=== PATIENT | female | born 1975 | race Two or more races ===

== ENCOUNTER → 2024-09-03 14:44 | Outpatient (BNVA) | payer OTHER, SELFPAY | PROVIDERS: Visit Provider Physician Assistant Surgical ==

== ENCOUNTER 2024-09-18 08:16 | Outpatient (AMB) | payer OTHER, SELFPAY ==
--- NOTE | 2024-09-18 11:57 | MHC.OFFVISWM ---
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*: Details: Start time: 11.45am, End time: 12.30pm ?I spent 40 minutes speaking with the patient on the phone plus an additional 5 minutes reviewing and updating records for a total of 45 minutes HPI Comments Details: Previous weight loss efforts: several diets Wakes up: 7am, Sleeps: 9am Breakfast: skips Lunch: 12pm (rice, beans and meat) Dinner: 6pm (root plants, plantains) Snacks: 9am (apple at times) Exercise: home stationary bike Fluids: Coffee (milk with creamer) 1cup/day, tea: rarely, soda: Coke or Pepsi, juice: none, ETOH: none PFSH Medical History (Updated 09/18/24 @ 11:59 by Nolan Strickland MD) Hypertension Morbid obesity Surgical History (Updated 09/03/24 @ 15:05 by Erlinda Feng CMA) Hx of section Family History (Updated 09/03/24 @ 15:06 by Erlinda Feng CMA) Mother No problems noted. Father No problems noted. Daughter No problems noted. Daughter No problems noted. Son No problems noted. Social History (Updated 09/03/24 @ 15:06 by Erlinda Feng CMA) Alcohol intake: never Patient Tobacco Use Status: Never used Tobacco Telehealth Telehealth Telehealth Platform: Telephone Location of provider rendering services: practice address Location of patient: address on file Patient Identification confirmed using: Name, : Yes Telehealth method: voice only Patient verbally consented to treatment: Yes Patient verbally consented to billing insurance company: Yes Patient informed of any privacy concerns related to visit: Yes Minutes spent on Phone/Video with Pt.: 45 Assessment & Plan Assessment & Plan (1) Morbid obesity: Code(s): E66.01 - Morbid (severe) obesity due to excess calories Category: Medical Plan: 1.? Plan for lap sleeve gastrectomy. If diaphragmatic or ventral hernias are present at time of surgery, these will be repaired laparoscopically as well. Risks and complications include possible conversion to an open procedure, anastomotic leak, bleeding requiring transfusion, small bowel obstruction, , DVT and pulmonary embolism, cardiac, or pulmonary complications, as termite control servicer complications such as anastomotic ulcer, insufficient weight loss and vitamin deficiencies. I emphasized the importance of close follow-up, adherence to instructions and good communication. 2. Nutritional counseling. Start with 2 CELEBRATE REBUILD protein (buy at [facility] [employer]) shakes (TWO scoops EACH in 8oz low fat unsweetened almond milk each) at 8am-10am and 11am-1pm, 1 protein bar (CELEBRATE protein bars, buy at [facility] [employer]) at 2pm-4pm, dinner at 5pm (12 forks of protein and 12 forks of salad/vegetables) AND one more protein bar after dinner at 7pm-9pm. So you do 2 protein shakes, 2 protein bars and one meal per day. Meal to include lean meat (beef, fish, pork, turkey, chicken), or northern irish yogurt, or egg whites, or beans with a salad with olive oil and fruits (berries, pears, apples, kiwi). Avoid salt, breads, potatoes, rice, pasta, desserts. 3. Each shake would be drunk slowly, like coffee in a period of 2 hours. 4. Cut each bar in 4 pieces and eat each piece in 30min ?to make each bar last 2 hours. 5. I emphasized the importance of measuring accurately the food portion and measure it when serving the food in plate 6. The meal portions include 12 full-size forks of meat and 12 full-size forks of salad. You always eat the meat portion but you can replace up to 6 forks for salad/vegetables with rice, potatoes or pasta, or a fruit ?if you like. The less you do it the better weight loss will be. 7. One full-size fork is what it can be scooped on the fork without falling aside and not what can be bit with the fork. Use regular forks like those you find in a typical restaurant. 8.? Please send me weight measurements as soon as possible and then once a week. Always include your diet and exercise plan. 9. Start stationary bike at a resistance level of 0.0 Increase level by 1.0 every 3 min to a max level of 6.0. Stay at this level for 3 min and then return to level 0.0 and repeat same steps until 300 calories are burned. Goal is to burn 2000 calories per week on exercise 10.?It is important of avoiding and for at least 18 months postoperatively and has been discussed at the infosession. 11. Goal is to lose at least 1.5-2lbs per week 12. Goal to lose 10% of your weight before surgery, which is about 36lbs. Ultimate weight goal: 320lbs before surgery 13. Please follow the diet plan exactly without any change. If you don't like something about the plan or you feel hungry you need to communicate with me so I can help you revise the plan. You should not change the plan yourself. 14. To be scheduled for EGD to assess the stomach's anatomy. The possibility of biopsies was discussed. Patient needs to avoid use of NSAIDs and aspirin for 1 week prior to EGD. Risks of perforation and bleeding was discussed with the patient. This will be an outpatient procedure with IV sedation.
== END 2024-09-18 12:31 | disposition home or self-care (01) ==
LOC: HO.HBS 08:16
PROVIDERS: Visit Provider Surgery
DX: E66.01 Morbid (severe) obesity due to excess calories (principal)
CPT/HCPCS: 99204

== ENCOUNTER → 2024-09-18 08:16 | Outpatient (BNVA) | payer OTHER, SELFPAY | PROVIDERS: Visit Provider Surgery ==

== ENCOUNTER 2024-09-30 09:18 | Outpatient (REF) | payer OTHER, SELFPAY ==
--- NOTE | 2024-09-30 09:30 | ECG_ITS ---
Test Reason : mor obesity e66.01 Blood Pressure : / mmHG Vent. Rate : 075 BPM Atrial Rate : 075 BPM P-R Int : 170 ms QRS Dur : 108 ms QT Int : 424 ms P-R-T Axes : 052 015 134 degrees QTc Int : 473 ms Normal sinus rhythm Minimal voltage criteria for LVH, may be normal variant ( [place] product ) T wave abnormality, consider lateral ischemia Prolonged QT Abnormal ECG No previous ECGs available Referred By: Nolan Strickland Electronically Signed By:ELY HYDE
[2024-09-30 09:56] LABS: MANUAL DIFF FLAG NO
[2024-09-30 10:57] LABS: Basophils Percent Auto 0.8 % (0-2); Eosinophils Absolute Auto 0.1 X10*3/uL (0.0-0.4); Eosinophils Percent Auto 2.1 % (0-4); Hematocrit 38.5 % (37.0-47.0); Hemoglobin 12.8 g/dl (12.0-16.0); Imm Gran Abs Auto 0.01 X10*3/uL (0.00-0.03); Imm Gran Pct Auto 0.2 % (0.0-0.4); Lymphocytes Absolute Auto 1.5 X10*3/uL (1.2-4.9); Lymphocytes Percent Auto 30.8 % (20-40); Mean Corpuscular HGB Conc 33.2 g/dl (31.0-35.0); Mean Corpuscular Hemoglobin 27.1 pg (27.0-33.0); Mean Corpuscular Volume 81.6 fL (80.0-98.0); Mean Platelet Volume 11.8 fL (9.4-12.3); Monocytes Absolute Auto 0.5 X10*3/uL (0.1-1.2); Monocytes Percent Auto 10.7 % (2-11); Neutrophils Absolute Auto 2.6 x10*3/uL (2.0-8.3); Neutrophils Percent Auto 55.4 % (45-73); Platelet Count 178 X10*3/uL (160-400); Red Blood Count 4.72 X10*6/uL (4.20-5.50); Red Cell Distribution Width 14.6 % (11.0-16.0); White Blood Count 4.8 X10*3/uL (4.8-10.8)
[2024-09-30 11:07] LABS: Estimated Average Glucose 105 mg/dL; Hemoglobin A1C 104.9714 umol/L; Hemoglobin A1c % 5.3 % (<6.0); Total Hemoglobin (HGBA1C) 3061.7896 umol/L
[2024-09-30 11:52] LABS: Alanine Aminotransferase 28 U/L (0-31); Albumin Level 4.1 g/dL (3.5-5.0); Alkaline Phosphatase 71 U/L (39-117); Anion Gap 15 (12-20); Aspartate Amino Transferase 36 U/L (5-31); Blood Urea Nitrogen 16 mg/dL (9-16); Calcium 9.6 mg/dL (8.4-10.2); Carbon Dioxide 27 mmol/L (22-29); Chloride 105 mmol/L (96-108); Cholesterol 229 mg/dL (<200); Estimated Glomerular Filt Rate > 60; Ferritin 39 ng/mL (10-250); Glucose Random 102 mg/dL (60-115); HDL Cholesterol 62 mg/dL (>40); Iron 141 mcg/dL (30-160); LDL Cholesterol Calculated 149 mg/dL (<100); Percent Iron Saturation 50 % (15-50); Potassium 3.1 mmol/L (3.3-5.1); Sodium 144 mmol/L (135-145); TSH reflex Free T4 2.26 uIU/mL (0.32-4.0); Total Iron Binding Capacity 280 mcg/dL (228-428); Total Protein 7.3 g/dL (6.5-8.0); Triglycerides 91 mg/dL (<150); Unsaturated Iron Binding 139 ug/dL; Vitamin D 25-OH Total 34.5 ng/mL (>30)
[2024-09-30 12:01] LABS: Folate 14.3 ng/mL (> or = 4.0); Vitamin B12 356 pg/mL (200-900)
[2024-09-30 12:22] LABS: Insulin 17 uU/mL (2-29)
[2024-10-04 22:03] LABS: Zinc 62 mcg/dL (60-130)
[2024-10-06 15:17] LABS: Vitamin B1 10 nmol/L (8-30)
[2024-10-07 08:58] LABS: Vitamin A 42 mcg/dL (38-98)
== END 2024-09-30 09:19 | disposition home or self-care (01) ==
LOC: HO.XRAY 09:18
PROVIDERS: PCP Internal Medicine; Visit Provider Surgery
DX: E66.01 Morbid (severe) obesity due to excess calories (principal); I10 Essential (primary) hypertension
CPT/HCPCS: 36415; 71046; 80053; 80061; 82306; 82607; 82728; 82746; 83036; 83525; 83540; 84425; 84443; 84590; 84630; 85025; 86140; 93005

== ENCOUNTER → 2024-09-30 09:30 | Outpatient (BNV) | payer OTHER, SELFPAY | PROVIDERS: PCP Internal Medicine; Visit Provider Internal Medicine | DX: R94.31 Abnormal electrocardiogram [ECG] [EKG] (principal) | CPT/HCPCS: 93010 ==

== ENCOUNTER 2024-10-14 07:09 | Day surgery (SDC) | payer OTHER, SELFPAY ==
--- NOTE | 2024-10-12 14:17 | HO.ANESPROP2 ---
Documented by User: Yvonne Katz NP 10/12/24 14:17 HPI - Anesthesia Eval Consult details Narrative: 49yo F for Upper Endoscopy PMFSH Active Problems Active Problems: All Active Problems Abnormal EKG (Acute) Vitamin B12 deficiency (Acute) Hypokalemia (Acute) Hypertension (Acute) Morbid obesity (Acute) Past Medical History Medical History (Updated 10/03/24 @ 10:54 by Nolan Strickland MD) Hypertension Morbid obesity Family History Family History (Updated 09/03/24 @ 15:06 by Erlinda Feng CMA) Mother No problems noted. Father No problems noted. Daughter No problems noted. Daughter No problems noted. Son No problems noted. Surgical History Surgical History (Updated 09/03/24 @ 15:05 by rElinda Feng CMA) Hx of section Social History Social History (Updated 09/03/24 @ 15:06 by Erlinda Feng CMA) Alcohol intake: never Patient Tobacco Use Status: Never used Tobacco Use of substances other than those prescribed or required for medical reasons: No Have you been hit, kicked, punched, or otherwise hurt by someone within the past year? If so, by whom?: No Are you DNR?: No Advance Directives: No Advance Directives Information Provided: Yes Recently lost weight without trying: No Nutrition Risks: No Nutritional Risk Meds Allergies Allergy/AdvReac Type Severity Reaction Status Date / Time No Known Allergies Allergy Verified 09/18/24 11:58 Home Medications ?Medication ?Instructions ?Recorded ?Confirmed ?Last Taken ?Type docusate sodium 100 mg capsule 100 mg PO BID 09/03/24 09/18/24 Unknown History ferrous sulfate 325 mg (65 mg 325 mg PO DAILY 09/03/24 09/18/24 Unknown History iron) tablet hydrochlorothiazide 12.5 mg tablet 12.5 mg PO DAILY 09/03/24 09/18/24 Unknown History losartan 100 mg tablet 100 mg PO DAILY 09/03/24 09/18/24 Unknown History Assessment and Plan Assessment Anesthesia Assessment: Chart Reviewed Documented by User: Desiree Escobar MD 10/14/24 08:07 [facility] Past Medical History Medical History (Updated 10/03/24 @ 10:54 by Nolan Strickland MD) Hypertension Morbid obesity Family History Family History (Updated 09/03/24 @ 15:06 by Erlinda Feng CMA) Mother No problems noted. Father No problems noted. Daughter No problems noted. Daughter No problems noted. Son No problems noted. Family history of problems with anesthesia: No Surgical History Surgical History (Updated 09/03/24 @ 15:05 by Erlinda Feng CMA) Hx of section History of Problems with Anesthesia: No Social History Social History (Updated 09/03/24 @ 15:06 by Erlinda Feng CMA) Alcohol intake: never Patient Tobacco Use Status: Never used Tobacco Use of substances other than those prescribed or required for medical reasons: No Have you been hit, kicked, punched, or otherwise hurt by someone within the past year? If so, by whom?: No Are you DNR?: No Advance Directives: No Advance Directives Information Provided: Yes Recently lost weight without trying: No Nutrition Risks: No Nutritional Risk Meds Allergies Allergy/AdvReac Type Severity Reaction Status Date / Time No Known Allergies Allergy Verified 09/18/24 11:58 Home Medications ?Medication ?Instructions ?Recorded ?Confirmed ?Last Taken ?Type docusate sodium 100 mg capsule 100 mg PO BID 09/03/24 09/18/24 Unknown History ferrous sulfate 325 mg (65 mg 325 mg PO DAILY 09/03/24 09/18/24 Unknown History iron) tablet hydrochlorothiazide 12.5 mg tablet 12.5 mg PO DAILY 09/03/24 09/18/24 Unknown History losartan 100 mg tablet 100 mg PO DAILY 09/03/24 09/18/24 Unknown History Exam Airway Mallampati Class: II TM Dist: >3cm Neck ROM: Full Assessment and Plan Assessment Anesthesia Assessment: Anesthesia Plan Discussed Final Anesthetic Review Family History of Problems with Anesthesia: No History of Problems with Anesthesia: No NPO: Yes ASA Class: III Final Preanesthetic Review: No Changes in Pt Med Stat, Meds/Allgs Chart Reviewed, Consent Obtained/Reviewed and Anes Risks/Benef Reviewed Patient Risk: Intermediate Procedure Risk: Low Anesthetic Plan Anesthetic Plan: TIVA Disposition: Standard PACU
[2024-10-14 07:57] VITALS: BMI 52.6
[2024-10-14 08:20] VITALS: BP 167/94; PULSE 84; RESP 16; TEMP 36.6; O2SAT 100
[2024-10-14] MEDS: Lactated Ringers 1,000 ML 80 ML IVCONT (08:20)
--- NOTE | 2024-10-14 08:45 | MHC.SHP ---
Pre-Procedural Eval Section A - 24 Hr Update-Section A only Date of Service: 10/14/24 The patient is an INPATIENT: No The patient has been examined within 24 hours of the surgical procedure. The History & Physical has been completed within 30 days and I have reviewed it.: Yes Section B - Complete if H&P > 30 days Chief Complaint: Morbid (severe) obesity due to excess calories Relevant Family History (Specify if Yes): No Relevant Social History: None Present Medications: None Medical History: No relevant PMH History of Previous Operations: No relevant previous surgery Allergies: Allergies Allergy/AdvReac Type Severity Reaction Status Date / Time No Known Allergies Allergy Verified 10/14/24 08:22 Review of Systems Sugical H&P ROS: Negative: Constitution, Cardiovascular, Respiratory, Neurological, Psychiatric, Hem-Onc, Allergic/Immunologic, Gastrointestinal, Genitourinary, Musculoskeletal, Integumentary, Endocrine and Eyes/Ears/Nose/Throat Exam Surgical H&P Exam: Normal: HEENT, Normal: Heart, Normal: Lungs, Normal: Extremities, Normal: Abdomen, Normal: Skin and Normal: Neurological Plan Diagnosis/Plan: Unchanged (EGD to assess the stomach's anatomy. Risks of bleeding and perforation were discussed with the patient and she is in agreement with the plan.) I have reviewed the history and physical and performed a pertinent physical examination on my patient. No changes have occurred unless specified. Time Spent With Patient Time: Total time managing care of this patient today ____ minutes.
--- NOTE | 2024-10-14 08:51 | PM.OP ---
Brief Operative Note Date of Service: 10/14/24 Pre-op diagnosis: Morbid obesity Post-op diagnosis: same (Large gastric polyps) Procedure: PROCEDURE DATE: 10/14/2024 PREOPERATIVE DIAGNOSIS: Morbid obesity POSTOPERATIVE DIAGNOSIS: ?Same as above. 1) large gastric polyps PROCEDURE: [id number] with biopsies Surgeon: ?Randolph Strickland M.D.. Ph.D. Human Resource Analyst: None ? Anesthesia: IV sedation Estimated blood loss: ?Minimal FINDINGS AND PROCEDURE: ? OPERATIVE INDICATIONS: ?The patient is a 49 year old female known to me who is interested in bariatric surgery.. Based on this information I recommended an upper endoscopy to evaluate the stomach's anatomy. Risks and complications of the surgery were discussed with the patient in advance particularly the possibility of perforation or bleeding that may require surgical intervention. The patient understood the risks and was in agreement with the plan. ? PROCEDURE: After informed consent was obtained by the patient, the patient was ?transferred to the Operating Room and was placed in the supine position.? After successful induction of IV sedation, a mouth block was inserted and the patient was placed in the left lateral decubitus position. An upper endoscopy was performed next, the oropharynx and esophagus appeared within the normal limits. There was no hiatal hernia. The z-line was smooth. Two biopsies were obtained from the distal esophagus 2-3 cm proximal to the GE junction and two additional biopsies from the GE junction. The stomach was entered and it appeared to be of normal size. There was no gastritis. There was a large 1-2cm mobile polyp with inflammatory changes and large stalk at the mid gastric body. Three biopsies were obtained. There was no stricture or ulcer. A biopsy was obtained from the gastric fundus and antrum. No significant bleeding was noted from any of the biopsy sites. Retroflexion of the scope revealed a normal GE junction. The scope was then advanced into the duodenum which appeared to be normal as well. There was a large 1-2cm mobile polyp with inflammatory changes and large stalk originating from the pylorus and laying into the 1st portion of the duodenum. Four biopsies were obtained.At that point the duodenum ?and the stomach were decompressed and the scope was withdrawn from the patient's mouth. The patient extubated and was transferred in stable condition to the Recovery Room for further care. I was present and performed all steps of the procedure. There were no residents to assist with this case. Randolph Strickland M.D., Ph.D. Surgeon: Nolan Strickland MD Anesthesia: MAC Was an Human Resource Analyst used for this Procedure?: No Estimated blood loss (mL): 0 IV fluids (mL): 400 Urine output (mL): 0 (No Chavez to record output) Pathology: other (1) antrum x1, 2) fundus x1, 3) GE junction x2, 4) distal esophagus x2, 5) mid-gastric body polyp x3, 6) pyloric gastric polyp x4) Condition: stable Disposition: PACU
[2024-10-14 09:31] VITALS: BP 113/75; PULSE 74; RESP 16; TEMP 36.4; O2SAT 100
[2024-10-14 09:46] VITALS: BP 128/79; PULSE 80; RESP 18; TEMP 36.4; O2SAT 99
== END 2024-10-14 10:32 | disposition home or self-care (01) ==
PROVIDERS: PCP Internal Medicine; Visit Provider Surgery
PROC: 0DJ08ZZ Inspection of Upper Intestinal Tract, Via Natural or Artificial Opening Endoscopic (ICD-10-PCS; CPT 43235; principal; 2024-10-14 08:50)
DX: E66.01 Morbid (severe) obesity due to excess calories (principal); Z68.43 Body mass index [BMI] 50.0-59.9, adult; K31.7 Polyp of stomach and duodenum; I10 Essential (primary) hypertension; Z79.899 Other long term (current) drug therapy
CPT/HCPCS: 43239; 88305; 88313; 88342; J2003; J2704

== ENCOUNTER → 2024-10-14 07:09 | Outpatient (BNV) | payer OTHER, SELFPAY | PROVIDERS: PCP Internal Medicine; Visit Provider Surgery | DX: K31.7 Polyp of stomach and duodenum (principal) | CPT/HCPCS: 43239 ==

== ENCOUNTER → 2024-10-29 08:08 | Outpatient (AMB) | payer OTHER, SELFPAY ==
--- NOTE | 2024-10-29 08:07 | MHC.WMTHER ---
Intake Intake Visit Reasons: VIDEO BH Intake Allergies No Known Allergies Allergy (Verified 10/14/24 08:22) [facility] Medical History (Updated 11/14/24 @ 10:58 by Nolan Strickland MD) Hypertension Morbid obesity Surgical History (Updated 09/03/24 @ 15:05 by Erlinad Feng CMA) Hx of section Family History (Updated 09/03/24 @ 15:06 by Erlinda Feng CMA) Mother No problems noted. Father No problems noted. Daughter No problems noted. Daughter No problems noted. Son No problems noted. Social History (Updated 09/03/24 @ 15:06 by Erlinda Feng CMA) Alcohol intake: never Patient Tobacco Use Status: Never used Tobacco Behavioral Health Assessment Weight Management Therapy Therapy Notes Details PT is a 49 years old female, who presents for a visit to complete BH assessment as part of surgical weight loss program. Presenting Concerns Referral Source WMP Provider. PT has initial visit with Dr. Balbuena on 09/18/2024 Reason for referral Completion of behavioral health assessment as part of process for weight-loss surgery. Precipitating Event Obesity. 356Lbs as of 09/03/2024 Living Situation Current Living Situation Rent At risk of losing current housing? No Satisfied with current living situation? Yes Comments PT lives with her and 2 daughters Food/Weight/Diet Expectations of change The initial goal is to lose 10% of her weight before surgery, about 36 lbs. Ultimate weight goal: 320lbs before surgery Most recent weight (): 330Lbs PT is implementing the following: Current meal plan: 2 protein shakes, 2 protein bars, and one meal per day. Exercise plan: History/Relationship with food Example of meals before starting the program: Breakfast: Lunch: Dinner: Snacks: Drinks/Liquids: History/Relationship with weight In the last 10 years, the patient's Lowest weight was and highest Social History Family history and relationship 26 years ago. She has 2 daughters, who are 21 and 13, and 1 child. PT has 6 siblings. Mother alive and father passed. 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 Developmental history and status None reported. Social support Sister, daughter. Community support PCP. Yazidi/Spirituality Protestant. Cultural/Ethnic information Born and raised in [facility]. Moved to the 2 years ago. Legal Involvement and History Current or historical involvement with the legal system? None reported. Education Highest grade completed 8th grade. Preferred learning style Learn by doing and Visual Currently enrolled in educational program? No Interested in further educational program? Yes (Wants to start ESL classes. 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 Employment Employment Status [employer] ([employer] - 38 Hr at week.) Wants help to find employment? No Meaningful activities Reading, Family activities. Financial Situation Describe current financial situation Comfortable and Occasional struggle Financial assistance? None Mental Health and Addiction Treatment Current/Past substance abuse? No Comments Alcohol: Socially. 1-2 beers. Cigarettes/Tobacco: None Cannabis/Edibles: None Current/Past addictive behavior concerns? No Psychiatric history Never has been in treatment. PT denies ever being in crisis or inpatient for mental health. There is no history and/or current concern about SI/Sa and self-harm or other harm. Medical and Physical Health Summary Additional Medical History not covered in history None reported Sexual History concerns None reported Physical exam in the last year? Yes Questionnaires PHQ-9 Over the last 2 weeks, how often have you been bothered by any of the following problems? 1. Little interest or pleasure in doing things: not at all 2. Feeling down, depressed, or hopeless: not at all 3. Trouble falling or staying asleep, or sleeping too much: nearly every day 4. Feeling tired or having little energy: nearly every day 5. Poor appetite or overeating: more than half the days 6. Feeling bad about yourself - or that you are a failure or have let yourself or your family down: several days 7. Trouble concentrating on things, such as reading the newspaper or watching television: not at all 8. Moving or speaking so slowly that other people could have noticed. Or the opposite - being so fidgety or restless that you have been moving around a lot more than usual: not at all 9. Thoughts that you would be better off or of hurting yourself in some way: not at all Total score: 9 Depression Screening Interpretation: Positive (From New PT pack. New one will be administered at next visit.) Depression Screening Done: Yes Source: Developed by Drs. Jonathan Jaimes, Eliana Lou, Jamison Newberry and colleagues, with an educational autumn from [employer]. Binge Eating Scale Group 1 A. I don't feel self-conscious about my wt. or body size when I'm with others. B. I feel concerned about how I look to others, but it normally does not make me fell disappointed with myself C. I do get self-conscious about my appearance and wt. which makes me feel disappointed in myself. D. I feel very self-conscious about my wt. and frequently I feel intense shame and disgust for myself. I try to avoid social contacts because of my self-consciousness. Response Group 1: B Group 2 A. I don't have any difficulty eating slowly in the proper manner. B. Although I seem to gobble down foods, I don't end up feeling stuffed because of eating to much. C. At times, I tend to eat quickly and then, I feel uncomfortably full afterwards. D. I have the habit of bolting down my food, without really chewing it. When this happens I usually feel uncomfortably stuffed because I've eaten to much. Response Group 2: D Group 3 A. I feel capable to control my eating urges when I want to. B. I feel like I have failed to control my eating more than the average person. C. I feel utterly helpless when it comes to feeling in control of my eating urges. D. Because I feel so helpless about controlling my eating I have become very desperate about trying to get control. Response Group 3: D Group 4 A. I don't have the habit of eating when I'm bored. B. I sometimes eat when I'm bored, but often I'm able to get busy and get my mind off food. C. I have a regular habit of eating when I'm bored, but occasionally, I can use some other activity to get my mind off eating. D. I have a strong habit of eating when I'm bored. Nothing seems to help me breath the habit. Response Group 4: C Group 5 A. I'm usually physically hungry when I eat something. B. Occasionally, I eat something on impulse even though I really am not hungry. C. I have the regular habit of eating foods, that I might not really enjoy, to satisfy a hungry feeling even though physically, I don't need the food. D. Although I'm not physically hungry, I get a hungry feeling in my mouth that only seems to be satisfied when I eat a food, like sandwich, that fills my mouth. Sometimes, when I eat the food to satisfy my mouth hunger, I then spit the food out so I won't gain weight. Response Group 5: A Group 6 A. I don't feel any guilt or self-hate after I overeat. B. After I overeat, occasionally I feel guilt or self-hate. C. Almost all the time I experience strong guilt or self-hate after I overeat. Response Group 6: A Group 7 A. I don't lose total control of my eating when dieting even after periods when I overeat. B. Sometimes when I eat a forbidden food on a diet, I feel like I blew it and eat even more. C. Frequently, I have the habit of saying to myself, I've blown it now, why not go all the way, when I overeat on a diet. When that happens I eat more. D. I have a regular habit of starting a strict diets for myself but I break the diets by going on an eating binge. My life seems to be either a feast or famine. Response Group 7: D Group 8 A. I rarely eat so much food that I feel uncomfortably stuffed afterwards. B. Usually about once a month, I each such a quantity of food, I end up feeling very stuffed. C. I have regular periods during the month when I eat large amounts of food, either at mealtime or at snacks. D. I eat so much food that I regularly feel quite uncomfortable after eating and sometimes a bit nauseous. Response Group 8: C Group 9 A. My level of calorie intake does not go up very high or go down very low on a regular basis. B. Sometimes after I overeat, I will try to reduce my caloric intake to almost nothing to compensate for the excess calories I've eaten. C. I have a regular habit of overeating during the night. It seems that my routine is not to be hungry in the morning but overeat in the evening. D. In my adult years, I have had week-long periods where I practically starve myself. This follows periods when I overeat. It seems I live a life of either feast or famine. Response Group 9: D Group 10 A. I usually am able to stop eating when I want to. I know when enough is enough. B. Every so often, I experience a compulsion to eat which I can't seem to control. C. Frequently, I experience strong urges to eat which I seem unable to control, but at other times I can control my eating urges. D. I feel incapable of controlling urges to eat. I have a fear of not being able to stop eating voluntarily. Response Group 10: B Group 11 A. I don't have any problem stopping eating when I feel full. B. I usually can stop eating when I feel full but occasionally overeat leaving me feeling uncomfortably stuffed. C. I have a problem stopping eating once I start and usually I feel uncomfortably stuffed after I eat a meal. D. Because I have a problem not being able to stop eating when I want, I sometimes have to induce vomiting to relieve my stuffed feeling. Response Group 11: B Group 12 A. I seem to eat just as much when I'm with others, Family social gatherings as when I'm by myself. B. Sometimes, when I'm with other persons, I don't eat as much as I want to eat because I'm self-conscious about my eating. C. Frequently, I eat only a small amount of food when others are present, because I'm very embarrassed about my eating. D. I feel so ashamed about overeating that I pick times to overeat when I know no one will see me. I feel like a closet eater. Response Group 12: B Group 13 A. I eat three meals a day with only an occasional between meal snack. B. I eat 3 meals a day, but I also normally snack between meals. C. When I am snacking heavily, I get in the habit of skipping regular meals. D. There are regular periods when I seem to be continually eating, with no planned meals. Response Group 13: D Group 14 A. I don't think much about trying to control unwanted eating urges. B. At least some of the time, I feel my thoughts are pre-occupied with trying to control my eating urges. C. I feel that frequently I spend much time thinking about how much I ate or about trying not to eat anymore. D. It seems to me that most of my waking hours are pre-occupied by thoughts about eating or not eating. I feel like I'm constantly struggling not to eat. Response Group 14: C Group 15 A. I don't think about food a great deal. B. I have strong craving for food but they last only for brief periods of time. C. I have days when I can't seem to think about anything else but food. D. Most of my days seem to be pre-occupied with thoughts about food. I feel like I live to eat. Response Group 15: B Group 16 A. I usually know whether or not I'm physically hungry. I take the right portion of food to satisfy me. B. Occasionally, I feel uncertain about knowing whether or not I'm physically hungry. A these times it's hard to know how much food I should take to satisfy me. C. Even though I might know how many calories I should eat, I don't have any idea what is a normal amount of food for me. Response Group 16: C Binge Eating Score: 28 Score less than 17 Minimal Risk Score between 18-26 Moderate Risk Score between 27-46 High Risk Assessment & Plan Assessment & Plan (1) Morbid obesity: Code(s): E66.01 - Morbid (severe) obesity due to excess calories (2) Adjustment disorder, unspecified: Code(s): F43.20 - Adjustment disorder, unspecified (3) Problems related to inappropriate diet and eating habits: Code(s): Z72.4 - Inappropriate diet and eating habits Plan PT is not yet cleared. She will return on 11/16/24 at 8:00 AM via Telehealth to continue the assessment. Telehealth Telehealth Telehealth Platform: [employer] Location of provider rendering services: other Location of patient: address on file Patient Identification confirmed using: Name, : Yes Telehealth method: video Patient verbally consented to treatment: Yes Patient verbally consented to billing insurance company: Yes Patient informed of any privacy concerns related to visit: Yes Minutes spent on Phone/Video with Pt.: 60 Coding Level of Care Code New Pt Tele Psy Diag Ariadneal ([id number]) Patient Type New Diagnoses Morbid obesity E66.01 Adjustment disorder, unspecified F43.20 Problems related to inappropriate diet and eating habits Z72.4 Time Spent (min) 60
== END ==
PROVIDERS: PCP Internal Medicine; Visit Provider Counselor Mental Health
DX: E66.01 Morbid (severe) obesity due to excess calories (principal); F43.20 Adjustment disorder, unspecified; Z72.4 Inappropriate diet and eating habits
CPT/HCPCS: 90791

== ENCOUNTER 2024-10-30 10:33 | Outpatient (REF) | payer OTHER, SELFPAY | END 2024-10-30 10:34 | disposition home or self-care (01) | LOC: HO.US 10:33 | PROVIDERS: PCP Internal Medicine; Visit Provider Surgery | DX: E66.01 Morbid (severe) obesity due to excess calories (principal); I10 Essential (primary) hypertension | CPT/HCPCS: 76700; 76981 ==

== ENCOUNTER → 2024-10-30 10:36 | Outpatient (BNV) | payer OTHER, SELFPAY | PROVIDERS: PCP Internal Medicine; Visit Provider Radiology Diagnostic Radiology | DX: K80.20 Calculus of gallbladder without cholecystitis without obstruction (principal); R16.1 Splenomegaly, not elsewhere classified | CPT/HCPCS: 76700 ==

== ENCOUNTER → 2024-11-12 08:12 | Outpatient (REF) | payer OTHER, SELFPAY ==
--- NOTE | 2024-11-12 08:15 | CA_ITS ---
Acquisition Time: 2024-11-12 09:08:54 Total Exercise Time: 00:03:05 Test Indications: Pre-Op Evaluation HTN,Abnormal ECG Medications: HCTZ LOSARTAN IRON COLACE Protocol: KEVIN Max HR: 171 BPM 101% of Pred: 169 BPM Max BP: 248/120 mmHG Max Work Load: 4.6 METS Exercise Stress Test with exercise 3 mins 5 secs of Kevin Protocol, held at stage 1, achieving 98% MPHR, reports of severe SOB, requesting to stop, no chest discomfort, without any arrythmias, with baseline BP 128/70 that went up to 248/120 with exercise. With EKG changes meeting criteria for ischemia - ST depression noted inferiorly and in V4-V6. In recovery, continues to deny chest discomfort, breathing returned to baseline. 23 minutes into recovery and EKGs improved very gradually. BP improved to 148/98. Recommend further testing with Cardiology referral, if needed. Test reviewed with Dr. Lozada. Referred By: Nolan Strickland Electronically Signed By: Regulo Harvey
--- NOTE | 2024-11-12 08:15 | CA_ITS ---
Transthoracic Echocardiogram Patient (Last, First, Middle): Rupinder Engle, Gender: Female Date of : 1975 Age: 49 Procedure Date: 11/12/2024 Procedure Type: Transthoracic Echocardiogram Location: OP Height: 172.72 cm Weight: 147.87 kg BSA: 2.52 m2 Heart Rate: bpm BP: 128 / 78 mmHg Tile Finisher: [place] Referring MD: Nolan Strickland MD Symptoms: R94.31 - Abnormal electrocardiogram [ECG] [EKG] Study Quality: Adequate ECG Rhythm: Sinus Conclusions: - The left ventricular systolic function is normal. The calculated ejection fraction is 65% by biplane method. - No obvious valvular pathology seen on this study. - There is mild dilatation of the ascending aorta measuring 4.00 cm. Findings Left Ventricle Normal left ventricular cavity size. There is mildly increased left ventricular wall thickness. The left ventricular systolic function is normal. The calculated ejection fraction is 65% by biplane method. There is no evidence of regional wall motion abnormalities. Diastolic function is normal for age. Right Ventricle Normal right ventricular cavity size and systolic function. Atria Both atria are normal in size. Aortic Valve There is a normal trileaflet aortic valve. There is no aortic valve stenosis. There is no aortic valve regurgitation. Mitral Valve The mitral valve appears normal. There is no mitral valve regurgitation. There is no mitral valve stenosis. Pulmonic Valve The pulmonic valve is likely normal. Tricuspid Valve There is no tricuspid valve regurgitation. Tricuspid regurgitation envelope is inadequate for calculation of right ventricular systolic pressure. Great Vessels There is mild dilatation of the ascending aorta measuring 4.00 cm. Venous The inferior vena cava was not well visualized. Pericardium/Pleural There is no evidence of pericardial effusion. Prior Study Comparison No prior study available for comparison. Recommendations, Care & Conclusions No obvious valvular pathology seen on this study. Measurements 2D Linear Measurements IVSd: 1.26 0.6-0.9/0.6-1.0 cm LVIDd: 4.72 3.9-5.3/4.2-5.9 cm LVIDd Index: 1.87 2.4-3.2/2.2-3.1 cm/m2 LVIDs: 2.98 2.0-3.6 cm LVPWd: 1.27 0.7-1.1 cm LA Diam: 4.00 2.7-3.8/3.0-4.0 cm LAIDs Index: 1.59 1.5-2.3 cm/m2 LV Mass: 286.96 67-162/88-224 g LV Mass Index: 113.87 43-95/49-115 g/m2 LVOT Diam: 2.30 3.0+(-)1.3 cm 2D Systolic Function EF 4C: 66.70 >55% EF 2C: 66.50 >55% EF BiP: 65.40 >55% Mitral Valve MV Pk E: 0.85 MV PK A: 0.56 MV Decel Time: 201.00 E/A: 1.50 E'Lateral: 10.10 E'Medial: 7.72 E/E' Med: 11.00 E/E' Lat: 8.40 PHT: 59.00 MVA PHT: 3.73 Decel O'Brien: 4.24 Aortic Valve AoV Pk Luke: 1.56 AoV Mn Luke: 1.04 AoV VTI: 0.36 AoV Pk Grad: 10.00 Aov Mn Grad: 5.00 BAUTISTA Cont.VTI: 3.50 LVOT LVOT Pk Luke: 1.32 LVOT Mn Luke: 0.77 LVOT VTI: 0.30 LVOT Pk Grad: 7.00 LVOT Mn Grad: 3.00 LVOT Diam: 2.30 LVOT Area: 4.15 Diastolic Function MV Pk E: 0.85 MV Pk A: 0.56 E/A: 1.50 E'Medial: 7.72 E/E' Med: 11.00 E' Laterial: 10.10 E/E' Lat: 8.40 Right Ventricle TAPSE (mm): 27.70 TVS' Luke: 13.20 Great Vessels Aorta Sinus of Valsalva: 3.38 2.0-3.[address] Ridge: 3.13 1.7-3.4 cm Ao Asc: 4.00 2.1-3.4 cm Ao Arch: 3.50 Updated in Other Vendor System with Status of Final Cristhian Lozada MD electronically signed on 11/14/2024 12:36:18 PM with status of Final
== END ==
LOC: HO.CARD 08:12
PROVIDERS: PCP Internal Medicine; Visit Provider Surgery
DX: R94.31 Abnormal electrocardiogram [ECG] [EKG] (principal)
CPT/HCPCS: 93017; 93306

== ENCOUNTER → 2024-11-12 08:15 | Outpatient (BNV) | payer OTHER, SELFPAY | PROVIDERS: PCP Internal Medicine | DX: R94.31 Abnormal electrocardiogram [ECG] [EKG] (principal); I77.810 Thoracic aortic ectasia | CPT/HCPCS: 93320; 93325; 93350 ==

== ENCOUNTER 2024-11-24 08:13 | Outpatient (AMB) | payer OTHER, SELFPAY ==
--- NOTE | 2024-11-24 08:00 | A.OFFWM_ITS ---
Intake Intake Visit Reasons: TV BH F/U Allergies No Known Allergies Allergy (Verified 10/14/24 08:22) [facility] Medical History (Updated 11/14/24 @ 10:58 by Nolan Strickland MD) Hypertension Morbid obesity Surgical History (Updated 09/03/24 @ 15:05 by Erlinda Feng CMA) Hx of section Family History (Updated 09/03/24 @ 15:06 by Erlinda Feng CMA) Mother No problems noted. Father No problems noted. Daughter No problems noted. Daughter No problems noted. Son No problems noted. Social History (Updated 09/03/24 @ 15:06 by Erlinda Feng CMA) Alcohol intake: never Patient Tobacco Use Status: Never used Tobacco Behavioral Health Assessment Weight Management Therapy Therapy Notes Details The patient is a 49-year-old female presenting for a behavioral health assessment as part of a surgical weight loss program. She reports a long history of obesity, having been over 300 lbs for several years, and is interested in weight-loss surgery to address her obesity. The patient hopes to become healthier, more active, and consistent throughout the process, recognizing it will be a long journey. The patient denies any history of mental health treatment, past behavioral health hospitalizations, or crises. She also denies any recent safety concerns regarding suicidal ideation (SI), self-harm, or harm to others. No substance use history is reported, and there is no indication of stress or emotional eating. The PHQ-9 and BES were administered today. The PHQ-9 score indicates no current symptoms of depression or other concerning psychological symptoms. The BES score has decreased, reflecting positive changes in eating behavior. The patient reports being more mindful of her hunger and cravings, eating more slowly, and following the meal plan, which has led to her feeling more satisfied. Mental status exam is within normal limits, and there is no evidence of impaired functioning. The patient demonstrates positive engagement in the weight loss program and is showing signs of improved eating behaviors. She is cleared from a behavioral health standpoint for weight-loss surgery and will Follow-up with this provider in 1-2 weeks after surgery to monitor progress. Presenting Concerns Referral Source WMP Provider. PT has initial visit with Dr. Balbuena on 09/18/2024 Reason for referral Completion of behavioral health assessment as part of process for weight-loss surgery. Precipitating Event Obesity. 356Lbs as of 09/03/2024 Living Situation Current Living Situation Rent At risk of losing current housing? No Satisfied with current living situation? Yes Comments PT lives with her and 2 daughters Food/Weight/Diet Expectations of change The initial goal is to lose 10% of her weight before surgery, which amounts to approximately 36 lbs. Her ultimate weight goal is to reach 320 lbs before the procedure. The patient started the program at a weight of 356 lbs. As of October 24, her weight was 330 lbs, and as of November 24, 2024, she weighed 319 lbs. While the patient is uncertain about her total weight loss goal, she would be satisfied with reaching at least 260 lbs. Her main objectives are to live a healthier life and to have more energy. PT is implementing the following: Current meal plan: 2 protein shakes, 2 protein bars, and one meal per day. Exercise plan: stationary bike. History/Relationship with food The patient reports [place] [facility], and her regular diet consisted mainly of carbohydrates and meats. For breakfast, she would have coffee with milk and soda crackers. Lunch typically included rice, beans, meat, and salad, making it the main meal of the day. Dinner consisted of boiled plantains with eggs. In her culture, snacking is not common, although she might have an apple if she feels hungry in the afternoon. In terms of beverages, she drinks one cup of coffee and one soda each day. The patient mentions that she sometimes eats more when she feels sad, but this is not a consistent behavior. Currently, she is doing well with her meal plan, but she finds it challenging to cook for both herself and others at work and ho me. History/Relationship with weight The patient reports that most of her family on her father's side struggle with obesity. 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 Over the past 10 years, she has maintained a weight of over 300 pounds. When she had her last child in 2011, she weighed around 320 pounds. The patient cannot recall when she last weighed under 200 pounds, but she does remember being under 300 pounds during her 20s. History/Relationship with dieting Different diets on her own. She has also done Ketto, intermittent fasting for 28 days. Around 2019 she started developing more awareness of her need to lose weight and through diet and physical activity, she lost 35Lbs. PT reports that since she has to lose a lot then she gets demotivated once is unable to lose as fast. Binge Eating Do you frequently eat large amounts of food in short periods of time, not feeling physically hungry? Yes Do you feel out of control when you eat a large amount of food in a short period of time? No Do you eat large amounts of food rapidly and typically alone? Yes Night Eating Do you wake up at least once during the night to eat? No If you wake up in the night, do you find that it is necessary to eat something in order to fall back asleep? No Do you have little or no appetite in the morning and feel very hungry in the evening, often overeating between dinner and when you go to bed? Yes Social History Family history and relationship 26 years ago. She has 2 daughters, who are 21 and 13, and 1 child. PT has 6 siblings. Mother alive and father passed. 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 Developmental history and status None reported. Social support Sister, daughter. Community support PCP. Mosque/Spirituality Mandaen. Cultural/Ethnic information Born and raised in [facility]. Moved to the 2 years ago. Legal Involvement and History Current or historical involvement with the legal system? None reported. Education Highest grade completed 8th grade. Preferred learning style Learn by doing and Visual Currently enrolled in educational program? No Interested in further educational program? Yes (Wants to start ESL classes. 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 No Meaningful activities Reading, Family activities. Financial Situation Describe current financial situation Comfortable and Occasional struggle Financial assistance? None Service Service? No Mental Health and Addiction Treatment Current/Past substance abuse? No Comments Alcohol: Socially. 1-2 beers. Cigarettes/Tobacco: None Cannabis/Edibles: None Current/Past addictive behavior concerns? No Psychiatric history There has never been any mental health treatment. The patient denies ever being in crisis or requiring inpatient care for mental health issues. There is no history or current concern regarding suicidal ideation, suicidal attempt, self-harm, or harm to others. Medical and Physical Health Summary Additional Medical History not covered in history None reported Sexual History concerns None reported Physical exam in the last year? Yes Pain Screening Current pain? Yes Pain in the last few months? Yes Comments different aches and pains in her body. Medications Is the patient compliant with medications? Yes Does the patient have Dunlap Guardian in place? Not applicable Does the patient use complimentary health approaches? No Trauma/Abuse History History of trauma? Yes (Lost a child. ) Questionnaires PHQ-9 Over the last 2 weeks, how often have you been bothered by any of the following problems? 1. Little interest or pleasure in doing things: not at all 2. Feeling down, depressed, or hopeless: several days 3. Trouble falling or staying asleep, or sleeping too much: not at all 4. Feeling tired or having little energy: not at all 5. Poor appetite or overeating: not at all 6. Feeling bad about yourself - or that you are a failure or have let yourself or your family down: not at all 7. Trouble concentrating on things, such as reading the newspaper or watching television: not at all 8. Moving or speaking so slowly that other people could have noticed. Or the opposite - being so fidgety or restless that you have been moving around a lot more than usual: not at all 9. Thoughts that you would be better off or of hurting yourself in some way: not at all Total score: 1 Depression Screening Interpretation: Negative Depression Screening Done: Yes 01617 - PHQ-9 Billing: Yes Source: Developed by Drs. Jonathan Jaimes, Eliana Lou, Jamison Newberry and colleagues, with an educational autumn from [employer]. Binge Eating Scale Group 1 A. I don't feel self-conscious about my wt. or body size when I'm with others. B. I feel concerned about how I look to others, but it normally does not make me fell disappointed with myself C. I do get self-conscious about my appearance and wt. which makes me feel disappointed in myself. D. I feel very self-conscious about my wt. and frequently I feel intense shame and disgust for myself. I try to avoid social contacts because of my self- consciousness. Response Group 1: B Group 2 A. I don't have any difficulty eating slowly in the proper manner. B. Although I seem to gobble down foods, I don't end up feeling stuffed because of eating to much. C. At times, I tend to eat quickly and then, I feel uncomfortably full afterwards. D. I have the habit of bolting down my food, without really chewing it. When this happens I usually feel uncomfortably stuffed because I've eaten to much. Response Group 2: D (Working on practicing mindful eating. ) Group 3 A. I feel capable to control my eating urges when I want to. B. I feel like I have failed to control my eating more than the average person. C. I feel utterly helpless when it comes to feeling in control of my eating urges. D. Because I feel so helpless about controlling my eating I have become very desperate about trying to get control. Response Group 3: B (D before.) Group 4 A. I don't have the habit of eating when I'm bored. B. I sometimes eat when I'm bored, but often I'm able to get busy and get my mind off food. C. I have a regular habit of eating when I'm bored, but occasionally, I can use some other activity to get my mind off eating. D. I have a strong habit of eating when I'm bored. Nothing seems to help me elvin th the habit. Response Group 4: C Group 5 A. I'm usually physically hungry when I eat something. B. Occasionally, I eat something on impulse even though I really am not hungry. C. I have the regular habit of eating foods, that I might not really enjoy, to satisfy a hungry feeling even though physically, I don't need the food. D. Although I'm not physically hungry, I get a hungry feeling in my mouth that only seems to be satisfied when I eat a food, like sandwich, that fills my mouth. Sometimes, when I eat the food to satisfy my mouth hunger, I then spit the food out so I won't gain weight. Response Group 5: A Group 6 A. I don't feel any guilt or self-hate after I overeat. B. After I overeat, occasionally I feel guilt or self-hate. C. Almost all the time I experience strong guilt or self-hate after I overeat. Response Group 6: A Group 7 A. I don't lose total control of my eating when dieting even after periods when I overeat. B. Sometimes when I eat a forbidden food on a diet, I feel like I blew it and eat even more. C. Frequently, I have the habit of saying to myself, I've blown it now, why not go all the way, when I overeat on a diet. When that happens I eat more. D. I have a regular habit of starting a strict diets for myself but I break the diets by going on an eating binge. My life seems to be either a feast or famine. Response Group 7: B (D before. She has eaten other things but has been able to return to the plan and not go back. ) Group 8 A. I rarely eat so much food that I feel uncomfortably stuffed afterwards. B. Usually about once a month, I each such a quantity of food, I end up feeling very stuffed. C. I have regular periods during the month when I eat large amounts of food, either at mealtime or at snacks. D. I eat so much food that I regularly feel quite uncomfortable after eating and sometimes a bit nauseous. Response Group 8: C Group 9 A. My level of calorie intake does not go up very high or go down very low on a regular basis. B. Sometimes after I overeat, I will try to reduce my caloric intake to almost nothing to compensate for the excess calories I've eaten. C. I have a regular habit of overeating during the night. It seems that my routine is not to be hungry in the morning but overeat in the evening. D. In my adult years, I have had week-long periods where I practically starve myself. This follows periods when I overeat. It seems I live a life of either feast or famine. Response Group 9: A (D. before. following meal plan since October. ) Group 10 A. I usually am able to stop eating when I want to. I know when enough is enough. B. Every so often, I experience a compulsion to eat which I can't seem to control. C. Frequently, I experience strong urges to eat which I seem unable to control, but at other times I can control my eating urges. D. I feel incapable of controlling urges to eat. I have a fear of not being able to stop eating voluntarily. Response Group 10: B Group 11 A. I don't have any problem stopping eating when I feel full. B. I usually can stop eating when I feel full but occasionally overeat leaving me feeling uncomfortably stuffed. C. I have a problem stopping eating once I start and usually I feel uncomfortably stuffed after I eat a meal. D. Because I have a problem not being able to stop eating when I want, I sometimes have to induce vomiting to relieve my stuffed feeling. Response Group 11: B Group 12 A. I seem to eat just as much when I'm with others, Family social gatherings as when I'm by myself. B. Sometimes, when I'm with other persons, I don't eat as much as I want to eat because I'm self-conscious about my eating. C. Frequently, I eat only a small amount of food when others are present, because I'm very embarrassed about my eating. D. I feel so ashamed about overeating that I pick times to overeat when I know no one will see me. I feel like a closet eater. Response Group 12: B Group 13 A. I eat three meals a day with only an occasional between meal snack. B. I eat 3 meals a day, but I also normally snack between meals. C. When I am snacking heavily, I get in the habit of skipping regular meals. D. There are regular periods when I seem to be continually eating, with no planned meals. Response Group 13: A (D before. Currently following meal plan. ) Group 14 A. I don't think much about trying to control unwanted eating urges. B. At least some of the time, I feel my thoughts are pre-occupied with trying to control my eating urges. C. I feel that frequently I spend much time thinking about how much I ate or about trying not to eat anymore. D. It seems to me that most of my waking hours are pre-occupied by thoughts about eating or not eating. I feel like I'm constantly struggling not to eat. Response Group 14: C Group 15 A. I don't think about food a great deal. B. I have strong craving for food but they last only for brief periods of time. C. I have days when I can't seem to think about anything else but food. D. Most of my days seem to be pre-occupied with thoughts about food. I feel like I live to eat. Response Group 15: B Group 16 A. I usually know whether or not I'm physically hungry. I take the right portion of food to satisfy me. B. Occasionally, I feel uncertain about knowing whether or not I'm physically hungry. A these times it's hard to know how much food I should take to satisfy me. C. Even though I might know how many calories I should eat, I don't have any idea what is a normal amount of food for me. Response Group 16: A (C before. ) Binge Eating Score: 16 Score less than 17 Minimal Risk Score between 18-26 Moderate Risk Score between 27-46 High Risk Assessment & Plan Assessment & Plan (1) Morbid obesity: Code(s): E66.01 - Morbid (severe) obesity due to excess calories (2) Adjustment disorder, unspecified: Code(s): F43.20 - Adjustment disorder, unspecified (3) Problems related to inappropriate diet and eating habits: Code(s): Z72.4 - Inappropriate diet and eating habits Plan The patient demonstrates positive engagement in the weight loss program and is showing signs of improved eating behaviors. She is cleared from a behavioral health standpoint for weight-loss surgery and will Follow-up with this provider in 1-2 weeks after surgery to monitor progress. Telehealth Telehealth Telehealth Platform: [facility] Location of provider rendering services: other Location of patient: address on file Patient Identification confirmed using: Name, : Yes Telehealth method: voice only Patient verbally consented to treatment: Yes Patient verbally consented to billing insurance company: Yes Patient informed of any privacy concerns related to visit: Yes Minutes spent on Phone/Video with Pt.: 60 Coding Level of Care Code Established Pt Tele Psytx >53 mins (02043) Patient Type Established Diagnoses Morbid obesity E66.01 Adjustment disorder, unspecified F43.20 Problems related to inappropriate diet and eating habits Z72.4 Additional Codes PHQ-9 - 15198 - PHQ-9 Billing: Yes ([id number]) Time Spent (min) 60
== END 2024-11-24 10:58 | disposition home or self-care (01) ==
LOC: HO.HBST 08:13
PROVIDERS: PCP Internal Medicine; Visit Provider Counselor Mental Health
DX: F43.20 Adjustment disorder, unspecified (principal); Z72.4 Inappropriate diet and eating habits; E66.01 Morbid (severe) obesity due to excess calories
CPT/HCPCS: 90837

== ENCOUNTER → 2024-12-15 10:54 | Outpatient (REF) | payer OTHER, SELFPAY ==
--- NOTE | 2024-12-15 10:57 | CA_ITS ---
Acquisition Time: 2024-12-15 11:14:34 Total Exercise Time: 00:05:15 Test Indications: Abnormal ECG,Pre-Op Evaluation Medications: LOSARTAN HCTZ IRON COLACE Protocol: KEVIN Max HR: 173 BPM 102% of Pred: 169 BPM Max BP: 148/88 mmHG Max Work Load: 4.6 METS Exercise Stress Test with exercise 5 mins 15 secs of Kevin Protocol, held at Stage 1, achieving 96% MPHR, with reports of SOB, no chest discomfort, with isolated PVCs, with normotensive response to exercise. With downsloping ST segment in the inferior leads and through V4-V6, meeting criteria for ischemia. In recovery, breathing returned to baseline. Gradual improvement in the STsegment during recovery. Echo images obtained with rest and post peak exercise. Definity contrast utilized. Test reviewed with Dr. Flores. Referred By: Nolan Strickland Electronically Signed By: Regulo Harvey
== END ==
LOC: HO.CARD 10:54
PROVIDERS: PCP Internal Medicine; Visit Provider Surgery
DX: R94.39 Abnormal result of other cardiovascular function study (principal); R94.31 Abnormal electrocardiogram [ECG] [EKG]
CPT/HCPCS: 93350; Q9957

== ENCOUNTER → 2024-12-15 10:57 | Outpatient (BNV) | payer OTHER, SELFPAY | PROVIDERS: PCP Internal Medicine | DX: R94.31 Abnormal electrocardiogram [ECG] [EKG] (principal); Z01.818 Encounter for other preprocedural examination; R06.02 Shortness of breath; I49.3 Ventricular premature depolarization | CPT/HCPCS: 93016; 93018; 93350; 93352 ==

== ENCOUNTER 2024-12-18 08:20 | Outpatient (REF) | payer OTHER, SELFPAY ==
--- NOTE | ~2024-12-18 | FL_ITS ---
EXAMINATION: XR FLUOROSCOPY UPPER GI SERIES CLINICAL INFORMATION: Morbid obesity due to axis, wrist. Presurgical evaluation. Patient has no complaints. COMPARISON: None TECHNIQUE: Fluoroscopic air contrast upper GI examination was performed utilizing standard techniques with thin and thick barium and effervescent granules. Numerous spot images were obtained. Several fluoroscopic image hold cine sequences were also obtained. This was followed by small bowel series using standard overhead radiographic techniques at specified intervals until contrast was seen in the right colon. Fluoroscopic spot radiographs were then obtained of the terminal ileum and any abnormal findings in the small bowel. FINDINGS: UPPER GI SERIES: Lateral cine images of the oropharynx and hypopharynx demonstrate normal swallow mechanism with normal epiglottic inversion and soft palate elevation. No tracheal penetration, glottic or subglottic aspiration identified. No nasopharyngeal reflux present. Hypopharyngeal structures appear normal without evidence of mass or diverticulum. There was no significant cricopharyngeal achalasia. Dual and single contrast images of the esophagus demonstrate normal caliber, contour, and mucosal pattern. No evidence of stricture, mass, or ulcerations identified. Esophageal peristalsis was normal. No evidence of hiatus hernia identified. No significant gastroesophageal reflux was seen during the course of the examination. Dual contrast and single contrast images of the stomach demonstrated normal contour and mucosal pattern. No ulcerations identified. A 10 mm filling defect in the lateral body of the stomach is present suspicious for a polyp or small mass. Contrast freely passed into the gastric antrum and duodenal bulb without delay. Single and air-contrast images of the duodenal bulb demonstrate a 10 mm filling defect, also suspicious for a polyp. The duodenal sweep has a normal appearance, course, and mucosal fold appearance. FLUOROSCOPY TIME: 2 minutes 45 seconds Number of Spot Images:11 Number of cines obtained: 12 DOSE AREA PRODUCT: 4095 uGy-m2 (microgray-meter squared) FL/FL upper GI w air IMPRESSION: 1. Oval 10 mm smooth mass in the lateral body of the stomach, likely a hyperplastic polyp. Other etiologies not excluded. 2. Similar 10 mm oval filling defect in the duodenal bulb also suspect for a polyp. 3. No significant GE reflux, hiatus hernia, or esophageal abnormality. 4. Recommend the above findings be evaluated with EGD. Electronically signed by: Adriano Chan MD 12/18/2024 09:22 QUIQUE BAL RP
--- OUTSIDE RECORDS SUMMARY | 2024-12-18 08:31 | XMS_ITS | Clinical Summary ---
Author Organization [facility] Address [address] [place] [address] Phone Care Team Providers Care Biomathematician Name Role Phone Alyson Mojica MD Primary Care Provider [phone] Allergies No known active allergies Medications losartan (COZAAR) 100 mg tablet Take 1 tablet (100 mg total) by mouth 1 (one) time each day. Take 1 Tablet by mouth daily. 90 tablet 2 09/23/20 24 Active hydroCHLOROthi azide (HYDRODIURIL) 25 mg tablet Take 1 tablet (25 mg total) by mouth 1 (one) time each day. 30 each 5 09/23/20 24 025 Active amLODIPine (NORVASC) 5 mg tablet Take 1 tablet (5 mg total) by mouth 1 (one) time each day. 30 each 5 10/19/20 24 025 Active polyethylene glycol (Golytely) 236-22.74-6.74 -5.86 gram solution Take 4L by mouth once for one dose. May substitue any PEG. Starting at 6PM the night before your procedure drink 1 8oz glasses at your own pace until you complete half of the gallon. Finish 2nd half of the gallon 5 hours before your procedure. 4000 mL 10/23/20 24 Active bisacodyL (DULCOLAX) 5 mg EC tablet Take 2 tablets by mouth right before beginning bowel prep. See instructions provided by the office 2 tablet 10/23/20 24 Active cyanocobalamin , vitamin B-12, 1,000 mcg tablet, sublingual PLACE 1 TABLET UNDER TONGUE AND ALLOW TO DISSOLVE FOR AT LEAST30 SECS BEFORE SWALLOWING ONCE DAILY 10/03/20 24 Active potassium chloride (KLOR-CON) 20 mEq packet Take 20 mEq by mouth 1 (one) time each day. 90 each 2 10/31/20 24 Active ferrous sulfate 324 mg (65 mg elemental iron) EC tablet Take 1 tablet (324 mg total) by mouth 1 (one) time each day with breakfast. 45 tablet 2 11/05/19 25 Active ferrous sulfate 325 mg (65 mg elemental iron) tablet TAKE 1 TABLET BY MOUTH EVERY DAY 90 tablet 1 11/11/19 25 Active docusate sodium (COLACE) 100 mg capsule TAKE 1 CAPSULE BY MOUTH TWICE A DAY 60 capsule 5 12/01/19 25 Active docusate sodium (COLACE) 100 mg capsule Take 1 Capsule by mouth 2 times daily. 025 Discontinued Active Problems Problem Noted Date Diagnosed Date Constipation 09/15/2024 Morbid obesity 09/15/2024 Primary hypertension 09/15/2024 Encounters Date Type Department Care Team Description 11/06/2024 9:55 AM EST Anesthesia Event Endoscopy [address] [place] [address] Jane Li MD 11/06/2024 9:17 AM EST - 11/06/2024 11:59 PM EST Hospital Encounter Endoscopy [address] [place] [address] Danyelle Bautista DO Special screening for malignant neoplasms, colon Discharge Disposition: Home or Self Care 10/19/2024 2:00 PM EST Office Visit Internal Medicine - [place] [address] [facility] [address] [place] [phone] Alyson Mojica MD Primary hypertension (Primary Dx) 09/23/2024 11:15 AM EST Office Visit Internal Medicine [facility] [address] [facility] [address] [place] [phone] Alyson Mojica MD Primary hypertension (Primary Dx); Anemia, unspecified type 09/22/2024 12:49 PM EST - 09/22/2024 11:59 PM EST Hospital Encounter Ultrasound [address] [place] [address] Discharge Disposition: Home or Self Care from Last 3 Months Surgical History Surgery Date Site/Laterality Comments SECTION N/A PROCEDURE: HISTORICAL DELIVERY TUBAL LIGATION PROCEDURE: HISTORICAL TUBAL LIGATION Medical History Medical History Date Comments HTN (hypertension) DX:HTN (hyper tension) Chronic constipation Morbid obesity (CMS/HCC) Family History Medical History Relation Name Comments Diabetes Brother Hypertension Mother Breast cancer Neg Hx Cervical cancer Neg Hx Colon cancer Neg Hx Prostate cancer Neg Hx Relation Name Status Comments Brother Father Mother Alive Social History Tobacco Use Types Packs/Day Years Used Date Smoking Tobacco: Never Smokeless Tobacco: Never Alcohol Use Standard Drinks/Week Comments Never 0 (1 standard drink = 0.6 oz pur e alcohol) Housing Instability Answer Date Recorde d Are you worried that in the next 2 months you may not have stable housing? Yes 10/19/2024 Food Access & Nutrition Answer Date Rec orded Do you have access to a vari ety of food including fruits and vegetables? Yes 10/19/2024 Health Literacy Answer Date Recorded How often do you need to hav e someone help you when you read instructions, pamphlets, or other written material from your doctor or pharmacy? Always 10/19/2024 Caregiver: How often do you need to have someone help you when you read instructions, pamphlets, or other written material from your doctor or pharmacy? Not on file 10/19/2024 Financial Risk Answer Date Recorded How hard is it for you to pa y for the very basics like food, housing, medical care, and air conditioning / heating? Unable to respond 10/19/2024 Transportation Answer Date Recorded Has the lack of transportati on kept you from meetings, work, or from getting things needed for daily living? Unable to respond 10/19/2024 Has the lack of transportati on kept you from medical appointments or from getting medications? No 10/19/2024 Social Isolation Answer Date Recorded How often do you feel lonely or isolated from th ose around you? Rarely 10/19/2024 Food Risk Answer Date Recorded Within the past 12 months we worried whether our food would run out before we got money to buy more. Never true 10/19/2024 Within the past 12 months th e food we bought just didn't last and we didn't have money to get more. Never true 10/19/2024 Dependent Care Answer Date Recorded Do you need help finding or paying for care for your loved ones. For example, children librarian or elderly care for an older adult? No 10/19/2024 Education Answer Date Recorded Do you think completing more education or training, like finishing a GED, going to college, or learning a trade, would be helpful for you? Yes 10/19/2024 Employment and Income Answer Date Recor ded During the last four weeks, have you been actively looking for work? Yes 10/19/2024 Living Situation Answer Date Recorded What is your living situation? 1 12/20/2023 Interpersonal Safety Answer Date Record ed Physical Abuse 11/06/2024 Verbal Abuse 11/06/2024 Comments No Sex and Gender Information Value Date Recorded Sex Assigned at Not on file Legal Sex Female 11:05 AM EDT Gender Identity Not on file Sexual Orientation Not on file Obstetrics History Para Term AB IAB SAB Ectopic Multiple Livin g Live Births 2 Last Filed Vital Signs Vital Sign Reading Time Taken Comments Blood Pressure 146/90 11/06/2024 10:33 AM EST Pulse 59 11/06/2024 10:33 AM EST Temperature 36.4 ??C (97.5 ??F) 11/06/2024 10:[address] Respiratory Rate 17 11/06/2024 10:33 AM EST Oxygen Saturation 99% 11/06/2024 10:33 AM EST Inhaled Oxygen Concentration - - Weight 150 kg (330 lb) 11/06/2024 9:50 AM EST Height 173.7 cm (5' 8.4 ) 11/06/2024 9:50 AM EST Body Mass Index 49.59 11/06/2024 9:50 AM EST Plan of Treatment Health Maintenance Due Date Last Done Comments DTaP,Tdap,and Td Vaccines (1 - Tdap) 1980 Hepatitis B Vaccines (1 of 3 - 19+ 3-dose series) 1992 Pneumococcal Vaccine: 50+ Years (1 of 1 - PCV) 2023 Zoster Vaccines (1 of 2) 2023 HIV Screening 06/05/2024 Hepatitis C Screening 06/05/2024 COVID-19 Vaccine (1 - 2023-2 5 season) 2024 Influenza Vaccine (#1) 2024 Depression Screening 10/19/2025 10/19/2024 Hypertension/CHF/CAD Annual BMP Blood Test 10/19/2025 10/19/2024, 05/26/2024 Social Influencers of Health Screening 10/19/2025 10/19/2024 Breast Cancer Screening 09/15/2026 09/15/20 24, 09/03/2024, 09/02/2024 Colorectal Cancer Screening: Colonoscopy 11/06/2027 11/06/2024 Cholesterol Screening (Lipid Panel) 05/26/2029 05/26/2024 Cervical Cancer Screening: HPV 08/17/2029 08/17/2024 HIB Vaccines Aged Out No longer eligi ble based on patient's age to complete this topic HPV Vaccines Aged Out No longer eligi ble based on patient's age to complete this topic Hepatitis A Vaccines Aged Out No long er eligible based on patient's age to complete this topic IPV Vaccines Aged Out No longer eligi ble based on patient's age to complete this topic MMR Vaccines Aged Out No longer eligi ble based on patient's age to complete this topic Meningococcal ACWY Vaccine Aged Out N o longer eligible based on patient's age to complete this topic Meningococcal B Vacine Aged Out No lo nger eligible based on patient's age to complete this topic Pneumococcal Vaccine: Pediatrics (0 to 5 Years) and At-Risk Patients (6 to 64 Years) Aged Out No longer eligible b ased on patient's age to complete this topic RSV Immunization Patients Under 20 months Aged Out No longer eligible b ased on patient's age to complete this topic Varicella Vaccines Aged Out No longer eligible based on patient's age to complete this topic Procedures Procedure Name Priority Date/Time Associated Diagnosis Comments COLONOSCOPY Routine 11/06/2024 10:12 AM EST Special screening for malignant neoplasms, colon TISSUE EXAM Routine 11/06/2024 10:09 AM EST Special screening for malignant neoplasms, colon CBC WITH AUTO DIFFERENTIAL Routine 10/19/2024 2:12 PM EST Primary hypertension Anemia, unspecified type BASIC METABOLIC PANEL Routine 10/19/2024 2:12 PM EST Primary hypertension Anemia, unspecified type FERRITIN Routine 10/19/2024 2:12 PM EST Primary hypertension Anemia, unspecified type IRON AND TIBC Routine 10/19/2024 2:12 PM EST Primary hypertension Anemia, unspecified type CBC AND DIFFERENTIAL Routine 10/19/2024 2:12 PM EST Primary hypertension Anemia, unspecified type EXTERNAL CLINICAL LAB 09/30/2024 US BREAST LIMITED RIGHT Routine 09/22/2024 1:40 PM EST Masses of both breasts MG MAMMO DIAGNOSTIC ADDL VIEWS RIGHT Routine 09/15/2024 3:48 PM EST Masses of both breasts HM HPV Routine 08/17/2024 LIPID PANEL Routine 05/26/2024 from Last 3 Months or Most Recently Relevant to Health Maintenance Results * COLONOSCOPY Anesthesia - MAC; [facility] [email or web address]] ENDOSCOPY (11/06/2024 10:12 AM EST) Anatomical Region Laterality Modality Endoscopy 11/06/2024 10:1 4 AM EST Impressions 11/06/2024 10:17 AM EST - Hemorrhoids found on perianal exam. ? - One 12 mm polyp in the sigmoid colon, removed with a ? hot snare. Resected and retrieved. ? - The examination was otherwise normal on direct and ? retroflexion views. Recommendation: ?- - Discharge patient to home. ? - High fiber diet. ? - Continue present medications. ? - Await pathology results. ? - Repeat colonoscopy for surveillance based on ? pathology results. Narrative 11/06/2024 10:17 AM EST GI Patient Name: Rupinder Rico Procedure Date: 11/06/2024 10:14 AM Date of : 1975 Age: 49 Gender: Female Note Status: Finalized Attending MD: Danyelle Bautista DO, [id number] Procedure Date No Time: 11/06/2024 Procedure: ? Colonoscopy Indications: ? Screening for colorectal malignant neoplasm Providers: ? Danyelle Bautista DO Referring MD: ?Alyson Mojica MD Medicines: ? Monitored Anesthesia Care Complications: ? No immediate complications. Estimated blood loss: ? Minimal. Estimated Blood Loss: ? Estimated blood loss was minimal. Procedure: ? Pre-Anesthesia Assessment: ? - - Prior to the procedure, a History and Physical was ? performed, and patient medications and allergies were ? reviewed. The patient is competent. The risks and ? benefits of the procedure and the sedation options and ? risks were discussed with the patient. All questions ? were answered and informed consent was obtained. ? Patient identification and proposed procedure were ? verified by the physician, the nurse, the ? anesthesiologist, the media assistant and the radiochemical technician ? in the pre-procedure area in the endoscopy suite. ? Mental Status Examination: alert and oriented. Airway ? Examination: normal oropharyngeal airway and neck ? mobility. Respiratory Examination: clear to ? auscultation. CV Examination: normal. Prophylactic ? Antibiotics: The patient does not require prophylactic ? antibiotics. Prior Anticoagulants: The patient has ? taken no anticoagulant or antiplatelet agents. ASA ? Grade Assessment: II - A patient with severe systemic ? disease. After reviewing the risks and benefits, the ? patient was deemed in satisfactory condition to ? undergo the procedure. The anesthesia plan was to use ? monitored anesthesia care (MAC). Immediately prior to ? administration of medications, the patient was ? re-assessed for adequacy to receive sedatives. The ? heart rate, respiratory rate, oxygen saturations, ? blood pressure, adequacy of pulmonary ventilation, and ? response to care were monitored throughout the ? procedure. The physical status of the patient was ? re-assessed after the procedure. ? After I obtained informed consent, the scope was ? passed under direct vision. Throughout the procedure, ? the patient's blood pressure, pulse, and oxygen ? saturations were monitored continuously. The ? Colonoscope was introduced through the anus and ? advanced to the cecum, identified by appendiceal ? orifice and ileocecal valve. The colonoscopy was ? performed without difficulty. The patient tolerated ? the procedure well. The quality of the bowel ? preparation was good. Findings: ?Hemorrhoids were found on perianal exam. ? A 12 mm polyp was found in the sigmoid colon. The ? polyp was semi-pedunculated. The polyp was removed ? with a hot snare. Resection and retrieval were ? complete. Estimated blood loss was minimal. ? The exam was otherwise without abnormality on direct ? and retroflexion views. Procedure Code(s): ? --- Professional --- ? 20935, Colonoscopy, flexible; with removal of ? tumor(s), polyp(s), or other lesion(s) by snare ? technique Diagnosis Code(s): ? --- Professional --- ? D12.5, Benign neoplasm of sigmoid colon ? K64.9, Unspecified hemorrhoids ? Z12.11, Encounter for screening for malignant neoplasm ? of colon CPT copyright 2020 [employer]. All rights reserved. The codes documented in this report are preliminary and upon board certified family physician review may be revised to meet current compliance requirements. DANYELLE Bautista DO 11/06/2024 10:16:58 AM This report has been signed electronically.Danyelle Bautista DO Number of Addenda: 0 Note Initiated On: 11/06/2024 10:14 AM ? Endoscopy Department at - [address] [place] [address], ? [place] [address] Procedure Note Danyelle Bautista DO - 11/06/2024 GI Patient Name: Rupinder Rico Procedure Date: 11/06/2024 10:14 AM Date of : 1975 Age: 49 Gender: Female Note Status: Finalized Attending MD: Danyelle Bautista DO, [id number] Procedure Date No Time: 11/06/2024 Procedure: Colonoscopy Indications: Screening for colorectal malignant neoplasm Providers: Danyelle Bautista DO Referring MD: Alyson Mojica MD Medicines: Monitored Anesthesia Care Complications: No immediate complications. Estimated blood loss: Minimal. Estimated Blood Loss: Estimated blood loss was minimal. Procedure: Pre-Anesthesia Assessment: - - Prior to the procedure, a History and Physicalwas performed, and patient medications and allergieswere reviewed. The patient is competent. The risks and benefits of the procedure and the sedation optionsand risks were discussed with the patient. Allquestions were answered and informed consent was obtained. Patient identification and proposed procedure were verified by the physician, the nurse, the anesthesiologist, the media assistant and thetechnician in the pre-procedure area in the endoscopy suite. Mental Status Examination: alert and oriented.Airway Examination: normal oropharyngeal airway and neck mobility. Respiratory Examination: clear to auscultation. CV Examination: normal. Prophylactic Antibiotics: The patient does not requireprophylactic antibiotics. Prior Anticoagulants: The patient has taken no anticoagulant or antiplatelet agents. ASA Grade Assessment: II - A patient with severesystemic disease. After reviewing the risks and benefits,the patient was deemed in satisfactory condition to undergo the procedure. The anesthesia plan was touse monitored anesthesia care (MAC). Immediately priorto administration of medications, the patient was re-assessed for adequacy to receive sedatives. The heart rate, respiratory rate, oxygen saturations, blood pressure, adequacy of pulmonary ventilation,and response to care were monitored throughout the procedure. The physical status of the patient was re-assessed after the procedure. After I obtained informed consent, the scope was passed under direct vision. Throughout theprocedure, the patient's blood pressure, pulse, and oxygen saturations were monitored continuously. The Colonoscope was introduced through the anus and advanced to the cecum, identified by appendiceal orifice and ileocecal valve. The colonoscopy was performed without difficulty. The patient tolerated the procedure well. The quality of the bowel preparation was good. Findings: Hemorrhoids were found on perianal exam. A 12 mm polyp was found in the sigmoid colon. The polyp was semi-pedunculated. The polyp was removed with a hot snare. Resection and retrieval were complete. Estimated blood loss was minimal. The exam was otherwise without abnormality ondirect and retroflexion views. Procedure Code(s): --- Professional --- 42552, Colonoscopy, flexible; with removal of tumor(s), polyp(s), or other lesion(s) by snare technique Diagnosis Code(s): --- Professional --- D12.5, Benign neoplasm of sigmoid colon K64.9, Unspecified hemorrhoids Z12.11, Encounter for screening for malignantneoplasm of colon CPT copyright 2020 [employer]. All rights reserved. The codes documented in this report are preliminary and upon board certified family physician reviewmay be revised to meet current compliance requirements. DANYELLE Bautista DO 11/06/2024 10:16:58 AM This report has been signed electronically.Danyelle Bautista DO Number of Addenda: 0 Note Initiated On: 11/06/2024 10:14 AM Endoscopy Department at - [address] [place] [phone] IMPRESSION: - Hemorrhoids found on perianal exam. - One 12 mm polyp in the sigmoid colon, removedwith a hot snare. Resected and retrieved. - The examination was otherwise normal on directand retroflexion views. Recommendation: - - Discharge patient to home. - High fiber diet. - Continue present medications. - Await pathology results. - Repeat colonoscopy for surveillance based on pathology results. us Danyelle Bautista DO GI~PROCEDURE ORDERABLES Final Re sult * Tissue exam (11/06/2024 10:09 AM EST) Final Diagnosis Sigmoid Colon, polyp x 1: Tubular adenoma, fragmented. 11/09/2024 11:09 AM [facility] Gross Description A. Large Intestine, Sigmoid Colon, polyp x 1: Labeled sig colon polyp x 1 . Received in formalin, are multiple irregular soft, lerma-pink tissue fragments, approximately ranging from less than 0.1 cm to 0.5 cm in greatest diameters, admixed with fecal/food debris, and aggregating to 1.4 x 0.7 x 0.2 cm. The specimen is wrapped in paper and submitted in toto in one cassette, multiple pieces, multiple levels. Please note: Small tissue fragments may not survive processing. dvb/DG 11/09/2024 11:09 AM [facility] Disclaimer Unless otherwise specified, all tissue is 10% NB formalin fixed and paraffin embedded. 11/09/2024 11:09 AM [facility] Tissue Sigmoid colon structure / Unknown 11/06/2024 10:09 AM EST 11/06/2024 11:57 AM EST D[facility]elle [facility] PATHOLOGY ORDERABLES Final R esult [facility] [address] [place] [address], * (ABNORMAL) CBC auto differential (10/19/2024 2:12 PM EST) WBC 6.0 4.8 - 10.8 K/mcL LAB HEMETOLOGY METHOD 10/19/2024 6:35 PM [facility] RBC 4.60 3.80 - 4.80 M/mcL LAB HEMETOLOGY METHOD 10/19/2024 6:35 PM [facility] Hemoglobin 12.4 11.5 - 16.0 g/dL LAB HEMETOLOGY METHOD 10/19/2024 6:35 PM [facility] Hematocrit 38.3 35.0 - 47.0 % LAB HEMETOLOGY METHOD 10/19/2024 6:35 PM [facility] MCV 84.2 79.0 - 98.0 FL LAB HEMETOLOGY METHOD 10/19/2024 6:35 PM [facility] MCH 27.3 27.0 - 32.0 pcg LAB HEMETOLOGY METHOD 10/19/2024 6:35 PM [facility] MCHC 32.4 32.0 - 37.0 g/dL LAB HEMETOLOGY METHOD 10/19/2024 6:35 PM [facility] RDW 14.6 11.0 - 15.0 % LAB HEMETOLOGY METHOD 10/19/2024 6:35 PM [facility] Platelets 182 130 - 400 K/mcL LAB HEMETOLOGY METHOD 10/19/2024 6:35 PM [facility] MPV 11.9(H) 7.0 - 11.0 FL LAB HEMETOLOGY METHOD 10/19/2024 6:35 PM [facility] NRBC 0.0 <1.0 % LAB HEMETOLOGY METHOD 10/19/2024 6:35 PM [facility] NRBC Absolute 0.00 <0.10 K/mcL LAB HEMETOLOGY METHOD 10/19/2024 6:35 PM [facility] Neutrophils Relative 54.3 % LAB HEMETOLOGY METHOD 10/19/2024 6:35 PM [facility] Lymphocytes Relative 32.8 % LAB HEMETOLOGY METHOD 10/19/2024 6:35 PM [facility] Monocytes Relative 10.0 % LAB HEMETOLOGY METHOD 10/19/2024 6:35 PM EST [facility] Eosinophils Relative 2.0 % LAB HEMETOLOGY METHOD 10/19/2024 6:35 PM [facility] Basophils Relative 0.7 % LAB HEMETOLOGY METHOD 10/19/2024 6:35 PM [facility] Immature Granulocytes Relative 0.2 % LAB HEMETOLOGY METHOD 10/19/2024 6:35 PM [facility] Neutrophils Absolute 3.25 1.50 - 7.00 K/mcL LAB HEMETOLOGY METHOD 10/19/2024 6:35 PM [facility] Lymphocytes Absolute 1.96 1.00 - 5.00 K/mcL LAB HEMETOLOGY METHOD 10/19/2024 6:35 PM [facility] Monocytes Absolute 0.60 0.20 - 1.00 K/mcL LAB HEMETOLOGY METHOD 10/19/2024 6:35 PM [facility] Eosinophils Absolute 0.12 0.00 - 0.50 K/mcL LAB HEMETOLOGY METHOD 10/19/2024 6:35 PM [facility] Basophils Absolute 0.04 0.00 - 0.20 K/mcL LAB HEMETOLOGY METHOD 10/19/2024 6:35 PM [facility] Immature Granulocytes Absolute 0.01 0.00 - 0.03 K/mcL LAB HEMETOLOGY METHOD 10/19/2024 6:35 PM [facility] Blood Venous blood specimen / Unknown Venipuncture / Unknown 10/19/2024 2:12 PM EST 10/19/2024 2:12 PM EST us Alyson Mojica MD LAB BLOOD ORDERABLES Final Res ult [facility] [address] [place] [address], * Iron and TIBC (10/19/2024 2:12 PM EST) Pathologist [facility] Iron 80 40 - 150 mcg/dL LAB CHEMISTRY METHOD 10/19/2024 8:47 PM EST [facility] TIBC 317 250 - 450 mcg/dL LAB CHEMISTRY METHOD 10/19/2024 8:47 PM [facility] Iron Saturation 25 15 - 50 % LAB CHEMISTRY METHOD 10/19/2024 8:47 PM EST [facility] Blood Venous blood specimen / Unknown Venipuncture / Unknown 10/19/2024 2:12 PM EST 10/19/2024 2:12 PM EST us Alyson Mojica MD LAB BLOOD ORDERABLES Final Res ult Performing Organization Address [facility]/ZIP Co de Phone Number [facility] [address] [place] [address], [place] [phone] * Ferritin (10/19/2024 2:12 PM EST) [facility] Ferritin 19 8 - 252 ng/mL LAB CHEMISTRY METHOD 10/19/2024 8:47 PM EST [facility] Blood Venous blood specimen / Unknown Venipuncture / Unknown 10/19/2024 2:12 PM EST 10/19/2024 2:12 PM EST us Alyson Mojica MD LAB BLOOD ORDERABLES Final Res ult [facility] [address] [place] [address], [place] [phone] * (ABNORMAL) Basic metabolic panel (10/19/2024 2:12 PM EST) [facility] Sodium 141 133 - 145 mmol/L LAB CHEMISTRY METHOD 10/19/2024 8:47 PM [facility] Potassium 3.4(L) 3.5 - 5.5 mmol/L LAB CHEMISTRY METHOD 10/19/2024 8:47 PM [facility] Chloride 107 96 - 110 mmol/L LAB CHEMISTRY METHOD 10/19/2024 8:47 PM [facility] LAB CO2 28 21 - 32 mmol/L LAB CHEMISTRY METHOD 10/19/2024 8:47 PM [facility] LAB Anion Gap 6 3 - 11 LAB CHEMISTRY METHOD 10/19/2024 8:47 PM [facility] LAB Glucose 103(H) 70 - 100 mg/dL LAB CHEMISTRY METHOD 10/19/2024 8:47 PM [facility] LAB BUN 17 5 - 25 mg/dL LAB CHEMISTRY METHOD 10/19/2024 8:47 PM [facility] LAB Creatinine 1.05 0.50 - 1.10 mg/dL LAB CHEMISTRY METHOD 10/19/2024 8:47 PM [facility] LAB eGFR 64 >=60 mL/min/1. 73m2 LAB CHEMISTRY METHOD 10/19/2024 8:47 PM [facility] LAB Comment:Calculation based on the??Chronic Kidney Disease Epidemiology Collaboration (CKD-EPI) equation refit??without adjustment for race. BUN/Creatinine Ratio 16.2 LAB CHEMISTRY METHOD 10/19/2024 8:47 PM [facility] LAB Calcium 9.6 8.5 - 10.5 mg/dL LAB CHEMISTRY METHOD 10/19/2024 8:47 PM [facility] LAB Blood Venous blood specimen / Unknown Venipuncture / Unknown 10/19/2024 2:12 PM EST 10/19/2024 2:12 PM EST us Alyson Mojica MD LAB BLOOD ORDERABLES Final Res ult [facility] [address] [place] [address], [place] [phone] * External clinical lab (09/30/2024) us Provider [facility] LAB BLOOD ORDERABLES [facility] al Result * US Breast Limited Right (09/22/2024 1:40 PM EST) Anatomical Region Laterality Modality Breast Right Ultrasound 09/22/2024 1:58 PM EST Impressions 09/22/2024 2:10 PM EST Multiple similar appearing bilateral breast masses noted at mammography, age indeterminate without previous exams. Those with sonographic correlates are shown to be solid. The multiplicity and bilaterality of the lesions suggest a benign process, possibly multiple fibroadenomas. A follow-up bilateral diagnostic mammogram is recommended in 6 months, with decision regarding need for additional ultrasound to be made at that time. ? BI-RADS CATEGORY: Mammography: 3 - PROBABLY BENIGN Ultrasound: 3 - PROBABLY BENIGN RECOMMENDATIONS: Short Interval Follow-up is recommended for bilateral breasts in 6 months. Short Interval Follow-up is recommended for bilateral breasts in 6 months. Mammo Location: Mammogram performed at [facility] [place] [address] -------- FINAL REPORT -------- Dictated By: Jacqueline Ruggiero Dictated Date: 09/22/2024 13:58 ET Assigned Physician: Jacqueline Ruggiero Reviewed and Electronically Signed By: Jacqueline Ruggiero Signed Date: 09/22/2024 14:10 ET Workstation ID: [id number] Transcribed By: Self Edit Transcribed Date: 09/22/2024 13:58 ET Narrative 09/22/2024 2:10 PM EST HISTORY: 49-year-old woman with abnormal bilateral baseline mammogram. The patient returns for supplemental imaging. COMPARISON: Baseline screening mammogram 09/02/24 ?? MAMMOGRAPHY TECHNIQUE: CC and MLO spot compression tomosynthesis views of the right breast and targeted bilateral breast ultrasound were performed. BREAST DENSITY: B - There are scattered areas of fibroglandular density. FINDINGS: The additional views suggest 3 dominant masses in the right breast, including a 16 mm oval mass at 8:00, close to the skin line, approximately 10 cm from the nipple, a 20 mm mass at 12:00, 10 to 11 cm from the nipple, and a 19 mm round mass at 3-4:00, 9 cm from the nipple. No associated microcalcifications are seen. ULTRASOUND Right breast: 4 solid masses are identified: 1: A circumscribed 5 x 3 x 5 mm solid nodule with parallel orientation at 8:00, 10 cm from the nipple. There is no internal vascularity by Doppler analysis. No sonographic finding is seen to correspond to the larger abnormality in this area visible mammographically. 2: A 6 x 9 x 4 mm solid mass with lobulated margins at 12:00, 10 to 11 cm from the nipple. This lesion contains a coarse, eccentric calcification on the mammogram and most likely represents a fibroadenoma. 3: A 6 x 18 x 18 mm solid mass with macrolobulated margins and parallel orientation at 1:00, 10 to 11 cm from the nipple, accounting for the mammographic finding in this location. 4: A 15 x 13 x 6 mm circumscribed solid mass with macrolobulated margins at 3- 4:00, 9 cm from the nipple, also account for the mammographic finding in this location. Left breast: An 8 x 8 x 11 mm solid mass with macrolobulated margins is confirmed at 8:00, 13 cm from the nipple, felt to account for the mammographic finding this location. There is no sonographic correlate for the lesion in the lateral breast. Procedure Note Jacqueline Ruggiero MD - 09/22/2024 HISTORY: 49-year-old woman with abnormal bilateral baseline mammogram. Thepatient returns for supplemental imaging. COMPARISON: Baseline screening mammogram 09/02/24 MAMMOGRAPHY TECHNIQUE: CC and MLO spot compression tomosynthesis views of the rightbreast and targeted bilateral breast ultrasound were performed. BREAST DENSITY: B - There are scattered areas of fibroglandular density. FINDINGS: The additional views suggest 3 dominant masses in the right breast,including a 16 mm oval mass at 8:00, close to the skin line, [id number] cm from the nipple, a 20 mm mass at 12:00, 10 to 11 cm from the nipple,and a 19 mm round mass at 3-4:00, 9 cm from the nipple. No associatedmicrocalcifications are seen. ULTRASOUND Right breast: 4 solid masses are identified: 1: A circumscribed 5 x 3 x 5 mm solid nodule with parallel orientation at8:00, 10 cm from the nipple. There is no internal vascularity by Doppleranalysis. No sonographic finding is seen to correspond to the largerabnormality in this area visible mammographically. 2: A 6 x 9 x 4 mm solid mass with lobulated margins at 12:00, 10 to 11 cmfrom the nipple. This lesion contains a coarse, eccentric calcification onthe mammogram and most likely represents a fibroadenoma. 3: A 6 x 18 x 18 mm solid mass with macrolobulated margins and parallelorientation at 1:00, 10 to 11 cm from the nipple, accounting for themammographic finding in this location. 4: A 15 x 13 x 6 mm circumscribed solid mass with macrolobulated marginsat 3- 4:00, 9 cm from the nipple, also account for the mammographic findingin this location. Left breast: An 8 x 8 x 11 mm solid mass with macrolobulated margins is confirmed at8:00, 13 cm from the nipple, felt to account for the mammographic findingthis location. There is no sonographic correlate for the lesion in the lateral breast. IMPRESSION: Multiple similar appearing bilateral breast masses noted at mammography,age indeterminate without previous exams. Those with sonographiccorrelates are shown to be solid. The multiplicity and bilaterality of thelesions suggest a benign process, possibly multiple fibroadenomas. A follow-up bilateral diagnostic mammogram is recommended in 6 months,with decision regarding need for additional ultrasound to be made at thattime. BI-RADS CATEGORY: Mammography: 3 - PROBABLY BENIGN Ultrasound: 3 - PROBABLY BENIGN RECOMMENDATIONS: Short Interval Follow-up is recommended for bilateral breasts in 6 months.Short Interval Follow-up is recommended for bilateral breasts in 6months. Mammo Location: Mammogram performed at [facility] [place] [address] -------- FINAL REPORT -------- Dictated By: Jacqueline Ruggiero Dictated Date: 09/22/2024 13:58 ET Assigned Physician: Jacqueline Ruggiero Reviewed and Electronically Signed By: Jacqueline Ruggiero Signed Date: 09/22/2024 14:10 ET Workstation ID: [id number] Transcribed By: Self Edit Transcribed Date: 09/22/2024 13:58 ET us Eden Vasquez CNM IMG US PROCEDURES Final Result * MG Mammo Diagnostic Addl Views Right (09/15/2024 3:48 PM EST) Anatomical Region Laterality Modality Breast Right Mammography 09/22/2024 1:58 PM EST Impressions 09/22/2024 2:10 PM EST Multiple similar appearing bilateral breast masses noted at mammography, age indeterminate without previous exams. Those with sonographic correlates are shown to be solid. The multiplicity and bilaterality of the lesions suggest a benign process, possibly multiple fibroadenomas. A follow-up bilateral diagnostic mammogram is recommended in 6 months, with decision regarding need for additional ultrasound to be made at that time. ? BI-RADS CATEGORY: Mammography: 3 - PROBABLY BENIGN Ultrasound: 3 - PROBABLY BENIGN RECOMMENDATIONS: Short Interval Follow-up is recommended for bilateral breasts in 6 months. Short Interval Follow-up is recommended for bilateral breasts in 6 months. Mammo Location: Mammogram performed at [facility] [place] [address] -------- FINAL REPORT -------- Dictated By: Jacqueline Ruggiero Dictated Date: 09/22/2024 13:58 ET Assigned Physician: Jacqueline Ruggiero Reviewed and Electronically Signed By: Jacqueline Ruggiero Signed Date: 09/22/2024 14:10 ET Workstation ID: [id number] Transcribed By: Self Edit Transcribed Date: 09/22/2024 13:58 ET Narrative 09/22/2024 2:10 PM EST HISTORY: 49-year-old woman with abnormal bilateral baseline mammogram. The patient returns for supplemental imaging. COMPARISON: Baseline screening mammogram 09/02/24 ?? MAMMOGRAPHY TECHNIQUE: CC and MLO spot compression tomosynthesis views of the right breast and targeted bilateral breast ultrasound were performed. BREAST DENSITY: B - There are scattered areas of fibroglandular density. FINDINGS: The additional views suggest 3 dominant masses in the right breast, including a 16 mm oval mass at 8:00, close to the skin line, approximately 10 cm from the nipple, a 20 mm mass at 12:00, 10 to 11 cm from the nipple, and a 19 mm round mass at 3-4:00, 9 cm from the nipple. No associated microcalcifications are seen. ULTRASOUND Right breast: 4 solid masses are identified: 1: A circumscribed 5 x 3 x 5 mm solid nodule with parallel orientation at 8:00, 10 cm from the nipple. There is no internal vascularity by Doppler analysis. No sonographic finding is seen to correspond to the larger abnormality in this area visible mammographically. 2: A 6 x 9 x 4 mm solid mass with lobulated margins at 12:00, 10 to 11 cm from the nipple. This lesion contains a coarse, eccentric calcification on the mammogram and most likely represents a fibroadenoma. 3: A 6 x 18 x 18 mm solid mass with macrolobulated margins and parallel orientation at 1:00, 10 to 11 cm from the nipple, accounting for the mammographic finding in this location. 4: A 15 x 13 x 6 mm circumscribed solid mass with macrolobulated margins at 3- 4:00, 9 cm from the nipple, also account for the mammographic finding in this location. Left breast: An 8 x 8 x 11 mm solid mass with macrolobulated margins is confirmed at 8:00, 13 cm from the nipple, felt to account for the mammographic finding this location. There is no sonographic correlate for the lesion in the lateral breast. Procedure Note Jacqueline Ruggiero MD - 09/22/2024 HISTORY: 49-year-old woman with abnormal bilateral baseline mammogram. Thepatient returns for supplemental imaging. COMPARISON: Baseline screening mammogram 09/02/24 MAMMOGRAPHY TECHNIQUE: CC and MLO spot compression tomosynthesis views of the rightbreast and targeted bilateral breast ultrasound were performed. BREAST DENSITY: B - There are scattered areas of fibroglandular density. FINDINGS: The additional views suggest 3 dominant masses in the right breast,including a 16 mm oval mass at 8:00, close to the skin line, [id number] cm from the nipple, a 20 mm mass at 12:00, 10 to 11 cm from the nipple,and a 19 mm round mass at 3-4:00, 9 cm from the nipple. No associatedmicrocalcifications are seen. ULTRASOUND Right breast: 4 solid masses are identified: 1: A circumscribed 5 x 3 x 5 mm solid nodule with parallel orientation at8:00, 10 cm from the nipple. There is no internal vascularity by Doppleranalysis. No sonographic finding is seen to correspond to the largerabnormality in this area visible mammographically. 2: A 6 x 9 x 4 mm solid mass with lobulated margins at 12:00, 10 to 11 cmfrom the nipple. This lesion contains a coarse, eccentric calcification onthe mammogram and most likely represents a fibroadenoma. 3: A 6 x 18 x 18 mm solid mass with macrolobulated margins and parallelorientation at 1:00, 10 to 11 cm from the nipple, accounting for themammographic finding in this location. 4: A 15 x 13 x 6 mm circumscribed solid mass with macrolobulated marginsat 3- 4:00, 9 cm from the nipple, also account for the mammographic findingin this location. Left breast: An 8 x 8 x 11 mm solid mass with macrolobulated margins is confirmed at8:00, 13 cm from the nipple, felt to account for the mammographic findingthis location. There is no sonographic correlate for the lesion in the lateral breast. IMPRESSION: Multiple similar appearing bilateral breast masses noted at mammography,age indeterminate without previous exams. Those with sonographiccorrelates are shown to be solid. The multiplicity and bilaterality of thelesions suggest a benign process, possibly multiple fibroadenomas. A follow-up bilateral diagnostic mammogram is recommended in 6 months,with decision regarding need for additional ultrasound to be made at thattime. BI-RADS CATEGORY: Mammography: 3 - PROBABLY BENIGN Ultrasound: 3 - PROBABLY BENIGN RECOMMENDATIONS: Short Interval Follow-up is recommended for bilateral breasts in 6 months.Short Interval Follow-up is recommended for bilateral breasts in 6months. Mammo Location: Mammogram performed at [facility] [place] [address] -------- FINAL REPORT -------- Dictated By: Jacqueline Ruggiero Dictated Date: 09/22/2024 13:58 ET Assigned Physician: Jacqueline Ruggiero Reviewed and Electronically Signed By: Jacqueline Ruggiero Signed Date: 09/22/2024 14:10 ET Workstation ID: [id number] Transcribed By: Self Edit Transcribed Date: 09/22/2024 13:58 ET Eden Vasquez CNM IMG BI PROCEDURES Final Result * Cervical Cancer Screening: HPV (08/17/2024) Cervical Cancer Screening: HPV normal, abstracted Historical Provider HEALTH MAINTENANCE Final Result * (ABNORMAL) Lipid panel (05/26/2024) LDL/HDL Ratio 4 0 - 4 Triglycerides 118 0 - 150 mg/dL Cholesterol 243(A) 0 - 200 mg/dL HDL 66 >=40 mg/dL LDL Cholesterol 154(A) 0 - 100 mg/dL Blood Venous blood specimen / Unknown Historical Provider LAB BLOOD ORDERABLES Janette l Result from Last 3 Months or Most Recently Relevant to Health Maintenance [place] [address] [address] [employer] Care Teams Biomathematician Relationship Specialty Start Date End Date Alyson Mojica MD [address] [place] [phone] PCP - General 05/21/24
== END 2024-12-18 08:21 | disposition home or self-care (01) ==
LOC: HO.XRAY 08:20
PROVIDERS: PCP Internal Medicine; Visit Provider Surgery
DX: E66.01 Morbid (severe) obesity due to excess calories (principal); I10 Essential (primary) hypertension
CPT/HCPCS: 74246

== ENCOUNTER → 2024-12-18 08:22 | Outpatient (BNV) | payer OTHER, SELFPAY | PROVIDERS: PCP Internal Medicine; Visit Provider Radiology Diagnostic Radiology | DX: E66.01 Morbid (severe) obesity due to excess calories (principal) | CPT/HCPCS: 74246; 74248 ==

== ENCOUNTER 2025-01-01 12:42 | Outpatient (AMB) | payer OTHER, SELFPAY ==
--- NOTE | 2025-01-01 12:40 | A.OFFVIS_ITS ---
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: [employer] Present Information Interpreted: clinical only Allergies No Known Allergies Allergy (Verified 01/01/25 12:51) Medication List - Last Reconciled 01/01/25 by Nolan Strickland MD cyanocobalamin (vitamin B-12) 1,000 mcg sublingual DAILY docusate sodium 100 mg PO BID ferrous sulfate 325 mg PO DAILY hydrochlorothiazide 12.5 mg PO DAILY losartan 100 mg PO DAILY ondansetron 4 mg PO Q12H pantoprazole 40 mg PO DAILY polyethylene glycol 3350 17 grams PO DAILY potassium chloride 20 mEq PO DAILY sucralfate 10 mL PO BID HPI HPI TV 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 Exercise: is stationary bike x4 days per week for 300 calories [facility] Medical History (Updated 11/14/24 @ 10:58 by Nolan Strickland MD) Hypertension Morbid obesity Surgical History (Updated 09/03/24 @ 15:05 by Erlinda Feng CMA) Hx of section Family History (Updated 09/03/24 @ 15:06 by Erlinda Feng CMA) Mother No problems noted. Father No problems noted. Daughter No problems noted. Daughter No problems noted. Son No problems noted. Social History (Updated 09/03/24 @ 15:06 by Erlinda Feng CMA) Alcohol intake: never Patient Tobacco Use Status: Never used Tobacco Telehealth Telehealth Telehealth Platform: Telephone Location of provider rendering services: practice address Location of patient: address on file Patient Identification confirmed using: Name, : Yes Telehealth method: voice only Patient verbally consented to treatment: Yes Patient verbally consented to billing insurance company: Yes Patient informed of any privacy concerns related to visit: Yes Minutes spent on Phone/Video with Pt.: 30 Assessment & Plan Assessment & Plan (1) Morbid obesity: Code(s): E66.01 - Morbid (severe) obesity due to excess calories Category: Medical Plan: 1. Plan for lap sleeve gastrectomy including upper GI endoscopy. All tests has been completed and reviewed and the patient is cleared for the surgery. ?If diaphragmatic or ventral hernias are present at time of surgery, these will be repaired laparoscopically as well. 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 I emphasized the importance of close follow-up, adherence to instructions and good communication. So far she has proven to be an excellent communicator and very compliant with all our directions accomplishing a great weight loss. I believe that she is an excellent candidate and she is ready. 2. Preop prescriptions were provided and explained the purpose of each one. Need to be purchased preop. Start Pantoprazole now as you get it from the pharmacy, 1 pill per day. Sucralfate and Zofran are for after surgery as needed. 3. Bowel prep: please do 7 packets ?of Miralax mixing each one with a an 8oz glass of water, crystal light, gatorade zero, or propel ?on 01/11/25 and the same amount on 01/12/25. The Miralax you begin with one packet at a time in 8oz water or crystal light, gatorade zero, or propel ?as early in the day as you can and you do them back to back until you finish them. Continue the protein shakes during ?the bowel prep. 4. Needs to purchase 1oz medicine cups . 5. Needs to purchase Children's liquid Tylenol for postop pain control. 6. Avoid aspirin, motrin, Advil, Aleve, Meloxicam, Excedrin, Ibuprofen, Naproxyn. Tylenol is OK. 7. She needs to purchase the Celebrate multivitamins from the hospital's gift shop. 8. Will do basic preop blood work-up any day between Saturday01/04/25 and Saturday01/08/25 fasting for 12 hours and is scheduled to see the Anesthesiologist prior to the day of surgery. 9. Importance of adherence to postop folllow-up and recommendations was underscored and she understands that. 10. Stop food and bars as of Saturday01/03/25 and continue with 5 Celebrate REBUILD protein shakes (TWO scoops in 8-10oz almond milk) at 8am-10am, 11am-1pm, 2pm- 4pm, 5pm-7pm and at 8pm-10pm 11. No soups, broths or V8 12. The patient's?medical?history has been reviewed and they are considered low risk for post op DVT and therefore DVT prophylaxis is not considered necessary. Travel after surgery was reviewed. The patient has not disclosed any travel plans during the first 30 days after surgery and they have been advised that within the first 30 days after surgery any bus, plane, train or car travel over 2 hours in duration is contraindicated due to the possibility of developing blood clots from immobility. Any travel, needs to include periods of ambulation of 10 minutes in duration every 2 hours.? Patient was instructed to discuss any plans for travel during this period with their bariatric surgeon.? 13. As of tomorrow, please check your blood pressure daily in the morning. If your blood pressure is: Below 120/70: do not take the Losartan and the Hydrochlorothiazide 121/71 to 140/90: take HALF Losartan and HALF Hydrochlorothiazide Over 141/91: take the whole Losartan and the whole Hydrochlorothiazide 14. Please take at the day of surgery the following medications: LOSARTAN if the blood pressure that day is high enough to justify it based on the parameters at the previous bullet point. 15. Stop any control pills and don't use them for one month after surgery 16. Absolutely no smoking or vaping, or marijuana until the surgery and for at least the first 4 weeks. Only nicotine patches are allowed. 17. Send me weight measurements tomorrow 01/02/25, on and then on the day of surgery before you go to the hospital. 18. Avoid any steroids by mouth for any reason. Let me know if someone prescribes them to you 19. These instructions supersede anything else you read in the handbook, anything you watched in videos or classes or you were told by any other provider. If there is any conflict, you follow the above instructions and nothing else. Orders: Orders Prothrombin Time INR Today E66.01 - Morbid (severe) obesity due to excess calories, I10 - Essential (primary) hypertension Hemoglobin A1c Today E66.01 - Morbid (severe) obesity due to excess calories, I10 - Essential (primary) hypertension C Reactive Protein Today E66.01 - Morbid (severe) obesity due to excess calories, I10 - Essential (primary) hypertension Insulin Today E66.01 - Morbid (severe) obesity due to excess calories, I10 - Essential (primary) hypertension Comprehensive Met. Panel Today E66.01 - Morbid (severe) obesity due to excess calories, I10 - Essential (primary) hypertension TSH reflex Free T4 Today E66.01 - Morbid (severe) obesity due to excess calories, I10 - Essential (primary) hypertension Type and Screen Today E66.01 - Morbid (severe) obesity due to excess calories, I10 - Essential (primary) hypertension Lipid Panel Today E66.01 - Morbid (severe) obesity due to excess calories, I10 - Essential (primary) hypertension Partial Thromboplastin Time Today E66.01 - Morbid (severe) obesity due to excess calories, I10 - Essential (primary) hypertension Complete Blood Count Auto Diff Today E66.01 - Morbid (severe) obesity due to excess calories, I10 - Essential (primary) hypertension Medications: New ondansetron Only take one every 12 hours as needed if you have nausea 4 mg PO Q12H 20 tabs 0RF nausea and vomiting R11.0 - Nausea polyethylene glycol 3350 Mix each measuring cup with 8oz of water, Crystal light, or Gatorade zero, or Propel and do 7 measuring cups on 01/11/25 and another 7 measuring cups on 01/12/25 17 grams PO DAILY 238 grams 0RF Z01.818 - Encounter for other preprocedural examination pantoprazole 40 mg PO DAILY 90 tabs 0RF K21.9 - Gastro-esophageal reflux disease without esophagitis sucralfate 10 mL PO BID 600 mL 2RF K21.9 - Gastro-esophageal reflux disease without esophagitis
[2025-01-01 12:46] VITALS: BMI 48.5
--- OUTSIDE RECORDS SUMMARY | 2025-01-01 14:46 | XMS_ITS | Clinical Summary ---
Author Organization [facility] Address [address] [place] [address] Phone Care Team Providers Care Chemical Processing Technician Name Role Phone Alyson Mojica MD Primary Care Provider [phone] Allergies No known active allergies Medications losartan (COZAAR) 100 mg tablet Take 1 tablet (100 mg total) by mouth 1 (one) time each day. Take 1 Tablet by mouth daily. 90 tablet 2 4 Active hydroCHLOROthia zide (HYDRODIURIL) 25 mg tablet Take 1 tablet (25 mg total) by mouth 1 (one) time each day. 30 each 5 4 03/22/20 25 Active amLODIPine (NORVASC) 5 mg tablet Take 1 tablet (5 mg total) by mouth 1 (one) time each day. 30 each 5 4 04/17/20 25 Active polyethylene glycol (Golytely) 236-22.74-6.74 -5.86 gram solution Take 4L by mouth once for one dose. May substitue any PEG. Starting at 6PM the night before your procedure drink 1 8oz glasses at your own pace until you complete half of the gallon. Finish 2nd half of the gallon 5 hours before your procedure. 4000 mL 4 Active bisacodyL (DULCOLAX) 5 mg EC tablet Take 2 tablets by mouth right before beginning bowel prep. See instructions provided by the office 2 tablet 4 Active cyanocobalamin, vitamin B-12, 1,000 mcg tablet, sublingual PLACE 1 TABLET UNDER TONGUE AND ALLOW TO DISSOLVE FOR AT LEAST30 SECS BEFORE SWALLOWING ONCE DAILY 4 Active potassium chloride (KLOR-CON) 20 mEq packet Take 20 mEq by mouth 1 (one) time each day. 90 each 2 4 Active ferrous sulfate 324 mg (65 mg elemental iron) EC tablet Take 1 tablet (324 mg total) by mouth 1 (one) time each day with breakfast. 45 tablet 2 5 Active ferrous sulfate 325 mg (65 mg elemental iron) tablet TAKE 1 TABLET BY MOUTH EVERY DAY 90 tablet 1 5 Active docusate sodium (COLACE) 100 mg capsule TAKE 1 CAPSULE BY MOUTH TWICE A DAY 60 capsule 5 5 Active Active Problems Problem Noted Date Diagnosed Date Constipation 09/15/2024 Morbid obesity 09/15/2024 Primary hypertension 09/15/2024 Encounters Date Type Department Care Team Description 11/06/2024 9:55 AM EST Anesthesia Event [facility] Endoscopy [address] [place] [address] Jane Li MD 11/06/2024 9:17 AM EST - 11/06/2024 11:59 PM EST Hospital Encounter [facility] Endoscopy [address] [place] [address] Danyelle Bautista DO Special screening for malignant neoplasms, colon Discharge Disposition: Home or Self Care 10/19/2024 2:00 PM EST Office Visit Internal Medicine - [place] [address] [facility] [address] [place] [id number] Alyson Mojica MD Primary hypertension (Primary Dx) from Last 3 Months Surgical History Surgery [...] care for your loved ones. For example, early childhood associate teacher or elderly care for an older adult? [...] Comments DTaP,Tdap,and Td Vaccines (1 - Tdap) 1992 Hepatitis B Vaccines (1 of 3 - [...] PM EST Primary hypertension Anemia, unspecified type MG MAMMO DIAGNOSTIC ADDL VIEWS RIGHT Routine 09/15/2024 3:48 PM EST Masses of both breasts HM HPV Routine 08/17/2024 LIPID PANEL Routine 05/26/2024 from Last 3 Months or Most Recently Relevant to Health Maintenance Results * COLONOSCOPY Anesthesia - MAC; [facility] ENDOSCOPY (11/06/2024 10:12 AM EST) Anatomical Region [...] pathology results. Narrative 11/06/2024 10:17 AM EST [facility] GI Patient Name: Rupinder Rico Procedure Date: 11/06/2024 10:14 AM Date of : 1975 Age: 49 Gender: Female Note Status: Finalized Attending MD: Danyelle Bautista DO, [id number] Procedure Date No Time: 11/06/2024 Procedure: ? [...] physician, the nurse, the ? anesthesiologist, the subacute nurse and the rehab technician ? in the pre-procedure area in [...] Procedure Code(s): ? --- Professional --- ? 41874, Colonoscopy, flexible; with removal of ? tumor(s), polyp(s), or other lesion(s) by snare ? technique Diagnosis Code(s): ? --- Professional --- ? D12.5, Benign neoplasm of sigmoid colon ? K64.9, Unspecified hemorrhoids ? Z12.11, Encounter for screening for malignant neoplasm ? of colon CPT copyright 2020 [employer]. All rights reserved. The codes documented in this report are preliminary and upon coal trammer review may be revised to meet current compliance requirements. DANYELLE Bautista DO 11/06/2024 10:16:58 AM This report has been signed electronically.Danyelle Bautista DO Number of Addenda: 0 Note Initiated On: 11/06/2024 10:14 AM ? Endoscopy Department at [facility] - [address] [place] [address], ? [place] [address] Procedure Note Danyelle Bautista DO - 11/06/2024 [facility] GI Patient Name: Rupinder Rico Procedure Date: 11/06/2024 10:14 AM Date of : 1975 Age: 49 Gender: Female Note Status: Finalized Attending MD: Danyelle Bautista DO, [id number] Procedure Date No Time: 11/06/2024 Procedure: Colonoscopy [...] the physician, the nurse, the anesthesiologist, the subacute nurse and thetechnician in the pre-procedure area in [...] retroflexion views. Procedure Code(s): --- Professional --- 34946, Colonoscopy, flexible; with removal of tumor(s), polyp(s), or other lesion(s) by snare technique Diagnosis Code(s): --- Professional --- D12.5, Benign neoplasm of sigmoid colon K64.9, Unspecified hemorrhoids Z12.11, Encounter for screening for malignantneoplasm of colon CPT copyright 2020 [employer]. All rights reserved. The codes documented in this report are preliminary and upon coal trammer reviewmay be revised to meet current compliance requirements. DANYELLE Bautista DO 11/06/2024 10:16:58 AM This report has been signed electronically.Danyelle Bautista DO Number of Addenda: 0 Note Initiated On: 11/06/2024 10:14 AM Endoscopy Department at [facility] - [address] [place] [phone] IMPRESSION: - Hemorrhoids found on perianal exam. - One 12 mm polyp in the sigmoid colon, removedwith a hot snare. Resected and retrieved. - The examination was otherwise normal on directand retroflexion views. Recommendation: - - Discharge patient to home. - High fiber diet. - Continue present medications. - Await pathology results. - Repeat colonoscopy for surveillance based on pathology results. Danyelle Bautista DO GI~PROCEDURE ORDERABLES Final Re sult * Tissue exam (11/06/2024 10:09 AM EST) Final Diagnosis Sigmoid Colon, polyp x 1: Tubular adenoma, fragmented. 11/09/2024 11:09 AM EST [facility] Gross Description A. Large Intestine, Sigmoid [...] not survive processing. dvb/DG 11/09/2024 11:09 AM [facility] Disclaimer Unless otherwise specified, all tissue is 10% NB formalin fixed and paraffin embedded. 11/09/2024 11:09 AM [facility] Tissue Sigmoid colon structure / Unknown 11/06/2024 10:09 AM EST 11/06/2024 11:57 AM EST us Danyelle Bautista DO LAB PATHOLOGY ORDERABLES Final R esult [facility] [address] [place] [address], [place] [phone] * (ABNORMAL) CBC auto differential (10/19/2024 2:12 PM EST) WBC 6.0 4.8 - 10.8 K/mcL LAB HEMETOLOGY METHOD 10/19/2024 6:35 PM [facility] RBC 4.60 3.80 - 4.80 M/mcL LAB HEMETOLOGY METHOD 10/19/2024 6:35 PM [facility] Hemoglobin 12.4 11.5 - 16.0 g/dL LAB HEMETOLOGY METHOD 10/19/2024 6:35 PM [facility] Hematocrit 38.3 35.0 - 47.0 % LAB HEMETOLOGY METHOD 10/19/2024 6:35 PM [facility] MCV 84.2 79.0 - 98.0 FL LAB HEMETOLOGY METHOD 10/19/2024 6:35 PM [facility] MCH 27.3 27.0 - 32.0 pcg LAB HEMETOLOGY METHOD 10/19/2024 6:35 PM [facility] MCHC 32.4 32.0 - 37.0 g/dL LAB HEMETOLOGY METHOD 10/19/2024 6:35 PM [facility] RDW 14.6 11.0 - 15.0 % LAB HEMETOLOGY METHOD 10/19/2024 6:35 PM [facility] Platelets 182 130 - 400 K/mcL LAB HEMETOLOGY METHOD 10/19/2024 6:35 PM [facility] MPV 11.9(H) 7.0 - 11.0 FL LAB HEMETOLOGY METHOD 10/19/2024 6:35 PM [facility] NRBC 0.0 <1.0 % LAB HEMETOLOGY METHOD 10/19/2024 6:35 PM [facility] NRBC Absolute 0.00 <0.10 K/mcL LAB HEMETOLOGY METHOD 10/19/2024 6:35 PM [facility] Neutrophils Relative 54.3 % LAB HEMETOLOGY METHOD 10/19/2024 6:35 PM [facility] Lymphocytes Relative 32.8 % LAB HEMETOLOGY METHOD 10/19/2024 6:35 PM [facility] Monocytes Relative 10.0 % LAB HEMETOLOGY METHOD 10/19/2024 6:35 PM [facility] Eosinophils Relative 2.0 % LAB HEMETOLOGY METHOD 10/19/2024 6:35 PM [facility] Basophils Relative 0.7 % LAB HEMETOLOGY METHOD 10/19/2024 6:35 PM [facility] Immature Granulocytes Relative 0.2 % LAB HEMETOLOGY METHOD 10/19/2024 6:35 PM [facility] Neutrophils Absolute 3.25 1.50 - 7.00 K/mcL LAB HEMETOLOGY METHOD 10/19/2024 6:35 PM [facility] Lymphocytes Absolute 1.96 1.00 - 5.00 K/mcL LAB HEMETOLOGY METHOD 10/19/2024 6:35 PM EST [facility] Monocytes Absolute 0.60 0.20 - 1.00 K/mcL LAB HEMETOLOGY METHOD 10/19/2024 6:35 PM EST [facility] Eosinophils Absolute 0.12 0.00 - 0.50 K/mcL LAB HEMETOLOGY METHOD 10/19/2024 6:35 PM EST [facility] Basophils Absolute 0.04 0.00 - 0.20 K/mcL LAB HEMETOLOGY METHOD 10/19/2024 6:35 PM EST [facility] Immature Granulocytes Absolute 0.01 0.00 - 0.03 K/mcL LAB HEMETOLOGY METHOD 10/19/2024 6:35 PM EST [facility] Blood Venous blood specimen / Unknown Venipuncture / Unknown 10/19/2024 2:12 PM EST 10/19/2024 2:12 PM EST us Alyson Mojica MD LAB BLOOD ORDERABLES Final Res ult Performing Organization Address [facility]/ZIP Co de Phone Number [facility] [address] [place] [address], [place] [phone] * Iron and TIBC (10/19/2024 2:12 PM EST) Iron 80 40 - 150 mcg/dL LAB CHEMISTRY METHOD 10/19/2024 8:47 PM EST [facility] TIBC 317 250 - 450 mcg/dL LAB CHEMISTRY METHOD 10/19/2024 8:47 PM EST [facility] Iron Saturation 25 15 - 50 % LAB CHEMISTRY METHOD 10/19/2024 8:47 PM EST [facility] Blood Venous blood specimen / Unknown Venipuncture / Unknown 10/19/2024 2:12 PM EST 10/19/2024 2:12 PM EST us Alyson Mojica MD LAB BLOOD ORDERABLES Final Res ult Performing Organization Address City/[facility]/ZIP Co de Phone Number [facility] [address] [place] [address], [place] [phone] * Ferritin (10/19/2024 2:12 PM EST) Pathologist [facility] Ferritin 19 8 - 252 ng/mL LAB CHEMISTRY METHOD 10/19/2024 8:47 PM [facility] Blood Venous blood specimen / Unknown Venipuncture / Unknown 10/19/2024 2:12 PM EST 10/19/2024 2:12 PM EST Alyson Mojica MD LAB BLOOD ORDERABLES Final Res ult Performing Organization Address [facility]/ZIP Co de Phone Number [facility] [address] [place] [address], [place] [phone] * (ABNORMAL) Basic metabolic panel (10/19/2024 2:12 PM EST) [facility] Sodium 141 133 - 145 mmol/L LAB CHEMISTRY METHOD 10/19/2024 8:47 PM [facility] Potassium 3.4(L) 3.5 - 5.5 mmol/L LAB CHEMISTRY METHOD 10/19/2024 8:47 PM [facility] Chloride 107 96 - 110 mmol/L LAB CHEMISTRY METHOD 10/19/2024 8:47 PM [facility] CO2 28 21 - 32 mmol/L LAB CHEMISTRY METHOD 10/19/2024 8:47 PM [facility] Anion Gap 6 3 - 11 LAB CHEMISTRY METHOD 10/19/2024 8:47 PM [facility] Glucose 103(H) 70 - 100 mg/dL LAB CHEMISTRY METHOD 10/19/2024 8:47 PM [facility] BUN 17 5 - 25 mg/dL LAB CHEMISTRY METHOD 10/19/2024 8:47 PM [facility] Creatinine 1.05 0.50 - 1.10 mg/dL LAB CHEMISTRY METHOD 10/19/2024 8:47 PM EST [facility] eGFR 64 >=60 mL/min/1. 73m2 LAB CHEMISTRY METHOD 10/19/2024 8:47 PM EST [facility] Comment:Calculation based on the??Chronic Kidney Disease Epidemiology Collaboration (CKD-EPI) equation refit??without adjustment for race. BUN/Creatinine Ratio 16.2 LAB CHEMISTRY METHOD 10/19/2024 8:47 PM EST [facility] Calcium 9.6 8.5 - 10.5 mg/dL LAB CHEMISTRY METHOD 10/19/2024 8:47 PM EST [facility] Blood Venous blood specimen / Unknown Venipuncture / Unknown 10/19/2024 2:12 PM EST 10/19/2024 2:12 PM EST us Alyson Mojica MD LAB BLOOD ORDERABLES Final Res ult [facility] [address] [place] [address], [place] [phone] * MG Mammo Diagnostic Addl Views Right [...] Mammogram performed at [facility] [address] [address] -------- FINAL REPORT -------- Dictated By: Jacqueline Ruggiero Dictated Date: 09/22/2024 13:58 ET Assigned Physician: Jacqueline Ruggiero Reviewed and Electronically Signed By: Jacqueline Ruggiero Signed Date: 09/22/2024 14:10 ET Workstation ID: [id number] Transcribed By: Self Edit Transcribed Date: 09/22/2024 [...] at 8:00, close to the skin line, [id number] cm from the nipple, a 20 mm [...] Mammogram performed at [place] [address] -------- FINAL REPORT -------- Dictated By: Jacqueline Ruggiero Dictated Date: 09/22/2024 13:58 ET Assigned Physician: Jacqueline Ruggiero Reviewed and Electronically Signed By: Jacqueline Ruggiero Signed Date: 09/22/2024 14:10 ET Workstation ID: [id number] Transcribed By: Self Edit Transcribed Date: 09/22/2024 13:58 ET Eden Vasquez CNM IMG BI PROCEDURES Final Result * Cervical Cancer Screening: HPV (08/17/2024) Pathologist [facility] Cervical Cancer Screening: HPV normal, abstracted Historical [...] Most Recently Relevant to Health Maintenance Insurance PLAN Care Teams Chemical Processing Technician Relationship Specialty Start Date End Date Alyson Mojica MD [address] [phone] PCP - General 05/21/24
== END 2025-01-01 13:06 | disposition home or self-care (01) ==
LOC: HO.HBS 12:42
PROVIDERS: PCP Internal Medicine; Visit Provider Surgery
DX: E66.01 Morbid (severe) obesity due to excess calories (principal)
CPT/HCPCS: 99499

== ENCOUNTER → 2025-01-08 07:56 | Outpatient (BNVA) | payer OTHER, SELFPAY | PROVIDERS: PCP Internal Medicine; Visit Provider Physician Assistant Surgical ==

== ENCOUNTER → 2025-01-25 07:30 | Outpatient (BNV) | payer OTHER, SELFPAY | PROVIDERS: Admitting Provider Surgery; PCP Internal Medicine; Visit Provider Surgery | DX: E66.813 Obesity, class 3 (principal); Z68.42 Body mass index [BMI] 45.0-49.9, adult; K31.7 Polyp of stomach and duodenum; K66.0 Peritoneal adhesions (postprocedural) (postinfection) | CPT/HCPCS: 43659; 43775 ==

== ENCOUNTER 2025-01-25 10:18 | Inpatient (IN) | payer OTHER, SELFPAY ==
[2025-01-06 12:25] VITALS: BMI 48.2
[2025-01-08 09:01] LABS: MANUAL DIFF FLAG NO
[2025-01-08 09:05] LABS: Basophils Percent Auto 0.5 % (0-2); Eosinophils Absolute Auto 0.1 X10*3/uL (0.0-0.4); Eosinophils Percent Auto 1.9 % (0-4); Hematocrit 36.8 % (37.0-47.0); Hemoglobin 12.6 g/dl (12.0-16.0); Imm Gran Abs Auto 0.02 X10*3/uL (0.00-0.03); Imm Gran Pct Auto 0.5 % (0.0-0.4); Lymphocytes Absolute Auto 1.4 X10*3/uL (1.2-4.9); Lymphocytes Percent Auto 32.3 % (20-40); Mean Corpuscular HGB Conc 34.2 g/dl (31.0-35.0); Mean Corpuscular Hemoglobin 27.6 pg (27.0-33.0); Mean Corpuscular Volume 80.5 fL (80.0-98.0); Mean Platelet Volume 10.1 fL (9.4-12.3); Monocytes Absolute Auto 0.5 X10*3/uL (0.1-1.2); Monocytes Percent Auto 12.7 % (2-11); Neutrophils Absolute Auto 2.2 x10*3/uL (2.0-8.3); Neutrophils Percent Auto 52.1 % (45-73); Platelet Count 173 X10*3/uL (160-400); Red Blood Count 4.57 X10*6/uL (4.20-5.50); White Blood Count 4.2 X10*3/uL (4.8-10.8)
[2025-01-08 09:12] LABS: Prothrombin Time 11.9 SEC (10.9-12.4)
[2025-01-08 09:14] LABS: Partial Thromboplastin Time 31.5 SEC (26.0-36.8)
[2025-01-08 10:07] LABS: Estimated Average Glucose 103 mg/dL; Hemoglobin A1c % 5.2 % (<6.0)
[2025-01-08 10:25] LABS: TSH reflex Free T4 1.94 uIU/mL (0.32-4.0)
[2025-01-08 11:31] LABS: Alanine Aminotransferase 18 U/L (0-31); Albumin Level 3.9 g/dL (3.5-5.0); Anion Gap 14 (12-20); Aspartate Amino Transferase 34 U/L (5-31); Bilirubin Total 1.3 mg/dL (0.0-1.0); Blood Urea Nitrogen 9 mg/dL (9-16); Calcium 9.8 mg/dL (8.4-10.2); Carbon Dioxide 25 mmol/L (22-29); Chloride 106 mmol/L (96-108); Cholesterol 242 mg/dL (<200); Creatinine Clr Calc Pharmacy 99.5; Estimated Glomerular Filt Rate 60; Glucose Random 91 mg/dL (60-115); HDL Cholesterol 52 mg/dL (>40); LDL Cholesterol Calculated 170 mg/dL (<100); Potassium 3.1 mmol/L (3.3-5.1); Sodium 142 mmol/L (135-145); Total Protein 7.5 g/dL (6.5-8.0); Triglycerides 102 mg/dL (<150)
[2025-01-08 11:45] LABS: Insulin 11 uU/mL (2-29)
[2025-01-08 12:40] LABS: Alkaline Phosphatase 67 U/L (39-117)
--- NOTE | 2025-01-21 13:02 | HO.ANESPROP2 ---
Documented by User: Yvonne Katz NP 01/21/25 13:04 HPI - Anesthesia Eval Consult details Narrative: 49yo F for Gastrectomy Sleeve - EGD, possible diaphragmatic hernia, possible ventral hernia, possible open Cardiac w/u by bariatric provider. Case reviewed with Dr Daquan BOYD Active Problems Active Problems: All Active Problems Pre-op evaluation (Acute) Abnormal stress test (Acute) Abnormal EKG (Acute) Vitamin B12 deficiency (Acute) Hypokalemia (Acute) Hypertension (Acute) Morbid obesity (Acute) Past Medical History Medical History Hypertension Morbid obesity Family History Family History Mother No problems noted. Father No problems noted. Daughter No problems noted. Daughter No problems noted. Son No problems noted. Family history of problems with anesthesia: No Surgical History Surgical History History of esophagogastroduodenoscopy (EGD) Hx of section History of Problems with Anesthesia: No Social History Social History Are you a primary critical care paramedic to a significant other at home: No Do you presently have visiting nurse or other home services: No Alcohol intake: never Patient Tobacco Use Status: Never used Tobacco Meds Allergies Allergy/AdvReac Type Severity Reaction Status Date / Time No Known Allergies Allergy Verified 01/25/25 06:23 Home Medications ?Medication ?Instructions ?Recorded ?Confirmed ?Last Taken ?Type docusate sodium 100 mg capsule 100 mg PO BID 09/03/24 01/25/25 01/24/25 History ferrous sulfate 325 mg (65 mg 325 mg PO DAILY 09/03/24 01/25/25 01/06/25 History iron) tablet hydrochlorothiazide 12.5 mg tablet 12.5 mg PO DAILY 09/03/24 01/25/25 01/23/25 History losartan 100 mg tablet 100 mg PO DAILY 09/03/24 01/25/25 01/25/25 History amlodipine 5 mg tablet 5 mg PO DAILY 01/08/25 01/25/25 01/24/25 History Exam Height,Weight and Vital Signs: Height 5 ft 7 in Weight 139.706 kg Pertinent Lab Results Pertinent Lab Results: Laboratory Tests 01/08/25 01/08/25 01/21/25 08:48 08:58 10:18 WBC 4.2 L RBC 4.57 Hgb 12.6 Hct 36.8 L MCV 80.5 MCH 27.6 MCHC 34.2 RDW 14.0 Plt Count 173 MPV 10.1 Immature Gran % (Auto) 0.5 H Neut % (Auto) 52.1 Lymph % (Auto) 32.3 [place] % (Auto) 12.7 H Eos % (Auto) 1.9 Baso % (Auto) 0.5 Lymph # (Auto) 1.4 [place] # (Auto) 0.5 Eos # (Auto) 0.1 Baso # (Auto) 0.0 Abs Immat Gran (auto) 0.02 Absolute Neuts (auto) 2.2 Absolute Nucleated RBC 0.000 Nucleated RBC % (auto) 0.0 PT 11.9 INR 1.0 APTT 31.5 Sodium 142 Potassium 3.1 L Chloride 106 Carbon Dioxide 25 Anion Gap 14 BUN 9 Creatinine 0.98 Estim Creat Clear Calc 99.5 Estimated GFR 60 Random Glucose 91 Estimat Average Glucose 103 Hemoglobin A1c % 5.2 Insulin Level 11 Calcium 9.8 Total Bilirubin 1.3 H AST 34 H ALT 18 Alkaline Phosphatase 67 C-Reactive Protein 0.60 H Total Protein 7.5 Albumin 3.9 Triglycerides 102 Cholesterol 242 H LDL Cholesterol, Calc 170 H HDL Cholesterol 52 TSH 1.94 Blood Type O Positive O Positive Antibody Screen NEGATIVE NEGATIVE Narrative Narrative: EKG 2023 Vent. Rate : 075 BPM Atrial Rate : 075 BPM P-R Int : 170 ms QRS Dur : 108 ms QT Int : 424 ms P-R-T Axes : 052 015 134 degrees QTc Int : 473 ms Normal sinus rhythm Minimal voltage criteria for LVH, may be normal variant ( [place] product ) T wave abnormality, consider lateral ischemia Prolonged QT Abnormal ECG No previous ECGs available ECHO 11/2024 Conclusions: - The left ventricular systolic function is normal. The calculated ejection fraction is 65% by biplane method. - No obvious valvular pathology seen on this study. - There is mild dilatation of the ascending aorta measuring 4.00 cm. Exercise Stress 11/2024 Protocol: JEFFREY Max HR: 171 BPM 101% of Pred: 169 BPM Max BP: 248/120 mmHG Max Work Load: 4.6 METS Exercise Stress Test with exercise 3 mins 5 secs of Jeffrey Protocol, held at stage 1, achieving 98% MPHR, reports of severe SOB, requesting to stop, no chest discomfort, without any arrythmias, with baseline BP 128/70 that went up to 248/120 with exercise. With EKG changes meeting criteria for ischemia - ST depression noted inferiorly and in V4-V6. In recovery, continues to deny chest discomfort, breathing returned to baseline. 23 minutes into recovery and EKGs improved very gradually. BP improved to 148/98. Recommend further testing with Cardiology referral, if needed. Test reviewed with Dr. Lozada. Stress ECHO 2024 Findings : At rest images were of good quality. There is normal LV systolic function with normal wall motion. Post exercise images are of adequate quality. There is good augmentation of overall LV systolic function with no regional wall motion abnormalities. Conclusion : Stress echo is negative for ischemia. Assessment and Plan Assessment Anesthesia Assessment: Chart Reviewed Final Anesthetic Review Family History of Problems with Anesthesia: No History of Problems with Anesthesia: No Documented by User: Rubi Love MD 01/25/25 08:36 HPI - Anesthesia Eval Consult details Narrative: 49yo F for EGD. Laparoscopic Sleeve Gastrectomy, possible diaphragmatic hernia repair, possible ventral hernia repair, possible open Cardiac w/u by bariatric provider. Case reviewed with Dr Daquan JO Active Problems Active Problems: All Active Problems Pre-op evaluation (Acute) Abnormal stress test (Acute) Abnormal EKG (Acute) Vitamin B12 deficiency (Acute) Hypokalemia (Acute) 3.1. Had been on oral potassium supplements but ran out about 2 weeks ago. No increase in Potassium levels - still 3.1 on 01/08/25 compared with 09/27. Dr Strickland aware Hypertension (Acute) Morbid obesity (Acute) BMI 46.9 Denies RADHA Past Medical History Medical History Hypertension Morbid obesity Family History Family History Mother No problems noted. Father No problems noted. Daughter No problems noted. Daughter No problems noted. Son No problems noted. Family history of problems with anesthesia: No Surgical History Surgical History History of esophagogastroduodenoscopy (EGD) Hx of section History of Problems with Anesthesia: No Social History Social History Are you a primary critical care paramedic to a significant other at home: No Do you presently have visiting nurse or other home services: No Alcohol intake: never Patient Tobacco Use Status: Never used Tobacco Meds Allergies Allergy/AdvReac Type Severity Reaction Status Date / Time No Known Allergies Allergy Verified 01/25/25 06:23 Home Medications ?Medication ?Instructions ?Recorded ?Confirmed ?Last Taken ?Type docusate sodium 100 mg capsule 100 mg PO BID 09/03/24 01/25/25 01/24/25 History ferrous sulfate 325 mg (65 mg 325 mg PO DAILY 09/03/24 01/25/25 01/06/25 History iron) tablet hydrochlorothiazide 12.5 mg tablet 12.5 mg PO DAILY 09/03/24 01/25/25 01/23/25 History losartan 100 mg tablet 100 mg PO DAILY 09/03/24 01/25/25 01/25/25 History amlodipine 5 mg tablet 5 mg PO DAILY 01/08/25 01/25/25 01/24/25 History Exam Height,Weight and Vital Signs: Height 5 ft 7 in Weight 139.706 kg Vital Signs Temp Pulse Resp BP Pulse Ox O2 Del Method 01/25/25 06:37 97.1 F 72 16 152/91 H 98 Room Air Pertinent Lab Results Pertinent Lab Results: Laboratory Tests 01/08/25 01/08/25 01/21/25 08:48 08:58 10:18 WBC 4.2 L RBC 4.57 Hgb 12.6 Hct 36.8 L MCV 80.5 MCH 27.6 MCHC 34.2 RDW 14.0 Plt Count 173 MPV 10.1 Immature Gran % (Auto) 0.5 H Neut % (Auto) 52.1 Lymph % (Auto) 32.3 [place] % (Auto) 12.7 H Eos % (Auto) 1.9 Baso % (Auto) 0.5 Lymph # (Auto) 1.4 [place] # (Auto) 0.5 Eos # (Auto) 0.1 Baso # (Auto) 0.0 Abs Immat Gran (auto) 0.02 Absolute Neuts (auto) 2.2 Absolute Nucleated RBC 0.000 Nucleated RBC % (auto) 0.0 PT 11.9 INR 1.0 APTT 31.5 Sodium 142 Potassium 3.1 L Chloride 106 Carbon Dioxide 25 Anion Gap 14 BUN 9 Creatinine 0.98 Estim Creat Clear Calc 99.5 Estimated GFR 60 Random Glucose 91 Estimat Average Glucose 103 Hemoglobin A1c % 5.2 Insulin Level 11 Calcium 9.8 Total Bilirubin 1.3 H AST 34 H ALT 18 Alkaline Phosphatase 67 C-Reactive Protein 0.60 H Total Protein 7.5 Albumin 3.9 Triglycerides 102 Cholesterol 242 H LDL Cholesterol, Calc 170 H HDL Cholesterol 52 TSH 1.94 Blood Type O Positive O Positive Antibody Screen NEGATIVE NEGATIVE Airway Mallampati Class: II TM Dist: >3cm Neck ROM: Full Loose/Missing/Broken Teeth: Yes (Missing some teeth. Denies broken or loose teeth) Heart: RRR Lungs: CTAB Assessment and Plan Assessment Anesthesia Assessment: Anesthesia Plan Discussed and Chart Reviewed Final Anesthetic Review Family History of Problems with Anesthesia: No History of Problems with Anesthesia: No NPO: Yes ASA Class: III Final Preanesthetic Review: No Changes in Pt Med Stat, Meds/Allgs Chart Reviewed, Consent Obtained/Reviewed and Anes Risks/Benef Reviewed Patient Risk: Intermediate Procedure Risk: Intermediate Assessment/Block/Sedation in : Assess/Block/Sedation- Anesthetic Plan Anesthetic Plan: GA Disposition: Standard PACU and Inp. Admit - Standard Bed
[2025-01-25] VITALS (12 sets, daily range): BP systolic 127–156; BP diastolic 73–91; PULSE 71–84; RESP 12–22; TEMP 36.2–36.6; O2SAT 92–98; BMI 46.9
[2025-01-25] MEDS: Aprepitant 32 MG/4.4 ML VIAL IVPUSH (06:43)
[2025-01-25] MEDS: Lactated Ringers 1,000 ML 999 ML IV (06:45)
[2025-01-25] MEDS: Lactated Ringers 1,000 ML 100 ML IVCONT ×2 (06:45→12:20)
--- NOTE | 2025-01-25 07:21 | MHC.SHP ---
Pre-Procedural Eval Section A - 24 Hr Update-Section A only Date of Service: 01/25/25 The patient is an INPATIENT: Yes The patient has been examined within 24 hours of the surgical procedure. The History & Physical has been completed within 30 days and I have reviewed it.: Yes Section B - Complete if H&P > 30 days Chief Complaint: Morbid (severe) obesity due to excess calories Relevant Family History (Specify if Yes): No Relevant Social History: None Present Medications: None Medical History: No relevant PMH History of Previous Operations: No relevant previous surgery Allergies: Allergies Allergy/AdvReac Type Severity Reaction Status Date / Time No Known Allergies Allergy Verified 01/25/25 06:23 Review of Systems Sugical H&P ROS: Negative: Constitution, Cardiovascular, Respiratory, Neurological, Psychiatric, Hem-Onc, Allergic/Immunologic, Gastrointestinal, Genitourinary, Musculoskeletal, Integumentary, Endocrine and Eyes/Ears/Nose/Throat Exam Surgical H&P Exam: Normal: HEENT, Normal: Heart, Normal: Lungs, Normal: Extremities, Normal: Abdomen, Normal: Skin and Normal: Neurological Plan Diagnosis/Plan: Unchanged I have reviewed the history and physical and performed a pertinent physical examination on my patient. No changes have occurred unless specified. Time Spent With Patient Time: Total time managing care of this patient today ____ minutes.
--- NOTE | 2025-01-25 07:22 | P.BOP_ITS ---
Brief Operative Note Date of Service: 01/25/25 Pre-op diagnosis: Morbid obesity with comorbidities (see below) Post-op diagnosis: same Procedure: INITIAL PATIENT BMI ON PRESENTATION AT OUR OFFICE: 54.2 kg/m2 LAST BMI BEFORE SURGERY: 45.6 kg/m2 COMORBIDITIES: hypertension, LVH, gastric polyps ?The patient presented to the Weight Management Program with significant obesity that was negatively impacting the patient's comorbidities as listed above.? The program is a phased program with a special focus on preoperative medical weight management to promote substantial weight loss and prepare the patients for the second phase of the program: bariatric surgery. The patient participated in an intensive weekly lifestyle ?intervention and exercise program during which the patient ?has lost between the initial office visit and the last preoperative visit 56.2 lbs, or 15.8% of initial actual body weight. It was deemed appropriate for the patient to now have bariatric surgery. In light of the current Covid-19 pandemic and the well documented strong association of obesity and increased risk of worse outcomes if infected with Covid-19 (REFERENCES: https://pubmed.ncbi.nlm.nih.gov/84426403/ ,? https://pubmed .ncbi.nlm.nih.gov/36461160/ ), any delay in undergoing bariatric surgery may lead to the patient's worsening health condition and increased?risk of more severe Covid-19 disease if infected. In addition a recent?study from [facility] published in [employer] on 10/30/2021 ([email or web address]) found that, among patients with obesity, substantial weight loss achieved with surgery was associated with improved outcomes of COVID-19 infection. The findings suggest that obesity can be a modifiable risk factor for the severity of COVID-19 infection. In addition, the patient met the BMI-criteria for bariatric surgery based on the BMI on initial presentation. The patient should not be penalized for achieving s uch weight loss because ?it is not sustainable long-term without surgical intervention and it was achieved in preparation for bariatric surgery ?under my direction and based on my published research ( [email or web address]).[email or web address] and? https://www.soard.org/article/B9265-7234(45)73541-X/pdf ) ?that a 10% preoperative weight loss improves long-term weight loss after surgery and reduces perioperative complications.? Insurance carriers such as [facility] have endorsed my recommendations ?and have included in their policies criteria to include a 10% preoperative weight loss requirement. PROCEDURE: Esophago-gastroscopy, laparoscopic excision of large gastric polyp, laparoscopic lysis of adhesions, laparoscopic sleeve gastrectomy and laparoscopic gastropexy INDICATIONS: This is a 49 year-old female who was electively scheduled for laparoscopic, possibly open sleeve gastrectomy. The risks and complications of the procedure were discussed with the patient in advance, particularly the possibility of ; pulmonary embolism; staple line leak; bleeding; GERD; cardiac, pulmonary, or renal complications; as well as long-term problems such as insufficient weight loss, vitamin deficiency, strictures, or ulcers. The patient understood all the risks, and was in agreement to proceed with surgery. DESCRIPTION OF PROCEDURE: After informed consent was obtained from the patient, the patient was given preoperative antibiotics, and was transferred to the operating room. After successful induction of general anesthesia, pneumatic compression devices were placed on both lower extremities. An upper endoscopy was performed next. The oropharynx and esophagus appeared to be within normal limits. There was no diaphragmatic hernia present consistent wi th the findings of the preoperative upper GI. The stomach was entered. Then after all fluid and air were suctioned and the stomach was fully decompressed, the scope was withdrawn and secured in the mid esophagus. The patient was then prepped and draped in the usual sterile manner, and abdominal access was established at the right upper quadrant with the Aminah technique. A 12 mm blunt port was inserted, and the abdomen was insufflated with CO2 to a pressure of 15 mmHg. Under direct visualization, additional ports were placed, specifically two 5 mm Versi-step ports to the left upper quadrant, and a 5 mm Versi-Step port to the right upper quadrant. 1% lidocaine plain was used to infiltrate all port sites as well as all fascia defects. Following that, the patient was placed in a steep reverse Trendelenburg position. An additional 5 mm port was placed to the right flank for the Mediflex retractor that was used to retract the left lobe of the liver. The gastro-esophageal fat pad was opened with the ultrasonic device (Subhaerbeat, Olympus) and the anterior esophagus and hiatus were exposed. The angle of His was opened with the ultrasonic device the fundus of the stomach from any diaphragmatic and splenic attachments. I then opened the gastrocolic ligament between the transverse colon and the greater curvature of the stomach with the ultrasonic device to enter the lesser sac and facilitate the ligation of the short gastric vessels. I started at a mid-point along the greater curvature and using the Thunderbeat, all short gastric vessels were divided all the way to the angle of His until the left selene was completely dissected at its entirety. I then divided the gastro-colic ligament distally to a distance of about 3-4 cm proximal to the pylorus. There were extensive congenital adhesions between the pancreas and posterior gastric wall. Those were lysed completely with the ultrasonic device. Adhesiolysis took approximately 45 min to complete. An endoscopy was then performed to identify the exact location of the two gastric polyps. The first one was located at the body of the stomach along the greater curvature of the stomach. A 2.0 Polysorb suture was placed in that area to elham its location. There was another large polyp originating from the pylorus and laying over the 1st portion of the duodenum. This was not removed due to its location. The stomach was then divided transversely with two Endo NEHAL-45 purple and four NEHAL-60 articulating purple loads using the Musicplayr stapler and loads. Every effort was made that the gastric sleeve had a tubular shape and an even caliber throughout. Once the sleeve resection was completed, the staple line of the gastric sleeve was reinforced with Hemoclips. After the first load was fired, several additional endoscopies were required to make sure that the entire polyp with appropriate margin was included in the specimen. That was achieved. The resected stomach was retrieved without difficulty from the Aminah port. A gastropexy was then performed in order to prevent postoperative GERD and partial gastric volvulus. Several interrupted 2.0 Surgidac sutures were placed between the sleeve's staple line and the previously divided greater omentum and gastro-colic ligament using the Endo-Stitch device. ?An upper endoscopy was performed. There was no narrowing at the GE junction. The scope was easily advanced all the way to the pylorus which was clearly visualized. There was no narrowing anywhere and the sleeve's caliber was even throughout. The sleeve's staple line was inspected and there was no evidence of ischemia, bleeding or dehiscence. At that point the gastroscope was withdrawn from the patient?s mouth while we were decompressing the bowel and the stomach from any remaining air. I looked into the lesser sac to see how the sleeve was situating and it was situating well. There was no bleeding from the staple line, spleen, or short gastric vessels. The Mediflex retractor was removed, and the undersurface of the liver was inspected and there was no bleeding. The patient was placed in supine position. I closed the fascial defect of the 12 mm port site with a figure of eight #1 Polysorb suture. Then 30cc Ropivacaine were used to infiltrate the fascial closure as well as all skin incisions. At this point, the abdomen was deflated, all ports were removed under direct vision, and no bleeding was noted from any of the port sites. The skin incisions were irrigated with saline and were closed with 4-0 absorbable monofilament sutures. Steri-Strips and OpSites were used to cover all incisions. The patient was extubated and was transferred in stable condition to the recovery room for further care. I was present and performed all pérez parts of the procedure. Ms. Crockett was the first officer and flight instructor. There were no residents to assist with this case. Randolph Strickland MD, PhD, FACS Surgeon: Nolan Strickland MD Anesthesia: GETA, local and other (TAP block) Was an Commercial Construction Estimator used for this Procedure?: Yes Commercial Construction Estimator: Nancy Hawkins Estimated blood loss (mL): 10 IV fluids (mL): 1,600 Urine output (mL): 0 (No Chavez to record output) Pathology: other (1) Stomach, 2) Gastro-esophageal fat pad, 3) gastric polyp) Condition: stable Disposition: PACU
--- NOTE | 2025-01-25 07:26 | PM.PNGS ---
Subjective Subjective Date of Service: 01/26/25 Interval history: Feels well. Mild incisional pain. She is tolerating phase 1 bariatric diet Physical Exam Vital Signs: Vital Signs: Last Vital Signs Temp 97.1 F 01/25/25 06:37 Pulse 72 01/25/25 06:37 Resp 16 01/25/25 06:37 BP 152/91 H 01/25/25 06:37 Pulse Ox 98 01/25/25 06:37 O2 Del Method Room Air 01/25/25 06:37 BMI result Body Mass Index 46.9 GI: Inspection: Yes normal to inspection, Yes incision (clean, dry and intact) and Yes obesity Palpation (GI): Soft to palpation Extrem: Right lower extremity: normal to inspection (no calf tenderness) Left lower extremity: normal to inspection (no calf tenderness) Objective Data Active Medications Lactated Ringer's (Lr) 1,000 mls @ 100 mls/hr IVCONT .Q10H [facility] Last Admin: 01/25/25 06:45 Dose: 100 mls/hr Documented By: KAROLYN Lactated Ringer's (Lr) 1,000 mls @ 999 mls/hr IV .Q1H1M [facility] Stop: 01/25/25 08:15 Last Admin: 01/25/25 06:45 Dose: 999 mls/hr Documented By: KAROLYN Labs 01/26/25 05:14 01/26/25 05:14 Procedures Date of Service Date of Service: 01/26/25 Progress Note: A&P Assessment and plan (1) Morbid obesity: Status: Acute Assessment and Plan: s/p laparoscopic sleeve gastrectomy, lysis of adhesions, excision of gastric polyp and gastropexy Doing well Will check am labs and if OK the patient will be discharged home (2) Hypertension: Status: Acute (3) LVH (left ventricular hypertrophy): Status: Acute (4) S/P laparoscopic sleeve gastrectomy: Status: Acute (5) Gastric polyp: Status: Acute (6) Congenital intra-abdominal adhesions: Status: Acute Time Spent With Patient Time: Total time managing care of this patient today ____ minutes. Quality Stroke Does the patient have a stroke diagnosis?: No VTE Prior VTE?: No VTE Risk Level:: Medical - moderate - high VTE Device Contraindication: N/A - Device Ordered VTE Drug Contraindication: Treatment Not Indicated
--- NOTE | 2025-01-25 07:30 | PC.NURSE ---
Patient in preop. Instrument/Control Technician at bedside. During med rec patient states she stopped potassium supplement 15 days ago, per her, as she ran out . She states Dr. Rowland was made aware and told her this was okay. Dr. Love made aware. Last K from 01/08 was 3.1. No new orders at this time.
[2025-01-25] MEDS: ceFAZolin Sodium/Dextrose,Iso 2 GM/50 ML PIGGYBACK IV ×2 (07:59→13:54)
--- NOTE | 2025-01-25 10:27 | PM.DS ---
DS: Providers Provider Date of Service: 01/25/25 Date of discharge: 01/26/25 Primary care physician: Alyson Mojica MD DS: Diagnosis Discharge Diagnosis (1) Morbid obesity: Status: Acute (2) Hypertension: Status: Acute (3) LVH (left ventricular hypertrophy): Status: Acute DS: Summary Hospital Course Hospital Course: ADMITTING DIAGNOSIS: morbid obesity,?HTN, LVH, hypokalemia ? DISCHARGE DIAGNOSIS: same, s/p laparoscopic sleeve gastrectomy and gastropexy ? PAST SURGICAL HISTORY:? ? PROCEDURE: upper endoscopy, laparoscopic sleeve gastrectomy and repair of diaphragmatic hernia hernia ? DISCHARGE SUMMARY: ? History of Present Illness: ? The patient is a? 49? year-old woman with a BMI of? ?46.9 ? kg/m2 and associated co-morbidities as described above. The patient had extensive work-up, lost? ?56.7 ? lbs preoperatively and was electively scheduled for laparoscopic, possible open sleeve gastrectomy and gastropexy. Risks and complications of the surgery were discussed with the patient in advance, particularly the possibility of , pulmonary embolism, anastomotic leak, bleeding, bowel injury, GERD, cardiac, renal or pulmonary complications. The patient understood all the risks and was in agreement with the surgical plan. ? Hospital Course: ? The patient underwent an uneventful laparoscopic sleeve gastrectomy with gastropexy on the day of admission. Postoperatively, the patient was transferred to the surgical floor. The patient received IV Acetaminophen and IV dilaudid for pain control. Patient was started on bariatric phase 1 diet POD #0. On postoperative day one, the patient was feeling well without nausea, vomiting, fevers, or tachycardia. The patient had some mild incisional pain and the abdomen was soft.? ? On the morning of postoperative day one, the patient was continued on 1 ounce of water or ice every half hour. During the day, the patient did fairly well, having some incisional pain, but able to ambulate adequately and to tolerate liquids well. ? Since the patient is doing well, we decided that the patient was ready to be discharged. The patient was given instructions to follow-up with me next week and to call my office for any fever over 101, persistent abdominal pain, nausea, vomiting, GERD, symptoms of DVT such as calf tenderness, or leg swelling, or pulmonary embolism such as chest pain or shortness of breath.? The patient was also instructed to drink 40-60 ounces of liquids per day using the 1-ounce cups. The patient had been given prescriptions for Tylenol for pain, Zofran prn for nausea, and pantoprazole and carafate previously. The patient was encouraged to ambulate and use the incentive spirometer. The patient was allowed to shower, but no baths, and encouraged to stay active at home. All of these instructions were given to the patient personally. All questions were answered and the patient understood all instructions, the instructions were also given to the patient in print. Time Attestation Discharge Coordination Time (in mins): 30 Quality: Safe Use of Opioids Does Pt have an Active Cancer Diagnosis on the Problem List?: No Quality: Stroke Does the patient have a stroke diagnosis?: No Physical Exam Vital Signs: Vital Signs: Last Vital Signs Temp 97.9 F 01/25/25 10:15 Pulse 76 01/25/25 10:25 Resp 20 01/25/25 10:25 BP 148/84 H 01/25/25 10:25 Pulse Ox 95 01/25/25 10:25 O2 Del Method Nasal Cannula 01/25/25 10:25 O2 Flow Rate 2 01/25/25 10:25 BMI result Body Mass Index 46.9 DS: Data Data Completed and Pending Pending studies at discharge: Pending at discharge 01/25/25 09:54 Surgical [PTH] Routine Discharge Plan Discharge Anticipated Discharge Date/Time: 01/26/25 08:11 Patient Disposition: Home, Self-Care Discharge Diagnosis: s/p laparoscopic sleeve gastrectomy with gastropexy Referrals: Alyson Mojica MD [Primary Care Provider] - 1 Week Discharge Medications: Continued potassium chloride 20 mEq packet 20 meq PO DAILY Qty: 50 2RF pantoprazole 40 mg tablet,delayed release (DR/EC) 40 mg PO DAILY Qty: 90 0RF sucralfate 100 mg/mL suspension 10 ml PO BID Qty: 600 2RF ondansetron 4 mg tablet,disintegrating 4 mg PO Q12H Qty: 20 0RF Rx Instructions: Only take one every 12 hours as needed if you have nausea docusate sodium 100 mg capsule 100 mg PO BID Held hydrochlorothiazide 25 mg tablet 25 mg PO DAILY Hold Instructions: Resume on 01/27/25. Check your blood pressure every morning as soon as you wake up and send it to Dr. Strickland. Do no take the blood pressure medication if the blood pressure is below 120/70. Wait every day to hear back from Dr. Strickland before you take the medication. amlodipine 5 mg tablet 5 mg PO DAILY Hold Instructions: Resume on 01/27/25. Check your blood pressure every morning as soon as you wake up and send it to Dr. Strickland. Do no take the blood pressure medication if the blood pressure is below 120/70. Wait every day to hear back from Dr. Strickland before you take the medication. losartan 100 mg tablet 100 mg PO DAILY Hold Instructions: Resume on 01/26/25. Only resume according to parameters given by Dr. Strickland Discontinued cyanocobalamin (vitamin B-12) 1,000 mcg tablet, sublingual 1,000 mcg sublingual DAILY Qty: 90 0RF ferrous sulfate 325 mg (65 mg iron) tablet 325 mg PO DAILY Discharge Orders: Discharge Order (Routine); Ordered 01/26/25 Ordered By: Nolan Strickland Activity on Discharge: No heavy lifting Stand Alone Forms: Patient Portal Discharge page Print Language: [place] Care Plan Goals: weight loss Health Concerns: morbid obesity Plan of Treatment: No tub baths, sex or returning to work until discussed at first post op appointment. No alcohol, tobacco or illegal drug use. Continue to use incentive spirometer hourly while awake. Walk in home for 5- 10 minutes every 2 hours during the first week. Wear abdominal binder with activity. Follow all meal plan instructions from your bariatric surgeon. Review bariatric handbook and call with any questions. Discharge Instructions 1. Please call your doctor or come back to the emergency room should any new symptoms arise. 2. Activity: abstain from alcohol,? limited stair climbing, no bending, no driving, no exercise, no illicit substances, no lifting, no sex, no tub bath, no work. 4. Diet: follow your bariatric surgeons recommendations for advancing diet. 5. Dressing Change/Wound Care: Your incisions are covered with waterproof dressings. You can shower with these and pat dry. Do not rub over dressings or incisions. If the area is tender, you may apply an ice pack for short intervals (no more than 20 minutes on, followed by at least 20 minutes off). Do not apply heat. Do not use creams, lotions, or topical antibiotics unless instructed to do so by your surgeon. 6. Call your doctor if: - Your temperature exceeds 101.5 F - You experience excessive pain or swelling - You have an unexpected reaction to medication - You have excessive bleeding - You experience continued vomiting/nausea - Your incision begins to separate - Your incision shows signs of infection such as increased redness, swelling, excessive pain, heat, or drainage (light blood or clear fluid is normal) General instructions: No lifting greater than 10 lbs for the next 6 weeks[address] within 24 hours of taking narcotic pain medications. If you do not move your bowels in the next 2 days, please take milk of magnesia over the counter. Please follow the post op diet and do not advance your diet until you are seen in the office in about 2 weeks. Please walk around your home every hour or two to prevent blood clots from forming in your legs. You do not need to wake from sleeping to walk. Please sleep in a bed or couch to prevent kinking at the hips and knees. Please take your incentive spirometer (your lung bin packer) home with you and use it for the next few days to prevent pneumonias. You may shower, no hot tubs, baths or swimming pools. Please call the office with any questions or concerns such as increasing abdominal pain, fever, chills, shortness of breath, chest pain, leg pain or swelling, or redness or drainage from your incisions. Please make sure you are consuming 40-60 ounces of total fluids per day. Avoid all carbonation. Do not hesitate to contact the office with any questions at . The patient's medical history has been reviewed and they are considered low risk for post op DVT and therefore DVT prophylaxis is not considered necessary. Travel after surgery was reviewed. The patient has not disclosed any travel plans during the first 30 days after surgery and they have been advised that within the first 30 days after surgery any bus, plane, train or car travel over 2 hours in duration is contraindicated due to the possibility of developing blood clots from immobility. Any travel, needs to include periods of ambulation of 10 minutes in duration every 2 hours.? The patient was instructed to discuss any plans for travel during this period with their bariatric surgeon. Assessment: s/p laparoscopic sleeve gastrectomy with gastropexy Discharge Date/Time: 01/26/25 09:36
[2025-01-25 11:07] LABS: Hematocrit 36.4 % (37.0-47.0); Hemoglobin 12.2 g/dl (12.0-16.0)
[2025-01-25 11:19] LABS: Anion Gap 11 (12-20); Blood Urea Nitrogen 7 mg/dL (9-16); Calcium 9.3 mg/dL (8.4-10.2); Carbon Dioxide 25 mmol/L (22-29); Chloride 107 mmol/L (96-108); Creatinine Clr Calc Pharmacy 107.7; Estimated Glomerular Filt Rate > 60; Glucose Random 150 mg/dL (60-115); Sodium 140 mmol/L (135-145)
[2025-01-25] MEDS: Acetaminophen 1,000 MG/100 ML PIGGYBACK 16.7 MG IV ×2 (14:55→19:32)
[2025-01-25] MEDS: KCl 40 mEq in 0.9 % Sodium Chl 40 MEQ/1,000 ML IV.SOLN 125 MEQ IVCONT ×2 (14:55→22:28)
--- NOTE | 2025-01-25 15:19 | PHA.MEDREC ---
Pharmacy Consult ? Medication Reconciliation Pharmacy has reviewed the medication reconciliation completed by nursing. Pt states she is now on 25mg of HCTZ now, med list was updated.
[2025-01-25] MEDS: Famotidine/PF 20 MG/2 ML VIAL IVPUSH (20:57)
[2025-01-26] VITALS: BP 143/79; PULSE 79; RESP 18; TEMP 37; O2SAT 94
[2025-01-26] MEDS: Acetaminophen 1,000 MG/100 ML PIGGYBACK 16.7 MG IV (01:06)
[2025-01-26 03:49] VITALS: BP 143/84; PULSE 85; RESP 18; TEMP 37.4; O2SAT 96
[2025-01-26 05:50] LABS: MANUAL DIFF FLAG NO
[2025-01-26] MEDS: KCl 40 mEq in 0.9 % Sodium Chl 40 MEQ/1,000 ML IV.SOLN 125 MEQ IVCONT (05:51)
[2025-01-26 06:04] LABS: Hematocrit 34.4 % (37.0-47.0); Hemoglobin 11.7 g/dl (12.0-16.0); Imm Gran Abs Auto 0.03 X10*3/uL (0.00-0.03); Imm Gran Pct Auto 0.5 % (0.0-0.4); Lymphocytes Absolute Auto 0.7 X10*3/uL (1.2-4.9); Lymphocytes Percent Auto 11.3 % (20-40); Mean Corpuscular Hemoglobin 27.8 pg (27.0-33.0); Mean Corpuscular Volume 81.7 fL (80.0-98.0); Mean Platelet Volume 10.9 fL (9.4-12.3); Monocytes Absolute Auto 0.6 X10*3/uL (0.1-1.2); Monocytes Percent Auto 9.6 % (2-11); Neutrophils Absolute Auto 5.1 x10*3/uL (2.0-8.3); Neutrophils Percent Auto 78.6 % (45-73); Platelet Count 160 X10*3/uL (160-400); Red Blood Count 4.21 X10*6/uL (4.20-5.50); Red Cell Distribution Width 14.6 % (11.0-16.0); White Blood Count 6.4 X10*3/uL (4.8-10.8)
[2025-01-26 06:11] LABS: Anion Gap 11 (12-20); Blood Urea Nitrogen 7 mg/dL (9-16); Calcium 9.2 mg/dL (8.4-10.2); Carbon Dioxide 24 mmol/L (22-29); Chloride 111 mmol/L (96-108); Creatinine Clr Calc Pharmacy 121.3; Estimated Glomerular Filt Rate > 60; Glucose Random 105 mg/dL (60-115); Potassium 3.8 mmol/L (3.3-5.1); Sodium 142 mmol/L (135-145)
[2025-01-26] MEDS: Famotidine/PF 20 MG/2 ML VIAL IVPUSH (07:08)
[2025-01-26 07:31] VITALS: BP 143/80; PULSE 73; RESP 16; TEMP 36.3; O2SAT 97
--- NOTE | 2025-01-26 09:16 | MHC.CM.PN ---
CM MET WITH PT AT BEDSIDE WITH DETENTION SERGEANT. 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 PT DECLINES HCP COMPLETION AT THIS TIME. PCP DR. LAN. DP: PT HAS BEENMEDICALLY CLEARED FOR DC HOME, NO SERVICES. PT HAS OWN RIDE HOME.
--- NOTE | 2025-01-26 14:21 | HO.POSTANES ---
Post Anesthesia Evaluation Post Anesthesia Evaluation Date of Service: 01/26/25 Vital Signs: Vital Signs Temp Pulse Resp BP Pulse Ox O2 Del Method 01/26/25 07:31 97.4 F 73 16 143/80 H 97 Room Air 01/26/25 03:49 99.4 F 85 18 143/84 H 96 Room Air Anesthesia: General Endotracheal-GETA Mental Status: Awake Pain Control: Satisfactory Nausea/Vomiting: None Hydration: Adequate Anesthesia-Related Issues: No Anes. Related Issues
== END 2025-01-26 09:36 | disposition home or self-care (01) | DRG 403 ==
LOC: HO.EDOVER 10:43 → HO.S3 11:08
PROVIDERS: Physician Assistant Surgical; Admitting Provider Surgery; PCP Internal Medicine; Visit Provider Surgery
PROC: 0DB64Z3 Excision of Stomach, Percutaneous Endoscopic Approach, Vertical (ICD-10-PCS; CPT 43845; principal; 2025-01-25 07:30)
DX: E66.01 Morbid (severe) obesity due to excess calories (principal); I11.9 Hypertensive heart disease without heart failure; Q43.3 Congenital malformations of intestinal fixation; Z68.42 Body mass index [BMI] 45.0-49.9, adult; K31.7 Polyp of stomach and duodenum; Z79.899 Other long term (current) drug therapy
CPT/HCPCS: 36415; 80048; 80053; 80061; 83036; 83525; 84443; 85014; 85018; 85025; 85610; 85730; 86140; 86850; 86900; 86901; 88304; 88305; 88307; 88342; A4649; C9145; J0131; J0690; J1100; J1171; J1596; J2003; J2250; J2405; J2704; J2795; J3010; J3480; J7120

== ENCOUNTER 2025-02-03 10:12 | Outpatient (AMB) | payer OTHER, SELFPAY ==
--- NOTE | 2025-02-03 10:13 | A.OFFVIS_ITS ---
VS Expanded 02/03/25 10:15 BP 137/71 Blood Pressure Location Rt brachial Blood Pressure Position Sitting Pulse 78 Pulse Source Pulse Oximeter Temp 97.0 F Temperature Source Temporal Artery Scan Pulse Oximetry 100 Oxygen Delivery Method Room Air Height 5 ft 7 in Weight 283 lb 3.2 oz BMI 44.4 Body Fat % 51.2 Body Fat Mass 145.0 Fat Free Mass 138.0 Visceral Fat Rating 17.0 Body Water % 34.7 Body Water Mass 98.4 Muscle Mass/Score 131.0 Basal Metabolic Rate/Score 1,990 Intake Visit Reasons: OV PO LSG 01/25/2025 Employer Relations Representative Required: Yes Employer Relations Representative Services: Employer Relations Representative Present Employer Relations Representative Name: hospital cmi Allergies No Known Allergies Allergy (Verified 02/03/25 10:17) HPI Comments Details: Patient is a 49-year-old female who returns to the office today in follow-up. She is 9 days post sleeve gastrectomy performed on 01/25/2025. Tolerating 3 orgain shakes with 2 scoops each and 30 oz of fluid in addition. She has moved her bowels. Denies any pain. [facility] Medical History Hypertension Morbid obesity Surgical History (Updated 02/03/25 @ 10:18 by Shantel Vera CMA) S/P laparoscopic sleeve gastrectomy History of esophagogastroduodenoscopy (EGD) Hx of section Family History Mother No problems noted. Father No problems noted. Daughter No problems noted. Daughter No problems noted. Son No problems noted. Social History Household Members: Family Housing: House Are you a primary patient care technician to a significant other at home: No Do you presently have visiting nurse or other home services: No Alcohol intake: never Patient Tobacco Use Status: Never used Tobacco Second Hand Smoke Exposure: No service: No Physical Exam Vital Signs: Last Vital Signs Temp 97.0 F 02/03/25 10:15 Pulse 78 02/03/25 10:15 BP 137/71 02/03/25 10:15 Pulse Ox 100 02/03/25 10:15 Oxygen Delivery Method Room Air 02/03/25 10:15 BMI result Body Mass Index 44.4 GI Inspection: Yes incision (Clean, dry, intact.) Assessment & Plan Assessment & Plan (1) S/P laparoscopic sleeve gastrectomy: Code(s): Z98.84 - Bariatric surgery status Category: Surgical Plan: POD 9 s/p LSG on 01/25/[address] Strickland Weight loss prior to surgery was 56.7 pounds or 22 % TBWL. Original weight on 09/18/2024 was 356.6 pounds and op weight was 299.9 pounds. Be sure to text Dr Strickland exactly 1 week after surgery your weight from your home scale so he can adjust your meal plan. Continue meal plan until f/u w Nancy in 2 weeks May shower, no submersion in bath for another week Continue abdominal binder with activity and exercise for the next 2 weeks. Exercise prior to surgery was walking and treadmill and may resume No abdominal exercises for 6 weeks post operatively Will be emailed link to post op video for review Reminded of the pace of drinking, 2 mL per minute, 1 oz/15 min. Of note, patient's pathology revealed widespread intestinal metaplasia and recommendation is going to be for surveillance endoscopies. She should have an endoscopy in approximately 6 months with further frequency to be determined at that time.
[2025-02-03 10:15] VITALS: BP 137/71; PULSE 78; TEMP 36.1; O2SAT 100; BMI 44.4
--- OUTSIDE RECORDS SUMMARY | 2025-02-03 11:50 | XMS_ITS | Clinical Summary ---
Author Organization [facility] Address [address] [place] [address] Phone Care Team Providers Care [facility]omens Health Nurse Practitioner Name Role Phone Alyson Mojica MD Primary Care Provider [phone] Allergies No known active allergies Medications losartan [...] Description 11/06/2024 9:55 AM EST Anesthesia Event [facility] [address] [place] [address] Jane Li MD 11/06/2024 9:17 AM EST - 11/06/2024 11:59 PM EST Hospital Encounter [facility] [address] [place] [address] Danyelle Bautista DO Special screening for malignant neoplasms, colon Discharge Disposition: Home or Self Care from [...] care for your loved ones. For example, children's book author or elderly care for an older adult? [...] Procedure Name Priority Date/Time Associated Diagnosis Comments EXTERNAL XRAY REPORT 12/18/2024 EXTERNAL XRAY REPORT 12/18/2024 COLONOSCOPY Routine 11/06/2024 10:12 AM EST Special screening for malignant neoplasms, colon TISSUE EXAM Routine 11/06/2024 10:09 AM EST Special screening for malignant neoplasms, colon BASIC METABOLIC PANEL Routine 10/19/2024 2:12 PM EST Primary hypertension Anemia, unspecified type MG MAMMO DIAGNOSTIC ADDL VIEWS RIGHT Routine 09/15/2024 3:48 PM EST Masses of both breasts HM HPV Routine 08/17/2024 LIPID PANEL Routine 05/26/2024 from Last 3 Months or Most Recently Relevant to Health Maintenance Results * External Xray Report (12/18/2024) Only the most recent of2 resultswithin the time period is included. Anatomical Region Laterality Modality Radiographic Diamond ging us Provider [facility] XR PROCEDURES Final Result * COLONOSCOPY Anesthesia - MAC; [facility] ENDOSCOPY (11/06/2024 10:12 AM EST) [...] pathology results. Narrative 11/06/2024 10:17 AM EST [facility] GI Patient Name: Rupinder Rico Procedure Date: 11/06/2024 10:14 AM Date of : 1975 Age: 49 Gender: Female Note Status: Finalized Attending MD: Danyelle Bautista DO, [id number] Procedure Date No Time: 11/06/2024 Procedure: ? [...] physician, the nurse, the ? anesthesiologist, the weatherization installer and the robotic technician ? in the pre-procedure area in [...] Procedure Code(s): ? --- Professional --- ? 29694, Colonoscopy, flexible; with removal of ? tumor(s), polyp(s), or other lesion(s) by snare ? technique Diagnosis Code(s): ? --- Professional --- ? D12.5, Benign neoplasm of sigmoid colon ? K64.9, Unspecified hemorrhoids ? Z12.11, Encounter for screening for malignant neoplasm ? of colon CPT copyright 2020 [employer]. All rights reserved. The codes documented in this report are preliminary and upon surgical coder review may be revised to meet current compliance requirements. DANYELLE Bautista DO 11/06/2024 10:16:58 AM This report has been signed electronically.Danyelle Bautista DO Number of Addenda: 0 Note Initiated On: 11/06/2024 10:14 AM ? Endoscopy Department at [facility] - [address] [place] [address], ? [place] [address] Procedure Note Danyelle Bautista DO - 11/06/2024 [facility] Patient Name: Rupinder Rico Procedure Date: 11/06/2024 10:14 AM Date of : 1975 Age: 49 Gender: Female Note Status: Finalized Attending MD: Danyelle Bautista DO, [id number] Procedure Date No Time: 11/06/2024 Procedure: Colonoscopy [...] the physician, the nurse, the anesthesiologist, the weatherization installer and thetechnician in the pre-procedure area in [...] retroflexion views. Procedure Code(s): --- Professional --- 94049, Colonoscopy, flexible; with removal of tumor(s), polyp(s), or other lesion(s) by snare technique Diagnosis Code(s): --- Professional --- D12.5, Benign neoplasm of sigmoid colon K64.9, Unspecified hemorrhoids Z12.11, Encounter for screening for malignantneoplasm of colon CPT copyright 2020 [employer]. All rights reserved. The codes documented in this report are preliminary and upon surgical coder reviewmay be revised to meet current compliance requirements. DANYELLE Bautista DO 11/06/2024 10:16:58 AM This report has been signed electronically.Danyelle Bautista DO Number of Addenda: 0 Note Initiated On: 11/06/2024 10:14 AM Endoscopy Department at [facility] - [address] [place] [id number] IMPRESSION: - Hemorrhoids found on perianal exam. [...] AM EST 11/06/2024 11:57 AM EST Danyelle Bautista DO LAB PATHOLOGY ORDERABLES Final R esult [facility] [address] [place] [address], [place] [phone] * (ABNORMAL) Basic metabolic panel (10/19/2024 2:12 PM EST) Sodium 141 133 - 145 mmol/L LAB [...] LAB CHEMISTRY METHOD 10/19/2024 8:47 PM EST [facility] Blood Venous blood specimen / Unknown Venipuncture / Unknown 10/19/2024 2:12 PM EST 10/19/2024 2:12 PM EST us Alyson Mojica MD LAB BLOOD ORDERABLES Final Res ult [facility] [address] [place] [address], [place] [phone] * MG Mammo Diagnostic Addl Views Right [...] Mammogram performed at [facility] [address] [place] [address] -------- FINAL REPORT -------- Dictated By: Jacqueline Ruggiero Dictated Date: 09/22/2024 13:58 ET Assigned Physician: Jacqueline Ruggiero Reviewed and Electronically Signed By: Jacqueline Ruggiero Signed Date: 09/22/2024 14:10 ET Workstation ID: [id number] Transcribed By: Self Edit Transcribed Date: 09/22/2024 [...] at 8:00, close to the skin line, [id number] cm from the nipple, a 20 mm [...] Mammogram performed at [facility] at [address] [address] -------- FINAL REPORT -------- Dictated By: Jacqueline Ruggiero Dictated Date: 09/22/2024 13:58 ET Assigned Physician: Jacqueline Ruggiero Reviewed and Electronically Signed By: Jacqueline Ruggiero Signed Date: 09/22/2024 14:10 ET Workstation ID: [id number] Transcribed By: Self Edit Transcribed Date: 09/22/2024 13:58 ET Eden Vasquez CNM IMG BI PROCEDURES Final Result * Cervical Cancer Screening: HPV (08/17/2024) Pathologist [facility] Cervical Cancer Screening: HPV normal, abstracted Historical [...] Most Recently Relevant to Health Maintenance Insurance [address] [address] HEALTH PLAN Care Teams Womens Health Nurse Practitioner Relationship Specialty Start Date End Date Alyson Mojica MD [address] [phone] PCP - General 05/21/24
== END 2025-02-03 10:57 | disposition home or self-care (01) ==
LOC: HO.HBS 10:12
PROVIDERS: PCP Internal Medicine; Visit Provider Physician Assistant Surgical
DX: Z98.84 Bariatric surgery status (principal)
CPT/HCPCS: 99024

== ENCOUNTER → 2025-02-03 10:12 | Outpatient (BNVA) | payer OTHER, SELFPAY | PROVIDERS: PCP Internal Medicine; Visit Provider Physician Assistant Surgical | DX: Z48.815 Encounter for surgical aftercare following surgery on the digestive system (principal); Z98.84 Bariatric surgery status | CPT/HCPCS: 99212 ==

== ENCOUNTER 2025-02-05 11:49 | Outpatient (AMB) | payer OTHER, SELFPAY ==
--- NOTE | 2025-02-05 12:15 | A.OFFWM_ITS ---
Intake Intake Visit Reasons: OV PO LSG 01/25/2025 Allergies No Known Allergies Allergy (Verified 02/03/25 10:17) PFSH Medical History Hypertension Morbid obesity Surgical History (Updated 02/03/25 @ 10:18 by Shantel Vera CMA) S/P laparoscopic sleeve gastrectomy History of esophagogastroduodenoscopy (EGD) Hx of section Family History Mother No problems noted. Father No problems noted. Daughter No problems noted. Daughter No problems noted. Son No problems noted. Social History Household Members: Family Housing: House Are you a primary healthcare administration internship to a significant other at home: No Do you presently have visiting nurse or other home services: No Alcohol intake: never Patient Tobacco Use Status: Never used Tobacco Second Hand Smoke Exposure: No service: No Behavioral Health Assessment Weight Management Therapy Therapy Notes Details Subjective: Patient is status-post bariatric surgery on 01/25/2025. She reports doing well overall, denying any physical pain or complications related to recovery. 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 Patient was unaware of her eligibility for [place] and has been using her vacation time, which is now nearly depleted. Objective: Patient presents in person for post-operative behavioral health support. * Conducted a guided emotional check-in to assess mood, stress levels, and emotional adjustment following surgery. * Provided psychoeducation on typical emotional and psychological responses in the post-bariatric phase, including fluctuations in mood, energy, and body image adaptation. * Administered PHQ-9 to screen for depressive symptoms. * Reinforced the importance of pacing during the post-op recovery period and adhering to provider guidance, cautioning against resuming physical duties prematurely. * Reviewed PFMLA eligibility and provided resources, including program forms and a local support group (Facebook-based) for post-op bariatric patients. * Printed necessary medical leave documents and coordinated with the program RN to assist in submission, supporting patient?s request for extended time off based on her physical job demands. Assessment/Response: * Mental Status: Mild worry present, but patient appears emotionally stable and engaged. No signs of acute distress. Good insight and functional capacity. * Risk Reported/Identified: None reported or observed. No current suicidal ideation, self-harm, or safety concerns. Food/Weight/Diet Expectations of change Initial weight PRe-op: 356Lbs Surgery day weight: 299Lbs 7 dayst PO: 283 lb PO weight 02/03/25: 282Lbs Meal plan: 4 shakes, approx. 60oz of water Excercise: Stationary bike. Questionnaires PHQ-9 Over the last 2 weeks, how often have you been bothered by any of the following problems? 1. Little interest or pleasure in doing things: not at all 2. Feeling down, depressed, or hopeless: not at all 3. Trouble falling or staying asleep, or sleeping too much: not at all 4. Feeling tired or having little energy: several days 5. Poor appetite or overeating: not at all 6. Feeling bad about yourself - or that you are a failure or have let yourself or your family down: several days 7. Trouble concentrating on things, such as reading the newspaper or watching television: not at all 8. Moving or speaking so slowly that other people could have noticed. Or the opposite - being so fidgety or restless that you have been moving around a lot more than usual: not at all 9. Thoughts that you would be better off or of hurting yourself in some way: not at all Total score: 2 Depression Screening Interpretation: Negative Depression Screening Done: Yes 13232 - PHQ-9 Billing: Yes Source: Developed by Drs. Jonathan Jaimes, Eliana Lou, Jamison Newberry and colleagues, with an educational autumn from [employer]. Assessment & Plan Assessment & Plan (1) Adjustment disorder, unspecified: Code(s): F43.20 - Adjustment disorder, unspecified Plan * Encourage continued emotional monitoring and support use of coping strategies discussed. * PT to Follow up with RN later today or tomorrow regarding PFMLA paperwork and [id number] planning. * Continue routine weekly check-ins W/ Dr Balbuena via Text message. * PT declined a f/up visit, but is aware BH services are available to her if in need. Coding Level of Care Code Established Pt Tele Psytx 45 mins (80971) Patient Type Established Diagnoses Adjustment disorder, unspecified F43.20 Additional Codes PHQ-9 - 10407 - PHQ-9 Billing: Yes ([id number]) Time Spent (min) 45
--- OUTSIDE RECORDS SUMMARY | 2025-02-05 13:52 | XMS_ITS | Clinical Summary ---
Author Organization [facility] Address [address] [place] [address] Phone Care Team Providers Care Claims Agent Right Of Way Name Role Phone Alyson Mojica MD Primary Care Provider [phone] Allergies No known active allergies Medications losartan [...] 09/15/2024 Morbid obesity 09/15/2024 Primary hypertension 09/15/2024 Surgical History Surgery Date Site/Laterality Comments SECTION [...] care for your loved ones. For example, child care provider or elderly care for an older adult? [...] Final Result * COLONOSCOPY Anesthesia - MAC; [facility] ENDOSCOPY (11/06/2024 10:12 AM EST) Anatomical Region [...] pathology results. Narrative 11/06/2024 10:[address] [facility] Patient Name: Rupinder Rico Procedure Date: 11/06/2024 10:14 AM Date of : 1975 Age: 49 Gender: Female Note Status: Finalized Attending MD: Danyelle Bautista DO, [id number] Procedure Date No Time: 11/06/2024 Procedure: ? [...] physician, the nurse, the ? anesthesiologist, the civil defense director and the biodiesel production technician ? in the pre-procedure area in [...] Procedure Code(s): ? --- Professional --- ? 16527, Colonoscopy, flexible; with removal of ? tumor(s), polyp(s), or other lesion(s) by snare ? technique Diagnosis Code(s): ? --- Professional --- ? D12.5, Benign neoplasm of sigmoid colon ? K64.9, Unspecified hemorrhoids ? Z12.11, Encounter for screening for malignant neoplasm ? of colon CPT copyright 2020 [employer] [place] [employer]. All rights reserved. The codes documented in this report are preliminary and upon set up mechanic stamping machines review may be revised to meet current compliance requirements. DANYELLE Bautista DO 11/06/2024 10:16:58 AM This report has been signed electronically.Danyelle Bautista DO Number of Addenda: 0 Note Initiated On: 11/06/2024 10:14 AM ? Endoscopy Department at [facility] - [address] [place] [address], ? [place] [address] Procedure Note Danyelle Bautista DO - 11/06/2024 [facility] Patient Name: Rupinder Rico Procedure Date: 11/06/2024 10:14 AM Date of : 1975 Age: 49 Gender: Female Note Status: Finalized Attending MD: Danyelle Bautista DO, [id number] Procedure Date No Time: 11/06/2024 Procedure: Colonoscopy [...] the physician, the nurse, the anesthesiologist, the civil defense director and thetechnician in the pre-procedure area in [...] retroflexion views. Procedure Code(s): --- Professional --- 98273, Colonoscopy, flexible; with removal of tumor(s), polyp(s), or other lesion(s) by snare technique Diagnosis Code(s): --- Professional --- D12.5, Benign neoplasm of sigmoid colon K64.9, Unspecified hemorrhoids Z12.11, Encounter for screening for malignantneoplasm of colon CPT copyright 2020 [employer] [place] [employer]. All rights reserved. The codes documented in this report are preliminary and upon set up mechanic stamping machines reviewmay be revised to meet current compliance requirements. DANYELLE Bautista DO 11/06/2024 10:16:58 AM This report has been signed electronically.Danyelle Bautista DO Number of Addenda: 0 Note Initiated On: 11/06/2024 10:14 AM Endoscopy Department at [facility] - [address] [place] [phone] IMPRESSION: - Hemorrhoids found on perianal exam. - One 12 mm polyp in the sigmoid colon, removedwith a hot snare. Resected and retrieved. - The examination was otherwise normal on directand retroflexion views. Recommendation: - - Discharge patient to home. - High fiber diet. - Continue present medications. - Await pathology results. - Repeat colonoscopy for surveillance based on pathology results. Danyelle Michele DO GI~PROCEDURE ORDERABLES Final Re sult * (ABNORMAL) Basic metabolic panel (10/19/2024 2:12 PM EST) Sodium 141 133 - 145 mmol/L LAB CHEMISTRY METHOD 10/19/2024 8:[address] [facility] Potassium 3.4(L) 3.5 - 5.5 mmol/L LAB CHEMISTRY METHOD 10/19/2024 8:[address] [facility] Chloride 107 96 - 110 mmol/L LAB CHEMISTRY METHOD 10/19/2024 8:[address] [facility] CO2 28 21 - 32 mmol/L LAB CHEMISTRY METHOD 10/19/2024 8:[address] [facility] Anion Gap 6 3 - 11 LAB CHEMISTRY METHOD 10/19/2024 8:[address] [facility] Glucose 103(H) 70 - 100 mg/dL LAB CHEMISTRY METHOD 10/19/2024 8:[address] [facility] BUN 17 5 - 25 mg/dL LAB CHEMISTRY METHOD 10/19/2024 8:[address] [facility] Creatinine 1.05 0.50 - 1.10 mg/dL LAB CHEMISTRY METHOD 10/19/2024 8:[address] [facility] eGFR 64 >=60 mL/min/1. 73m2 LAB CHEMISTRY METHOD 10/19/2024 8:[address] [facility] Comment:Calculation based on the??Chronic Kidney Disease Epidemiology Collaboration (CKD-EPI) equation refit??without adjustment for race. BUN/Creatinine Ratio 16.2 LAB CHEMISTRY METHOD 10/19/2024 8:[address] [facility] Calcium 9.6 8.5 - 10.5 mg/dL LAB CHEMISTRY METHOD 10/19/2024 8:[address] [facility] Blood Venous blood specimen / Unknown Venipuncture / Unknown 10/19/2024 2:12 PM EST 10/19/2024 2:12 PM EST us Alyson Mojica MD LAB BLOOD ORDERABLES Final Res ult [facility] [address] [place] [address], * MG Mammo Diagnostic Addl Views Right [...] Mamm[facility] performed at [facility] [address] [place] [address] -------- FINAL REPORT -------- Dictated By: Jacqueline Ruggiero Dictated Date: 09/22/2024 13:58 ET Assigned Physician: Jacqueline Ruggiero Reviewed and Electronically Signed By: Jacqueline Ruggiero Signed Date: 09/22/2024 14:10 ET Workstation ID: [id number] Transcribed By: Self Edit Transcribed Date: 09/22/2024 [...] at 8:00, close to the skin line, [id number] cm from the nipple, a 20 mm [...] Mamm[facility] [place] [address] -------- FINAL REPORT -------- Dictated By: Jacqueline Ruggiero Dictated Date: 09/22/2024 13:58 ET Assigned Physician: Jacqueline Ruggiero Reviewed and Electronically Signed By: Jacqueline Ruggiero Signed Date: 09/22/2024 14:10 ET Workstation ID: [id number] Transcribed By: Self Edit Transcribed Date: 09/22/2024 13:58 ET Eden Christina CNM IMG BI PROCEDURES Final Result * [...] Most Recently Relevant to Health Maintenance Insurance HEALTH PLAN Care Teams Claims Agent Right Of Way Relationship Specialty Start Date End Date Alyson Mojica MD [address] [phone] PCP - General 05/21/24
== END 2025-02-05 13:11 | disposition home or self-care (01) ==
LOC: HO.HBST 11:49
PROVIDERS: PCP Internal Medicine; Visit Provider Counselor Mental Health
DX: F43.20 Adjustment disorder, unspecified (principal)
CPT/HCPCS: 90834

== ENCOUNTER 2025-02-25 12:37 | Outpatient (AMB) | payer OTHER, SELFPAY ==
--- NOTE | 2025-02-25 12:22 | A.OFFVIS_ITS ---
VS Expanded 02/25/25 12:29 Height 5 ft 7 in Weight 271 lb BMI 42.4 Intake Visit Reasons: TV PO LSG 01/25/2025 Structural Steel Worker Helper Required: Yes Structural Steel Worker Helper Name: Jocelyn [id number] Severino Information Interpreted: clinical only Allergies No Known Allergies Allergy (Verified 02/03/25 10:17) Medication List - Last Reconciled 02/25/25 by LOUIS Yang amlodipine 5 mg PO DAILY docusate sodium 100 mg PO BID hydrochlorothiazide 25 mg PO DAILY losartan 100 mg PO DAILY ondansetron 4 mg PO Q12H pantoprazole 40 mg PO DAILY potassium chloride 20 mEq PO DAILY sucralfate 10 mL PO BID HPI Comments Details: This?is a?49?yo female who is s/p LSG 01/25/2025. Presents for 1 mo post op visit. Weight at last visit 3w ago was 283.2 pounds with a BMI of 44.4, weight today is 271 pounds, representing a 12.2 pound weight loss with a BMI today of 42.4.? Reports some nausea with vitamins and sometimes with protein shakes. Complains that even after changing shakes they are too sweet. States she has been taking 1oz q15min just like she was told. Amlodipine, HCTZ, losartan on hold. Pt monitoring BP at home. Present meal plan includes: Premier premade shake mixed with almond milk x 3 1 protein bar Exercise routine includes: bike, walking outside, trying to burn 2000 june/week PFSH Medical History Hypertension Morbid obesity Surgical History (Updated 02/03/25 @ 10:18 by Shantel Vera CMA) S/P laparoscopic sleeve gastrectomy History of esophagogastroduodenoscopy (EGD) Hx of section Family History Mother No problems noted. Father No problems noted. Daughter No problems noted. Daughter No problems noted. Son No problems noted. Social History Household Members: Family Housing: House Are you a primary patient centered care specialist to a significant other at home: No Do you presently have visiting nurse or other home services: No Alcohol intake: never Patient Tobacco Use Status: Never used Tobacco Second Hand Smoke Exposure: No service: No Telehealth Telehealth Telehealth Platform: Telephone Location of provider rendering services: practice address Location of patient: address on file Patient Identification confirmed using: Name, : Yes Telehealth method: voice only Patient verbally consented to treatment: Yes Patient verbally consented to billing insurance company: Yes Patient informed of any privacy concerns related to visit: Yes Minutes spent on Phone/Video with Pt.: 16 Assessment & Plan Assessment & Plan (1) S/P laparoscopic sleeve gastrectomy: Code(s): Z98.84 - Bariatric surgery status Category: Surgical (2) Morbid obesity: Code(s): E66.01 - Morbid (severe) obesity due to excess calories Category: Medical Plan Continue weekly communication with Dr Balbuena. She will let him know she is having difficulty tolerating current plan. Offered refill of zofran but she declined. Reviewed activity restrictions until 6w postop. Continue to monitor BP. RTC 1 month.
[2025-02-25 12:29] VITALS: BMI 42.4
--- OUTSIDE RECORDS SUMMARY | 2025-02-25 14:50 | XMS_ITS | Clinical Summary ---
Author Organization [facility] Address [address] [place] [address] Phone Care Team Providers Care Pediatric Dental Assistant Name Role Phone Alyson Mojica MD Primary Care Provider [phone] Allergies No known active allergies Medications losartan (COZAAR) 100 mg tablet Take 1 tablet (100 mg total) by mouth 1 (one) time each day. Take 1 Tablet by mouth daily. 90 tablet 2 09/23/20 24 Active amLODIPine (NORVASC) 5 mg tablet Take [...] DAY 60 capsule 5 12/01/19 25 Active hydroCHLOROthi azide (HYDRODIURIL) 25 mg tablet TAKE 1 TABLET BY MOUTH 1 TIME EACH DAY. 90 tablet 1 02/10/20 25 Active hydroCHLOROthi azide (HYDRODIURIL) 25 mg tablet Take 1 tablet (25 mg total) by mouth 1 (one) time each day. 30 each 5 09/23/20 24 025 Discontinued Active Problems Problem Noted Date Diagnosed Date Constipation 09/15/2024 Morbid obesity ([facility] V24, [facility] V28) 2023 Primary hypertension 09/15/2024 Surgical History Surgery Date Site/Laterality Comments SECTION N/A PROCEDURE: HISTORICAL DELIVERY TUBAL LIGATION PROCEDURE: HISTORICAL TUBAL LIGATION Medical History Medical History Date Comments HTN (hypertension) DX:HTN (hyper tension) Chronic constipation Morbid obesity ([facility] V24, [facility] V28) Family History Medical History Relation Name Comments [...] for your loved ones. For example, child and family services worker or elderly care for an older adult? [...] 06/05/2024 Hepatitis C Screening 06/05/2024 COVID-19 Vaccine ( - 2023-2 5 season) 2024 Influenza Vaccine (Season Ended) 2025 Depression Screening 10/19/2025 10/19/2024 Hypertension/CHF/CAD Annual BMP [...] age to complete this topic Meningococcal B Vaccine Aged Out No l onger eligible based on patient's age to complete [...] Final Result * COLONOSCOPY Anesthesia - MAC; [facility] ENDOSCOPY (11/06/2024 10:12 AM EST) [...] pathology results. Narrative 11/06/2024 10:17 AM EST [facility] Patient Name: Rupinder Rico Procedure Date: 11/06/2024 10:14 AM Date of : 1975 Age: 49 Gender: Female Note Status: Finalized Attending MD: Danyelle Bautista DO, [id number] Procedure Date No Time: 11/06/2024 Procedure: ? [...] physician, the nurse, the ? anesthesiologist, the re examiner and the home appliance technician ? in the pre-procedure area in [...] Procedure Code(s): ? --- Professional --- ? 33284, Colonoscopy, flexible; with removal of ? tumor(s), polyp(s), or other lesion(s) by snare ? technique Diagnosis Code(s): ? --- Professional --- ? D12.5, Benign neoplasm of sigmoid colon ? K64.9, Unspecified hemorrhoids ? Z12.11, Encounter for screening for malignant neoplasm ? of colon CPT copyright 2020 [employer]. All rights reserved. The codes documented in this report are preliminary and upon broadcast technician review may be revised to meet current compliance requirements. DANYELLE Bautista DO 11/06/2024 10:16:58 AM This report has been signed electronically.Danyelle Bautista DO Number of Addenda: 0 Note Initiated On: 11/06/2024 10:14 AM ? Endoscopy Department at [facility] - [address] [place] [address], ? [place] [address] Procedure Note Danyelle Bautista DO - 11/06/2024 [facility] GI Patient Name: Rupinder Rico Procedure Date: 11/06/2024 10:14 AM Date of : 1975 Age: 49 Gender: Female Note Status: Finalized Attending MD: Danyelle Bautista DO, [id number] Procedure Date No Time: 11/06/2024 Procedure: Colonoscopy [...] the physician, the nurse, the anesthesiologist, the re examiner and thetechnician in the pre-procedure area in [...] retroflexion views. Procedure Code(s): --- Professional --- 53914, Colonoscopy, flexible; with removal of tumor(s), polyp(s), or other lesion(s) by snare technique Diagnosis Code(s): --- Professional --- D12.5, Benign neoplasm of sigmoid colon K64.9, Unspecified hemorrhoids Z12.11, Encounter for screening for malignantneoplasm of colon CPT copyright 2020 [employer]. All rights reserved. The codes documented in this report are preliminary and upon broadcast technician reviewmay be revised to meet current compliance requirements. DANYELLE Bautista DO 11/06/2024 10:16:58 AM This report has been signed electronically.Danyelle Bautista DO Number of Addenda: 0 Note Initiated On: 11/06/2024 10:14 AM Endoscopy Department at [facility] - [address] [place] [phone] IMPRESSION: - Hemorrhoids found on perianal exam. [...] mmol/L LAB CHEMISTRY METHOD 10/19/2024 8:47 PM [facility] Potassium 3.4(L) 3.5 - 5.5 mmol/L LAB CHEMISTRY METHOD 10/19/2024 8:47 PM [facility] Chloride 107 96 - 110 mmol/L LAB CHEMISTRY METHOD 10/19/2024 8:47 PM [facility] CO2 28 21 - 32 mmol/L LAB CHEMISTRY METHOD 10/19/2024 8:47 PM [facility] Anion Gap 6 3 - 11 LAB CHEMISTRY METHOD 10/19/2024 8:47 PM [facility] Glucose 103(H) 70 - 100 mg/dL LAB CHEMISTRY METHOD 10/19/2024 8:47 PM [facility] BUN 17 5 - 25 mg/dL LAB CHEMISTRY METHOD 10/19/2024 8:47 PM [facility] Creatinine 1.05 0.50 - 1.10 mg/dL LAB CHEMISTRY METHOD 10/19/2024 8:47 PM [facility] eGFR 64 >=60 mL/min/1. 73m2 LAB CHEMISTRY METHOD 10/19/2024 8:47 PM [facility] Comment:Calculation based on the??Chronic Kidney Disease Epidemiology Collaboration (CKD-EPI) equation refit??without adjustment for race. BUN/Creatinine Ratio 16.2 LAB CHEMISTRY METHOD 10/19/2024 8:47 PM EST [facility] Calcium 9.6 8.5 - 10.5 mg/dL LAB CHEMISTRY METHOD 10/19/2024 8:47 PM EST [facility] Blood Venous blood specimen / Unknown Venipuncture / Unknown 10/19/2024 2:12 PM EST 10/19/2024 2:12 PM EST us Alyson Mojica MD LAB BLOOD ORDERABLES Final Res ult [facility] [address] [place] [address], [place] [phone] * MG Mammo Diagnostic Addl Views Right [...] Mammogram performed at [facility] [address] [place] [address] -------- FINAL REPORT -------- Dictated By: Jacqueline Ruggiero Dictated Date: 09/22/2024 13:58 ET Assigned Physician: Jacqueline Ruggiero Reviewed and Electronically Signed By: Jacqueline Ruggiero Signed Date: 09/22/2024 14:10 ET Workstation ID: [id number] Transcribed By: Self Edit Transcribed Date: 09/22/2024 [...] at 8:00, close to the skin line, [id number] cm from the nipple, a 20 mm [...] Mammogram performed at [facility] at [address] [address] -------- FINAL REPORT -------- Dictated By: Jacqueline Ruggiero Dictated Date: 09/22/2024 13:58 ET Assigned Physician: Jacqueline Ruggiero Reviewed and Electronically Signed By: Jacqueline Ruggiero Signed Date: 09/22/2024 14:10 ET Workstation ID: [id number] Transcribed By: Self Edit Transcribed Date: 09/22/2024 [...] Health Maintenance Insurance HEALTH PLAN Care Teams Pediatric Dental Assistant Relationship Specialty Start Date End Date Alyson Mojica MD [address] [place] [phone] PCP - General 05/21/24
== END 2025-02-25 12:51 | disposition home or self-care (01) ==
LOC: HO.HBS 12:37
PROVIDERS: PCP Internal Medicine; Visit Provider Physician Assistant Surgical
DX: E66.01 Morbid (severe) obesity due to excess calories (principal); Z68.41 Body mass index [BMI] 40.0-44.9, adult; Z98.84 Bariatric surgery status
CPT/HCPCS: 99024

== ENCOUNTER → 2025-02-25 12:37 | Outpatient (BNVA) | payer OTHER, SELFPAY | PROVIDERS: PCP Internal Medicine; Visit Provider Physician Assistant Surgical ==

== ENCOUNTER 2025-04-19 11:10 | Outpatient (AMB) | payer OTHER, SELFPAY ==
--- NOTE | 2025-04-19 11:04 | MHC.OFFVISWM ---
VS Expanded 04/19/25 11:11 Height 5 ft 7 in Weight 249 lb BMI 39.0 Intake Visit Reasons: TV PO LSG 01/25/2025-see note Gas Desulfurizer Required: Yes Gas Desulfurizer Name: Jocleyn De La Rosa Information Interpreted: clinical only Allergies No Known Allergies Allergy (Verified 02/03/25 10:17) Medication List - Last Reconciled 04/19/25 by LOUIS Yang amlodipine 5 mg PO DAILY docusate sodium 100 mg PO BID hydrochlorothiazide 25 mg PO DAILY losartan 100 mg PO DAILY ondansetron 4 mg PO Q12H pantoprazole 40 mg PO DAILY sucralfate 10 mL PO BID HPI Comments Details: This?is a?49?yo F who is s/p LSG 01/25/2025. Presents for 3mo post op visit. Weight at last visit on 01/25/2025 was 271 pounds with a BMI of 42.4, weight today is 249 pounds, representing a 22 pound weight loss with a BMI today of 39.? Reports nausea, no abdominal pain. Nausea occurs at nighttime when she takes MVI. Amlodipine, HCTZ, losartan on hold. Pt monitoring BP at home. Will take losartan if BP is high. Present meal plan includes: Premier premade shake mixed with almond milk x 3 1 protein bar she reports she told Dr Balbuena that she was having difficulty tolerating the plan but he did not want to change at this point; he did change protein brands Exercise routine includes: bike, walking outside, trying to burn 2000 june/week PFSH Medical History (Updated 04/19/25 @ 11:21 by LOUIS Yang) Hypertension Morbid obesity Surgical History (Updated 02/03/25 @ 10:18 by Shantel Vera CMA) S/P laparoscopic sleeve gastrectomy History of esophagogastroduodenoscopy (EGD) Hx of section Family History Mother No problems noted. Father No problems noted. Daughter No problems noted. Daughter No problems noted. Son No problems noted. Social History Household Members: Family Housing: House Are you a primary career technical education instructor to a significant other at home: No Do you presently have visiting nurse or other home services: No Alcohol intake: never Patient Tobacco Use Status: Never used Tobacco Second Hand Smoke Exposure: No service: No Telehealth Telehealth Telehealth Platform: Telephone Location of provider rendering services: practice address Location of patient: address on file Patient Identification confirmed using: Name, : Yes Telehealth method: voice only Patient verbally consented to treatment: Yes Patient verbally consented to billing insurance company: Yes Patient informed of any privacy concerns related to visit: Yes Minutes spent on Phone/Video with Pt.: 15 Assessment & Plan Assessment & Plan (1) S/P laparoscopic sleeve gastrectomy: Code(s): Z98.84 - Bariatric surgery status Category: Surgical (2) Obesity: Code(s): E66.9 - Obesity, unspecified Category: Medical Plan Recommended opening MVI capsule and mixing into beverage to help nausea. Pt reports she has tried this and did not like the bitter taste. Suggested chewable MVI to be purchased at [employer] [facility]. Offered to change to unflavored protein powder; pt has tried this but did not like. Offered Unjury chicken broth flavored powder; pt agreeable to this. 3 protein drinks a day with 1 scoop each ok in place of the 3 premier shakes. Due to complete PPI/carafate next week. Continue to monitor BP and dose according to parameters. Pt plans to travel next month. RTC 2mo. Medications: Refilled ondansetron Only take one every 12 hours as needed if you have nausea 4 mg PO Q12H 20 tabs 0RF nausea and vomiting R11.0 - Nausea
[2025-04-19 11:11] VITALS: BMI 39.0
--- OUTSIDE RECORDS SUMMARY | 2025-04-19 12:44 | XMS_ITS | Clinical Summary ---
Author Organization [facility] Address [address] [place] [address] Phone Care Team Providers Care Mens Locker Room Attendant Name Role Phone Alyson Mojica MD Primary Care Provider [phone] Allergies No known active allergies Medications losartan (COZAAR) 100 mg tablet Take 1 tablet (100 mg total) by mouth 1 (one) time each day. Take 1 Tablet by mouth daily. 90 tablet 2 4 Active amLODIPine (NORVASC) 5 mg tablet Take 1 tablet (5 mg total) by mouth 1 (one) time each day. 30 each 5 4 Active polyethylene glycol (Golytely) 236-22.74-6.74 -5.86 gram [...] A DAY 60 capsule 5 5 Active hydroCHLOROthia zide (HYDRODIURIL) 25 mg tablet TAKE 1 TABLET BY MOUTH 1 TIME EACH DAY. 90 tablet 1 5 Active Active Problems Problem Noted Date Diagnosed Date Constipation 09/15/2024 Morbid obesity ([facility] V24, [facility] V28) 2023 Primary hypertension 09/15/2024 Surgical History Surgery Date Site/Laterality Comments SECTION N/A PROCEDURE: HISTORICAL DELIVERY TUBAL LIGATION PROCEDURE: HISTORICAL TUBAL LIGATION Medical History Medical History Date Comments HTN (hypertension) DX:HTN (hyper tension) Chronic constipation Morbid obesity ([facility] V24, [facility] V28) Family History Medical History Relation Name [...] your loved ones. For example, child and adolescent therapist or elderly care for an older adult? [...] 11/06/2024 9:50 AM EST Plan of Treatment Upcoming Encounters Date Type Department Care Team (Late st Contact Info) Description 05/03/2025 10:30 AM EDT Office Visit Internal Medicine - [place] [address] [place] [address] Arden Kerr, YUKO [address] [facility] [place] [address] [place] [address] Health Maintenance Due Date Last Done Comments [...] Maintenance Results * COLONOSCOPY Anesthesia - MAC; [facility] ENDOSCOPY (11/06/2024 10:12 AM [...] pathology results. Narrative 11/06/2024 10:17 AM EST [facility] GI Patient Name: Rupinder Rico Procedure Date: 11/06/2024 10:14 AM Date of : 1975 Age: 49 Gender: Female Note Status: Finalized Attending MD: Danyelle Bautista DO, [id number] Procedure Date No Time: 11/06/2024 Procedure: ? [...] physician, the nurse, the ? anesthesiologist, the senior accountant cpa and the environmental field services technician ? in the pre-procedure area in [...] Procedure Code(s): ? --- Professional --- ? 88869, Colonoscopy, flexible; with removal of ? tumor(s), polyp(s), or other lesion(s) by snare ? technique Diagnosis Code(s): ? --- Professional --- ? D12.5, Benign neoplasm of sigmoid colon ? K64.9, Unspecified hemorrhoids ? Z12.11, Encounter for screening for malignant neoplasm ? of colon CPT copyright 2020 [employer]. All rights reserved. The codes documented in this report are preliminary and upon vice president medical affairs review may be revised to meet current compliance requirements. DANYELLE Bautista DO 11/06/2024 10:16:58 AM This report has been signed electronically.Danyelle Bautista DO Number of Addenda: 0 Note Initiated On: 11/06/2024 10:14 AM ? Endoscopy Department at [facility] - [address] [place] [address], ? [place] [address] Procedure Note Danyelle Bautista DO - 11/06/2024 [facility] GI Patient Name: Rupinder Rico Procedure Date: 11/06/2024 10:14 AM Date of : 1975 Age: 49 Gender: Female Note Status: Finalized Attending MD: Danyelle Bautista DO, [id number] Procedure Date No Time: 11/06/2024 Procedure: Colonoscopy [...] the physician, the nurse, the anesthesiologist, the senior accountant cpa and thetechnician in the pre-procedure area in [...] retroflexion views. Procedure Code(s): --- Professional --- 03618, Colonoscopy, flexible; with removal of tumor(s), polyp(s), or other lesion(s) by snare technique Diagnosis Code(s): --- Professional --- D12.5, Benign neoplasm of sigmoid colon K64.9, Unspecified hemorrhoids Z12.11, Encounter for screening for malignantneoplasm of colon CPT copyright 2020 [employer]. All rights reserved. The codes documented in this report are preliminary and upon vice president medical affairs reviewmay be revised to meet current compliance requirements. DANYELLE Bautista DO 11/06/2024 10:16:58 AM This report has been signed electronically.Danyelle Bautista DO Number of Addenda: 0 Note Initiated On: 11/06/2024 10:14 AM Endoscopy Department at [facility] - [address] [place] [id number] IMPRESSION: - Hemorrhoids found on perianal exam. [...] mmol/L LAB CHEMISTRY METHOD 10/19/2024 8:47 PM [facility] Potassium 3.4(L) 3.5 - 5.5 mmol/L LAB CHEMISTRY METHOD 10/19/2024 8:47 PM [facility] Chloride 107 96 - 110 mmol/L LAB CHEMISTRY METHOD 10/19/2024 8:47 PM [facility] CO2 28 21 - 32 mmol/L LAB CHEMISTRY METHOD 10/19/2024 8:47 PM [facility] Anion Gap 6 3 - 11 LAB CHEMISTRY METHOD 10/19/2024 8:47 PM [facility] Glucose 103(H) 70 - 100 mg/dL LAB CHEMISTRY METHOD 10/19/2024 8:47 PM [facility] BUN 17 5 - 25 mg/dL LAB CHEMISTRY METHOD 10/19/2024 8:47 PM [facility] Creatinine 1.05 0.50 - 1.10 mg/dL LAB CHEMISTRY METHOD 10/19/2024 8:47 PM [facility] eGFR 64 >=60 mL/min/1. 73m2 LAB CHEMISTRY METHOD 10/19/2024 8:47 PM [facility] Comment:Calculation based on the??Chronic Kidney Disease Epidemiology Collaboration (CKD-EPI) equation refit??without adjustment for race. BUN/Creatinine Ratio 16.2 LAB CHEMISTRY METHOD 10/19/2024 8:47 PM [facility] Calcium 9.6 8.5 - 10.5 mg/dL LAB CHEMISTRY METHOD 10/19/2024 8:47 PM EST [facility] Blood Venous blood specimen / Unknown Venipuncture / Unknown 10/19/2024 2:12 PM EST 10/19/2024 2:12 PM EST us Alyson Mojica MD LAB BLOOD ORDERABLES Final Res ult [facility] [address] [place] [address], [place] [phone] * MG Mammo Diagnostic Addl Views Right [...] Mammogram performed at [facility] [address] [place] [address] -------- FINAL REPORT -------- Dictated By: Jacqueline Ruggiero Dictated Date: 09/22/2024 13:58 ET Assigned Physician: Jacqueline Ruggiero Reviewed and Electronically Signed By: Jacqueline Ruggiero Signed Date: 09/22/2024 14:10 ET Workstation ID: [id number] Transcribed By: Self Edit Transcribed Date: 09/22/2024 [...] at 8:00, close to the skin line, [id number] cm from the nipple, a 20 mm [...] Mammogram performed at [facility] at [address] [address] -------- FINAL REPORT -------- Dictated By: Jacqueline Ruggiero Dictated Date: 09/22/2024 13:58 ET Assigned Physician: Jacqueline Ruggiero Reviewed and Electronically Signed By: Jacqueline Ruggiero Signed Date: 09/22/2024 14:10 ET Workstation ID: [id number] Transcribed By: Self Edit Transcribed Date: 09/22/2024 13:58 ET Eden Vasquez CNM IMG BI PROCEDURES Final Result * Cervical Cancer Screening: HPV (08/17/2024) Pathologist [facility] Cervical Cancer Screening: HPV normal, abstracted Historical Provider HEALTH MAINTENANCE Final Result * (ABNORMAL) Lipid panel (05/26/2024) Pathologist [facility] LDL/HDL Ratio 4 0 - 4 Triglycerides 118 0 - 150 mg/dL Cholesterol 243(A) 0 - 200 mg/dL HDL 66 >=40 mg/dL LDL Cholesterol 154(A) 0 - 100 mg/dL Blood Venous blood specimen / Unknown Historical Provider LAB BLOOD ORDERABLES Janette l Result from Last 3 Months or Most Recently Relevant to Health Maintenance Insurance [employer]AN Care Teams Mens Locker Room Attendant Relationship Specialty Start Date End Date Alyson Mojica MD [address] [address] PCP - General 05/21/24
== END 2025-04-19 11:33 | disposition home or self-care (01) ==
LOC: HO.HBS 11:10
PROVIDERS: PCP Internal Medicine; Visit Provider Physician Assistant Surgical
DX: E66.9 Obesity, unspecified (principal); Z68.39 Body mass index [BMI] 39.0-39.9, adult; Z98.84 Bariatric surgery status
CPT/HCPCS: 99024

== ENCOUNTER 2025-06-23 12:30 | Outpatient (AMB) | payer OTHER, SELFPAY ==
--- NOTE | 2025-06-23 12:47 | MHC.OFFVISWM ---
VS Expanded 06/23/25 12:51 Height 5 ft 7 in Weight 235 lb BMI 36.8 Intake Visit Reasons: TV PO LSG 01/25/2025 Quality Assurance Auditor Required: Yes Quality Assurance Auditor Name: Shanon Alex Information Interpreted: clinical only Allergies No Known Allergies Allergy (Verified 02/03/25 10:17) Medication List - Last Reconciled 06/23/25 by LOUIS Yang amlodipine 5 mg PO DAILY Held on 01/26/25. Instructions: Resume on 01/27/25. Check your blood pressure every morning as soon as you wake up and send it to Dr. Strickland. Do no take the blood pressure medication if the blood pressure is below 120/70. Wait every day to hear back from Dr. Strickland before you take the medication. docusate sodium 100 mg PO BID hydrochlorothiazide 25 mg PO DAILY Held on 01/26/25. Instructions: Resume on 01/27/25. Check your blood pressure every morning as soon as you wake up and send it to Dr. Strickland. Do no take the blood pressure medication if the blood pressure is below 120/70. Wait every day to hear back from Dr. Strickland before you take the medication. losartan 100 mg PO DAILY Held on 01/26/25. Instructions: Resume on 01/26/25. Only resume according to parameters given by Dr. Strickland ondansetron 4 mg PO Q12H HPI Comments Details: This?is a?50?yo F who is s/p LSG 01/25/2025. Presents for 5mo post op visit. Weight at last visit on 04/19/2025 was 249; weight today is 235 pounds, representing a 14 pound weight loss with a BMI today of 36.8.? No complaints of emesis, abdominal pain or reflux, or constipation. Amlodipine, HCTZ, losartan on hold. Pt monitoring BP at home. Will take losartan if BP is high. Finished PPI and carafate. Reports she has lost contact with Dr. Balbuena. Present meal plan includes: Premier premade shake mixed with almond milk x 3 1 protein bar 3 protein drinks a day with 1 scoop each ok in place of the 3 premier shakes (Unjury chicken broth brand) - when she went away on vacation did not follow plan closely, says she does not like the shakes or bars. Claims she gets nausea when taking any kind of protein powder. Exercise routine includes: bike, walking outside, trying to burn 2000 june/week -has not been able to exercise, had a small accident , has a leg wound preventing exercise [facility] Medical History (Updated 04/19/25 @ 11:21 by LOUIS Yang) Hypertension Morbid obesity Surgical History (Updated 02/03/25 @ 10:18 by Shantel Vera CMA) S/P laparoscopic sleeve gastrectomy History of esophagogastroduodenoscopy (EGD) Hx of section Family History Mother No problems noted. Father No problems noted. Daughter No problems noted. Daughter No problems noted. Son No problems noted. Social History Household Members: Family Housing: House Are you a primary critical care physician to a significant other at home: No Do you presently have visiting nurse or other home services: No Alcohol intake: never Patient Tobacco Use Status: Never used Tobacco Second Hand Smoke Exposure: No service: No Telehealth Telehealth Telehealth Platform: Telephone Location of provider rendering services: practice address Location of patient: address on file Patient Identification confirmed using: Name, : Yes Telehealth method: voice only Patient verbally consented to treatment: Yes Patient verbally consented to billing insurance company: Yes Patient informed of any privacy concerns related to visit: Yes Minutes spent on Phone/Video with Pt.: 20 Assessment & Plan Assessment & Plan (1) Obesity: Code(s): E66.9 - Obesity, unspecified Category: Medical (2) S/P laparoscopic sleeve gastrectomy: Code(s): Z98.84 - Bariatric surgery status Category: Surgical Plan Offered [employer] jose alberto download info to help pt create a meal plan that works for her based on her preferences. Can choose a more relaxed plan for weight loss to incorporate more options. She understands that fewer protein supplements will likely result in slower pace of weight loss. Labs ordered, pt recently had some labs done by PCP, will obtain those results and get to our office; she would like to have any remaining necessary labs done at another clinic so can print and mail orders to her. RTC 3mo, phone call visit. Orders: Orders TSH reflex Free T4 Today Z98.84 - Bariatric surgery status C Reactive Protein Today Z98.84 - Bariatric surgery status Vitamin A Today Z98.84 - Bariatric surgery status Vitamin B12 and Folate Today Z98.84 - Bariatric surgery status Complete Blood Count Auto Diff Today Z98.84 - Bariatric surgery status Hemoglobin A1c Today Z98.84 - Bariatric surgery status Vitamin D 25-OH Total Today Z98.84 - Bariatric surgery status Ferritin Today Z98.84 - Bariatric surgery status Vitamin B1 Today Z98.84 - Bariatric surgery status Zinc Today Z98.84 - Bariatric surgery status Comprehensive Met. Panel Today Z98.84 - Bariatric surgery status Lipid Panel Today Z98.84 - Bariatric surgery status IRON PROFILE Today Z98.84 - Bariatric surgery status Insulin Today Z98.84 - Bariatric surgery status
[2025-06-23 12:51] VITALS: BMI 36.8
--- OUTSIDE RECORDS SUMMARY | 2025-06-23 13:45 | XMS_ITS | Clinical Summary ---
Author Organization [facility] Address [address] [place] [address] Phone Care Team Providers Care Supervisor Record Press Name Role Phone Alyson Mojica MD Primary Care Provider [phone] Allergies No known active allergies Medications polyethylene glycol (Golytely) 236-22.74-6.74 -5.86 gram solution [...] SECS BEFORE SWALLOWING ONCE DAILY 4 Active ferrous sulfate 324 mg (65 [...] A DAY 60 capsule 5 5 Active losartan (COZAAR) 100 mg tablet Take 1 tablet (100 mg total) by mouth 1 (one) time each day. Take 1 Tablet by mouth daily. 90 tablet 2 5 Active hydroCHLOROthia zide (HYDRODIURIL) 25 mg tablet Take 1 tablet (25 mg total) by mouth 1 (one) time each day. 90 tablet 1 5 Active amLODIPine (NORVASC) 5 mg tablet TAKE 1 TABLET BY MOUTH 1 TIME EACH DAY. 90 tablet 1 5 Active potassium chloride (KLOR-CON) 20 mEq packetIndicatio ns:Hypokalemia Take 20 mEq by mouth 1 (one) time each day. 90 each 2 5 Active Active Problems Problem Noted Date Diagnosed Date Constipation 09/15/2024 Morbid obesity (CMS/HCC V24, CMS/[facility] V28) 2023 Primary hypertension 09/15/2024 Encounters Date Type Department Care Team Description 05/03/2025 10:30 AM EDT Office Visit Internal Medicine - [place] [address] [facility] [address] [place] [address] Arden Kerr NP Primary hypertension (Primary Dx); Hypokalemia; Screening for diabetes mellitus; Vitamin B12 deficiency; Vitamin D deficiency; Screening for ischemic heart disease; Prediabetes 04/28/2025 11:29 AM EDT - 04/28/2025 11:59 PM EDT Hospital Encounter [facility] Ultrasound [address] [place] [phone] Encounter for screening mammogram for breast cancer Discharge Disposition: Home or Self Care 04/28/2025 10:42 AM EDT - 04/28/2025 11:59 PM EDT [facility] [address] [phone] Encounter for screening mammogram for breast cancer Discharge Disposition: Home or Self Care from Last 3 Months Surgical History Surgery Date Site/Laterality Comments SECTION N/A PROCEDURE: HISTORICAL DELIVERY TUBAL LIGATION PROCEDURE: HISTORICAL TUBAL LIGATION Medical History Medical History Date Comments HTN (hypertension) DX:HTN (hyper tension) Chronic constipation Morbid obesity (CMS/HCC V24, CMS/HCC V28) Family History Medical History Relation Name [...] for your loved ones. For example, children's nursery assistant or elderly care for an older adult? [...] Sign Reading Time Taken Comments Blood Pressure 131/73 05/03/2025 10:23 AM EDT Pulse 73 05/03/2025 10:23 AM EDT Temperature 36.4 C (97.5 F) 05/03/2025 10:23 AM EDT Respiratory Rate 17 11/06/2024 10:33 AM EST Oxygen Saturation 97% 05/03/2025 10:23 AM EDT Inhaled Oxygen Concentration - - Weight 110 kg (243 lb 9.6 oz) 05/03/2025 10:23 A M EDT Height 172.7 cm (5' 7.99 ) 05/03/2025 10:23 AM E DT Body Mass Index 37.05 05/03/2025 10:23 AM EDT Plan of Treatment Upcoming Encounters Date Type Department Care Team (Late st Contact Info) Description 10/29/2025 9:30 AM EST Office Visit Internal Medicine - [place] [address] [facility] [address] [place] [phone] Alyson Mojica MD [address] [facility] [address] [place] [phone] 11/02/2025 9:30 AM EST [facility]ointment [facility] [address] [place] [phone] Health Maintenance Due Date Last Done Comments DTaP,Tdap,and Td Vaccines (1 - Tdap) 1992 Hepatitis B Vaccines (1 of 3 - 19+ 3-dose series) 1992 Pneumococcal Vaccine: 50+ Years (1 of 1 - PCV) 2023 Zoster Vaccines (1 of 2) 2023 HIV Screening 06/05/2024 Hepatitis C Screening 06/05/2024 COVID-19 Vaccine ( season) 2024 Influenza Vaccine (#1) 2025 Social Influencers of Health Screening 10/19/2025 10/19/2024 Hypertension/CHF/CAD Annual BMP Blood Test 05/03/2026 05/03/2025, 10/19/2024, 05/26/2024 Breast Cancer Screening 04/28/2027 04/28/20, 09/15/2024, 09/03/2024, Additional history exists Colorectal Cancer Screening: Colonoscopy 11/06/2027 11/06/2024 Cervical Cancer Screening: HPV 08/17/2029 08/17/2024 Cholesterol Screening (Lipid Panel) 05/03/2030 05/03/2025, 05/26/2024 Depression Screening Completed 04/27/2025 HIB Vaccines Aged Out No longer eligi [...] 20 months Aged Out No longer eligible based on patient's age to complete this topic Varicella Vaccines Aged Out No longer eligible based on patient's age to complete this topic Procedures Procedure Name Priority Date/Time Associated Diagnosis Comments COMPLETE BLOOD COUNT Routine 05/03/2025 10:58 AM EDT Primary hypertension COMPREHENSIVE METABOLIC PANEL Routine 05/03/2025 10:58 AM EDT Primary hypertension HEMOGLOBIN A1C Routine 05/03/2025 10:58 AM EDT Screening for diabetes mellitus MAGNESIUM Routine 05/03/2025 10:58 AM EDT Primary hypertension VITAMIN B12 Routine 05/03/2025 10:58 AM EDT Vitamin B12 deficiency VITAMIN D 25 HYDROXY Routine 05/03/2025 10:58 AM EDT Vitamin D deficiency THYROID STIMULATING HORMONE Routine 05/03/2025 10:58 AM EDT Primary hypertension LIPID PANEL WITH REFLEX TO DIRECT LDL Routine 05/03/2025 10:58 AM EDT Screening for ischemic heart disease US BREAST LIMITED BILAT Routine 04/28/2025 11:57 AM EDT Encounter for screening mammogram for breast cancer MG MAMMO DIGITAL DIAGNOSTIC W RUCHI BILAT Routine 04/28/2025 11:52 AM EDT Encounter for screening mammogram for breast cancer COLONOSCOPY Routine 11/06/2024 10:12 AM EST Special screening for malignant neoplasms, colon HM HPV Routine 08/17/2024 from Last 3 Months or Most Recently Relevant to Health Maintenance Results * (ABNORMAL) Lipid panel with reflex to direct LDL (05/03/2025 10:58 AM EDT) Cholesterol 309(H) 0 - 200 mg/dL LAB CHEMISTRY METHOD 05/03/2025 3:[address] [facility] Triglycerides 92 0 - 150 mg/dL LAB CHEMISTRY METHOD 05/03/2025 3:[address] [facility] HDL 61 >=40 mg/dL LAB CHEMISTRY METHOD 05/03/2025 3:[address] [facility] LDL Calculated 230(H) 0 - 100 mg/dL LAB CHEMISTRY METHOD 05/03/2025 3:[address] [facility] VLDL Cholesterol Michele 18.4 mg/dL LAB CHEMISTRY METHOD 05/03/2025 3:[address] [facility] Non HDL Chol. (LDL+VLDL) 248(H) <145 mg/dL LAB CHEMISTRY METHOD 05/03/2025 3:[address] [facility] Chol/HDL Ratio 5.1(H) 0.0 - 4.4 LAB CHEMISTRY METHOD 05/03/2025 3:[address] [facility] Blood Venous blood specimen / Unknown Venipuncture / Unknown 05/03/2025 10:58 AM EDT 05/03/2025 10:58 AM EDT [facility] Usha LAB BLOOD ORDERABLES Final Resul t Performing Organization Address City/[facility]/ZIP Co de Phone Number [facility] [address] [place] [address], [place] [phone] * Vitamin D 25 hydroxy (05/03/2025 10:58 AM EDT) Vit D, 25-Hydroxy 33.3 30.0 - 80.0 ng/mL LAB CHEMISTRY METHOD 05/03/2025 4:[address] [facility] Blood Venous blood specimen / Unknown Venipuncture / Unknown 05/03/2025 10:58 AM EDT 05/03/2025 10:58 AM EDT Arden Kerr [employer] LAB BLOOD ORDERABLES Final Resul t Performing Organization Address City/[facility]/ZIP Co de Phone Number [facility] [address] [place] [address], [place] [phone] * (ABNORMAL) Complete blood count (05/03/2025 10:58 AM EDT) WBC 5.1 4.8 - 10.8 K/mcL LAB HEMETOLOGY METHOD 05/03/2025 2:[address] [facility] RBC 4.00 3.80 - 4.80 M/mcL LAB HEMETOLOGY METHOD 05/03/2025 2:[address] [facility] Hemoglobin 11.5 11.5 - 16.0 g/dL LAB HEMETOLOGY METHOD 05/03/2025 2:[address] [facility] Hematocrit 34.5(L) 35.0 - 47.0 % LAB HEMETOLOGY METHOD 05/03/2025 2:[address] [facility] MCV 86.9 79.0 - 98.0 FL LAB HEMETOLOGY METHOD 05/03/2025 2:[address] [facility] MCH 29.0 27.0 - 32.0 pcg LAB HEMETOLOGY METHOD 05/03/2025 2:[address] [facility] MCHC 33.3 32.0 - 37.0 g/dL LAB HEMETOLOGY METHOD 05/03/2025 2:[address] [facility] RDW 14.6 11.0 - 15.0 % LAB HEMETOLOGY METHOD 05/03/2025 2:[address] [facility] Platelets 144 130 - 400 K/mcL LAB HEMETOLOGY METHOD 05/03/2025 2:[address] [facility] MPV 13.0(H) 7.0 - 11.0 FL LAB HEMETOLOGY METHOD 05/03/2025 2:[address] [facility] NRBC 0.0 <1.0 % LAB HEMETOLOGY METHOD 05/03/2025 2:[address] [facility] NRBC Absolute 0.00 <0.10 K/mcL LAB HEMETOLOGY METHOD 05/03/2025 2:[address] [facility] Blood Venous blood specimen / Unknown Venipuncture / Unknown 05/03/2025 10:58 AM EDT 05/03/2025 10:58 AM EDT us Arden Kerr NP LAB BLOOD ORDERABLES Final Resul t [facility] [address] [place] [address], [place] [phone] * Thyroid stimulating hormone (05/03/2025 10:58 AM EDT) [facility] TSH 2.36 0.40 - 4.00 mcIU/mL LAB CHEMISTRY METHOD 05/03/2025 4:[address] [facility] Blood Venous blood specimen / Unknown Venipuncture / Unknown 05/03/2025 10:58 AM EDT 05/03/2025 10:58 AM EDT Arden Kerr NP LAB BLOOD ORDERABLES Final Resul t Performing Organization Address City/[facility]/ZIP Co de Phone Number [facility] [address] [place] [address], * Magnesium (05/03/2025 10:58 AM EDT) [facility] Magnesium 2.0 1.9 - 2.6 mg/dL LAB CHEMISTRY METHOD 05/03/2025 3:[address] [facility] Blood Venous blood specimen / Unknown Venipuncture / Unknown 05/03/2025 10:58 AM EDT 05/03/2025 10:58 AM EDT us Arden Kerr NP LAB BLOOD ORDERABLES Final Resul t [facility] [address] [place] [address], [place] [phone] * Hemoglobin A1c (05/03/2025 10:58 AM EDT) [facility] Hemoglobin A1C 4.7 <6.5 % LAB CHEMISTRY METHOD 05/03/2025 9:[address] [facility] Mean Bld Glu Estim. 88 mg/dL LAB CHEMISTRY METHOD 05/03/2025 9:[address] [facility] Blood Venous blood specimen / Unknown Venipuncture / Unknown 05/03/2025 10:58 AM EDT 05/03/2025 10:58 AM EDT Arden Kerr [employer] LAB BLOOD ORDERABLES Final Resul t Performing Organization Address City/[facility]/ZIP Co de Phone Number [facility] [address] [place] [address], [place] [phone] * (ABNORMAL) Vitamin B12 (05/03/2025 10:58 AM EDT) Pathologist [facility] Vitamin B-12 1,765(H) 250 - 900 pcg/mL LAB CHEMISTRY METHOD 05/03/2025 3:[address] [facility] Blood Venous blood specimen / Unknown Venipuncture / Unknown 05/03/2025 10:58 AM EDT 05/03/2025 10:58 AM EDT Arden Kerr [employer] LAB BLOOD ORDERABLES Final Resul t Performing Organization Address [facility]/ZIP Co de Phone Number [facility] [address] [place] [address], [place] [phone] * (ABNORMAL) Comprehensive metabolic panel (05/03/2025 10:58 AM EDT) [facility] Sodium 139 133 - 145 mmol/L LAB CHEMISTRY METHOD 05/03/2025 3:[address] [facility] Potassium 3.1(L) 3.5 - 5.5 mmol/L LAB CHEMISTRY METHOD 05/03/2025 3:[address] [facility] Chloride 103 96 - 110 mmol/L LAB CHEMISTRY METHOD 05/03/2025 3:[address] [facility] CO2 26 21 - 32 mmol/L LAB CHEMISTRY METHOD 05/03/2025 3:[address] [facility] Anion Gap 10 3 - 11 LAB CHEMISTRY METHOD 05/03/2025 3:45 PM [facility] Glucose 80 70 - 100 mg/dL LAB CHEMISTRY METHOD 05/03/2025 3:45 PM [facility] BUN 19 5 - 25 mg/dL LAB CHEMISTRY METHOD 05/03/2025 3:45 PM [facility] Creatinine 1.36(H) 0.50 - 1.10 mg/dL LAB CHEMISTRY METHOD 05/03/2025 3:45 PM [facility] eGFR 47(L) >=60 mL/min/1. 73m2 LAB CHEMISTRY METHOD 05/03/2025 3:45 PM [facility] Comment:Calculation based on the Chronic Kidney Disease Epidemiology Collaboration (CKD-EPI) equation refit without adjustment for race. BUN/Creatinine Ratio 14.0 LAB CHEMISTRY METHOD 05/03/2025 3:45 PM [facility] Calcium 10.0 8.5 - 10.5 mg/dL LAB CHEMISTRY METHOD 05/03/2025 3:45 PM [facility] AST (SGOT) 19 10 - 42 unit/L LAB CHEMISTRY METHOD 05/03/2025 3:45 PM [facility] ALT (SGPT) 22 10 - 60 unit/L LAB CHEMISTRY METHOD 05/03/2025 3:45 PM [facility] Alkaline Phosphatase 61 42 - 121 unit/L LAB CHEMISTRY METHOD 05/03/2025 3:45 PM [facility] Total Protein 6.9 6.0 - 8.0 g/dL LAB CHEMISTRY METHOD 05/03/2025 3:45 PM [facility] Albumin 3.7 3.2 - 5.0 g/dL LAB CHEMISTRY METHOD 05/03/2025 3:45 PM [facility] Total Bilirubin 1.7(H) 0.0 - 1.4 mg/dL LAB CHEMISTRY METHOD 05/03/2025 3:[address] [facility] Blood Venous blood specimen / Unknown Venipuncture / Unknown 05/03/2025 10:58 AM EDT 05/03/2025 10:58 AM EDT Arden Kerr [employer] LAB BLOOD ORDERABLES Final Resul t [facility] [address] [place] [address], [place] [phone] * US Breast Limited bilat (04/28/2025 11:57 AM EDT) Anatomical Region Laterality Modality Breast Bilateral Ultrasound 04/28/2025 1:04 PM EDT Impressions 04/28/2025 1:24 PM EDT Bilateral breast masses, 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 Recommend additional six-month follow-up with bilateral diagnostic mammography and ultrasound. BI-RADS CATEGORY: Mammography: 3 - PROBABLY BENIGN Ultrasound: 3 - PROBABLY BENIGN RECOMMENDATIONS: Short Interval Follow-up is recommended for bilateral breasts in 6 months. Diagnostic Ultrasound in 6 Months is recommended for Bilateral Breasts. Mammo Location: [facility], [address] [place], [place], [address], . -------- FINAL REPORT -------- Dictated By: Sarah Schreiber Dictated Date: 04/28/2025 13:04 ET Assigned Physician: Sarah Schreiber Reviewed and Electronically Signed By: Sarah Schreiber Signed Date: 04/28/2025 13:24 ET Workstation ID: [id number] Transcribed By: Self Edit Transcribed Date: 04/28/2025 13:04 ET Narrative 04/28/2025 1:24 PM EDT CLINICAL: 49 years old, Female, six-month follow-up for bilateral breast masses. COMPARISON: 09/02/2024 and 09/15/2024 FINDINGS: MAMMOGRAPHY TECHNIQUE: Bilateral MLO and CC views were obtained digitally with 3-D mammogram (digital breast tomosynthesis). Computer-aided detection was utilized in evaluation of this exam (CAD). Stable bilateral masses. There is no evidence of suspicious mass or architectural distortion. No worrisome calcifications are evident. There has been no significant change from prior exam(s). BREAST DENSITY: B - There are scattered areas of fibroglandular density. ULTRASOUND TECHNIQUE: Ultrasound survey evaluation of the right and left breast was performed. Right breast: 1.2 cm oval mass at 8 o'clock 6 cm from the nipple, this appears to be a different mass and the previously imaged 5 mm mass at 8 o'clock 10 cm from the nipple which was not seen on today's exam. Stable 9 mm mass at 12 o'clock 10 to 11 cm from the nipple. 8mm cm mass at 1 o'clock 9 cm from the nipple. This measures smaller on today's exam measuring 9 mm, previously 1.8 1.6 cm mass at 4 o'clock 6 cm from the nipple cm from the nipple. Left breast: Stable 10 mm mass at 8 o'clock 13 cm from the nipple. 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 Recommend additional six-month follow-up with bilateral diagnostic mammography and ultrasound. BI-RADS CATEGORY: Mammography: 3 - PROBABLY BENIGN Ultrasound: 3 - PROBABLY BENIGN RECOMMENDATIONS: Short Interval Follow-up is recommended for bilateral breasts in 6 months. Diagnostic Ultrasound in 6 Months is recommended for Bilateral Breasts. Mammo Location: [facility], [address] [place] [address], [id number], . -------- FINAL REPORT -------- Dictated By: Sarah Schreiber Dictated Date: 04/28/2025 13:04 ET Assigned Physician: Sarah Schreiber Reviewed and Electronically Signed By: Sarah Schreiber Signed Date: 04/28/2025 13:24 ET Workstation ID: [id number] Transcribed By: Self Edit Transcribed Date: 04/28/2025 13:04 ET Narrative 04/28/2025 1:24 PM EDT CLINICAL: 49 years old, Female, six-month follow-up for bilateral breast masses. COMPARISON: 09/02/2024 and 09/15/2024 FINDINGS: MAMMOGRAPHY TECHNIQUE: Bilateral MLO and CC views were obtained digitally with 3-D mammogram (digital breast tomosynthesis). Computer-aided detection was utilized in evaluation of this exam (CAD). Stable bilateral masses. There is no evidence of suspicious mass or architectural distortion. No worrisome calcifications are evident. There has been no significant change from prior exam(s). BREAST DENSITY: B - There are scattered areas of fibroglandular density. ULTRASOUND TECHNIQUE: Ultrasound survey evaluation of the right and left breast was performed. Right breast: 1.2 cm oval mass at 8 o'clock 6 cm from the nipple, this appears to be a different mass and the previously imaged 5 mm mass at 8 o'clock 10 cm from the nipple which was not seen on today's exam. Stable 9 mm mass at 12 o'clock 10 to 11 cm from the nipple. 8mm cm mass at 1 o'clock 9 cm from the nipple. This measures smaller on today's exam measuring 9 mm, previously 1.8 1.6 cm mass at 4 o'clock 6 cm from the nipple cm from the nipple. Left breast: Stable 10 mm mass at 8 o'clock 13 cm from the nipple. us Self Referral Sppl IMG BI PROCEDURES Final Resul t * COLONOSCOPY Anesthesia - MAC; RUST ENDOSCOPY (11/06/2024 10:12 AM EST) Anatomical Region Laterality Modality Endoscopy 11/06/2024 10:1 4 AM EST Impressions 11/06/2024 10:17 AM EST - Hemorrhoids found on perianal exam. - One 12 mm polyp in the sigmoid colon, removed with a hot snare. Resected and retrieved. - The examination was otherwise normal on direct and retroflexion views. Recommendation: - - Discharge patient to home. - High fiber diet. - Continue present medications. - Await pathology results. - Repeat colonoscopy for surveillance based on pathology results. Narrative 11/06/2024 10:17 AM EST [facility] GI Patient Name: Rupinder Rico Procedure Date: 11/06/2024 10:14 AM Date of : 1975 Age: 49 Gender: Female Note Status: Finalized Attending MD: Danyelle Bautista DO, [id number] Procedure Date No Time: 11/06/2024 Procedure: Colonoscopy Indications: Screening for colorectal malignant neoplasm Providers: Danyelle Bautista DO Referring MD: Alyson Mojica MD Medicines: Monitored Anesthesia Care Complications: No immediate complications. Estimated blood loss: Minimal. Estimated Blood Loss: Estimated blood loss was minimal. Procedure: Pre-Anesthesia Assessment: - - Prior to the procedure, a History and Physical was performed, and patient medications and allergies were reviewed. The patient is competent. The risks and benefits of the procedure and the sedation options and risks were discussed with the patient. All questions were answered and informed consent was obtained. Patient identification and proposed procedure were verified by the physician, the nurse, the anesthesiologist, the search advertising strategist and the audio technician in the pre-procedure area in the endoscopy suite. Mental Status Examination: alert and oriented. Airway Examination: normal oropharyngeal airway and neck mobility. Respiratory Examination: clear to auscultation. CV Examination: normal. Prophylactic Antibiotics: The patient does not require prophylactic antibiotics. Prior Anticoagulants: The patient has taken no anticoagulant or antiplatelet agents. ASA Grade Assessment: II - A patient with severe systemic disease. After reviewing the risks and benefits, the patient was deemed in satisfactory condition to undergo the procedure. The anesthesia plan was to use monitored anesthesia care (MAC). Immediately prior to administration of medications, the patient was re-assessed for adequacy to receive sedatives. The heart rate, respiratory rate, oxygen saturations, blood pressure, adequacy of pulmonary ventilation, and response to care were monitored throughout the procedure. The physical status of the patient was re-assessed after the procedure. After I obtained informed consent, the scope was passed under direct vision. Throughout the procedure, the patient's blood pressure, pulse, and oxygen [...] minimal. The exam was otherwise without abnormality on direct and retroflexion views. Procedure Code(s): --- Professional --- 86083, Colonoscopy, flexible; with removal of tumor(s), polyp(s), or other lesion(s) by snare technique Diagnosis Code(s): --- Professional --- D12.5, Benign neoplasm of sigmoid colon K64.9, Unspecified hemorrhoids Z12.11, Encounter for screening for malignant neoplasm of colon CPT copyright 2020 [employer]. All rights reserved. The codes documented in this report are preliminary and upon producer assistant review may be revised to meet current compliance requirements. DANYELLE Bautista DO 11/06/2024 10:16:58 AM This report has been signed electronically.Danyelle Bautista DO Number of Addenda: 0 Note Initiated On: 11/06/2024 10:14 AM Endoscopy Department at [facility] - [address] [place] [id number] Procedure Note Danyelle Bautista DO - 11/06/2024 [facility] GI Patient Name: Rupinder Rico Procedure Date: 11/06/2024 10:14 AM Date of : 1975 Age: 49 Gender: Female Note Status: Finalized Attending MD: Danyelle Bautista DO, [id number] Procedure Date No Time: 11/06/2024 Procedure: Colonoscopy [...] the physician, the nurse, the anesthesiologist, the search advertising strategist and thetechnician in the pre-procedure area in [...] retroflexion views. Procedure Code(s): --- Professional --- 86591, Colonoscopy, flexible; with removal of tumor(s), polyp(s), or other lesion(s) by snare technique Diagnosis Code(s): --- Professional --- D12.5, Benign neoplasm of sigmoid colon K64.9, Unspecified hemorrhoids Z12.11, Encounter for screening for malignantneoplasm of colon CPT copyright 2020 [employer]. All rights reserved. The codes documented in this report are preliminary and upon producer assistant reviewmay be revised to meet current compliance requirements. DANYELLE Bautista DO 11/06/2024 10:16:58 AM This report has been signed electronically.Danyelle Bautista DO Number of Addenda: 0 Note Initiated On: 11/06/2024 10:14 AM Endoscopy Department at [facility] - [address] [place] [phone] IMPRESSION: - Hemorrhoids found on perianal exam. [...] DO GI~PROCEDURE ORDERABLES Final Re sult * Cervical Cancer Screening: HPV (08/17/2024) Cervical Cancer Screening: HPV normal, abstracted Historical Provider MD HEALTH MAINTENANCE Final Result from Last 3 Months or Most Recently Relevant to Health Maintenance Insurance [place] [address] [address] [employer] Care Teams Supervisor Record Press Relationship Specialty Start Date End Date Alyson Mojica MD [address] [place] [phone] PCP - General 05/21/24
== END 2025-06-23 13:11 | disposition home or self-care (01) ==
LOC: HO.HBS 12:55
PROVIDERS: PCP Internal Medicine; Visit Provider Physician Assistant Surgical
DX: E66.9 Obesity, unspecified (principal); Z68.36 Body mass index [BMI] 36.0-36.9, adult; Z90.3 Acquired absence of stomach [part of]; Z98.84 Bariatric surgery status
CPT/HCPCS: 99214

== ENCOUNTER → 2025-06-23 12:30 | Outpatient (BNVA) | payer OTHER, SELFPAY | PROVIDERS: PCP Internal Medicine; Visit Provider Physician Assistant Surgical | DX: Z98.84 Bariatric surgery status (principal) | CPT/HCPCS: 99212 ==

== ENCOUNTER 2025-08-09 06:42 | Day surgery (SDC) | payer OTHER, SELFPAY ==
--- OUTSIDE RECORDS SUMMARY | 2025-07-08 11:11 | XMS_ITS | Clinical Summary ---
Author Organization [facility] Address [address] [place] [address] Phone Care Team Providers Care Cad Intern Name Role Phone Alyson Mojica MD Primary Care Provider [phone] Allergies No known active allergies Medications polyethylene [...] Date Constipation 09/15/2024 Morbid obesity (CMS/HCC V24, CMS/FORMERLY [facility] V28) 2023 Primary hypertension 09/15/2024 Encounters Date Type Department Care Team Description 05/03/2025 10:30 AM EDT Office Visit Internal Medicine - [place] [address] [facility] [place] [address] Arden Kerr NP Primary hypertension (Primary Dx); Hypokalemia; Screening for diabetes mellitus; Vitamin B12 deficiency; Vitamin D deficiency; Screening for ischemic heart disease; Prediabetes 04/28/2025 11:29 AM EDT - 04/28/2025 11:59 PM EDT Hospital Encounter [facility] Ultrasound [address] [place] [phone] Encounter for screening mammogram for breast cancer Discharge Disposition: Home or Self Care 04/28/2025 10:42 AM EDT - 04/28/2025 11:59 PM EDT [facility] at [address] [phone] Encounter for screening mammogram for breast cancer [...] Care Team (Late st Contact Info) Description 07/09/2025 1:30 PM EDT Office Visit Internal Medicine [facility] [address] [phone] Alyson Mojica MD [address] [place] [address] 10/29/2025 9:30 AM EST Office Visit Internal Medicine [facility] [address] [phone] Alyson Mojica MD [address] [place] [address] 11/02/2025 9:30 AM EST Appointment [facility] at [address] [phone] Health Maintenance Due Date Last Done Comments DTaP,Tdap,and Td Vaccines (1 - Tdap) 1992 Hepatitis B Vaccines (1 of 3 - 19+ 3-dose series) 1992 Pneumococcal Vaccine: 50+ Years (1 of 1 - PCV) 2023 Zoster Vaccines (1 of 2) 2023 HIV Screening 06/05/2024 Hepatitis C Screening 06/05/2024 COVID-19 Vaccine (1 - 2023- season) 2025 Influenza Vaccine (#1) 2025 Social Influencers of [...] breast cancer MG MAMMO DIGITAL DIAGNOSTIC W MED BILAT Routine 04/28/2025 11:52 AM EDT Encounter [...] LAB CHEMISTRY METHOD 05/03/2025 3:45 PM EDT [facility] Triglycerides 92 0 - 150 mg/dL LAB CHEMISTRY METHOD 05/03/2025 3:45 PM EDT [facility] HDL 61 >=40 mg/dL LAB CHEMISTRY METHOD 05/03/2025 3:45 PM EDT [facility] LDL Calculated 230(H) 0 - 100 mg/dL LAB CHEMISTRY METHOD 05/03/2025 3:45 PM EDT [facility] VLDL Cholesterol Michele 18.4 mg/dL LAB CHEMISTRY METHOD 05/03/2025 3:45 PM EDT [facility] Non HDL Chol. (LDL+VLDL) 248(H) <145 mg/dL LAB CHEMISTRY METHOD 05/03/2025 3:45 PM EDT [facility] Chol/HDL Ratio 5.1(H) 0.0 - 4.4 LAB CHEMISTRY METHOD 05/03/2025 3:45 PM EDT [facility] Blood Venous blood specimen / Unknown Venipuncture / Unknown 05/03/2025 10:58 AM EDT 05/03/2025 10:58 AM EDT [facility] BLOOD ORDERABLES Final Resul t Performing Organization Address [facility]/ZIP Co de Phone Number [facility] [address] [place] [address], [place] [phone] * Vitamin D 25 hydroxy (05/03/2025 10:58 AM EDT) Pathologist [facility] Vit D, 25-Hydroxy 33.3 30.0 - 80.0 ng/mL LAB CHEMISTRY METHOD 05/03/2025 4:31 PM EDT [facility] Blood Venous blood specimen / Unknown Venipuncture / Unknown 05/03/2025 10:58 AM EDT 05/03/2025 10:58 AM EDT Arden Kerr LAB BLOOD ORDERABLES Final Resul t Performing Organization Address City/[facility]/ZIP Co de Phone Number [facility] [address] [place] [address], [place] [phone] * (ABNORMAL) Complete blood count (05/03/2025 10:58 AM EDT) WBC 5.1 4.8 - 10.8 K/mcL LAB HEMETOLOGY METHOD 05/03/2025 2:30 PM EDT [facility] RBC 4.00 3.80 - 4.80 M/mcL LAB HEMETOLOGY METHOD 05/03/2025 2:30 PM EDT [facility] Hemoglobin 11.5 11.5 - 16.0 g/dL LAB HEMETOLOGY METHOD 05/03/2025 2:30 PM EDT [facility] Hematocrit 34.5(L) 35.0 - 47.0 % LAB HEMETOLOGY METHOD 05/03/2025 2:30 PM EDT [facility] MCV 86.9 79.0 - 98.0 FL LAB HEMETOLOGY METHOD [facility]/03[facility] MCH 29.0 27.0 - 32.0 pcg LAB HEMETOLOGY METHOD 05/03/2025 2[facility]30 [facility] MCHC 33.3 32.0 - 37.0 g/dL LAB HEMETOLOGY METHOD 05/03/2025 2:30 [facility] RDW 14.6 11.0 - 15.0 % LAB HEMETOLOGY METHOD 05/03/2025 2:30 PM EDT [facility] Platelets 144 130 - 400 K/mcL LAB HEMETOLOGY METHOD 05/03/2025 2:30 PM [facility] MPV 13.0(H) 7.0 - 11.0 FL LAB HEMETOLOGY METHOD 05/03/2025 2:30 [facility] NRBC 0.0 <1.0 % LAB HEMETOLOGY METHOD 05/03/2025 2:30 [facility] NRBC Absolute 0.00 <0.10 K/mcL LAB HEMETOLOGY METHOD 05/03/2025 2:30 PM [facility] Blood Venous blood specimen / Unknown Venipuncture / Unknown 05/03/2025 10:58 AM EDT 05/03/2025 10:58 AM EDT us Arden Kerr [employer] LAB BLOOD ORDERABLES Final Resul t Performing Organization Address City/[facility]/ZIP Co de Phone Number [facility] [address] [place] [address], [place] [phone] * Thyroid stimulating hormone (05/03/2025 10:58 AM EDT) TSH 2.36 0.40 - 4.00 mcIU/mL LAB CHEMISTRY METHOD 05/03/2025 4:31 PM EDT [facility] Blood Venous blood specimen / Unknown Venipuncture / Unknown 05/03/2025 10:58 AM EDT 05/03/2025 10:58 AM EDT Arden Kerr [employer] LAB BLOOD ORDERABLES Final Resul t Performing Organization Address [facility] Co de Phone Number [facility] [address] [place] [address], [place] [phone] * Magnesium (05/03/2025 10:58 AM EDT) [facility] Magnesium 2.0 1.9 - 2.6 mg/dL LAB CHEMISTRY METHOD 05/03/2025 3:16 PM EDT [facility] Blood Venous blood specimen / Unknown Venipuncture / Unknown 05/03/2025 10:58 AM EDT 05/03/2025 10:58 AM EDT Arden Kerr [employer] LAB BLOOD ORDERABLES Final Resul t Performing Organization Address [facility]/ZIP Co de Phone Number [facility] [address] [place] [address], [place] [phone] * Hemoglobin A1c (05/03/2025 10:58 AM EDT) Hemoglobin A1C 4.7 <6.5 % LAB CHEMISTRY METHOD 05/03/2025 9:08 PM EDT [facility] Mean Bld Glu Estim. 88 mg/dL LAB CHEMISTRY METHOD 05/03/2025 9:08 PM EDT [facility] Blood Venous blood specimen / Unknown Venipuncture / Unknown 05/03/2025 10:58 AM EDT 05/03/2025 10:58 AM EDT Arden Kerr [employer] LAB BLOOD ORDERABLES Final Resul t Performing Organization Address [facility]/ZIP Co de Phone Number [facility] [address] [place] [address], [place] [phone] * (ABNORMAL) Vitamin B12 (05/03/2025 10:58 AM EDT) Pathologist [facility] Vitamin B-12 1,765(H) 250 - 900 pcg/mL LAB CHEMISTRY METHOD 05/03/2025 3:45 PM EDT [facility] Blood Venous blood specimen / Unknown Venipuncture / Unknown 05/03/2025 10:58 AM EDT 05/03/2025 10:58 AM EDT Arden Kerr [employer]IP[employer] WORK[employer] LAB BLOOD ORDERABLES Final Resul t Performing Organization Address [facility] de Phone Number [facility] [address] [place] [address], [place] [phone] * (ABNORMAL) Comprehensive metabolic panel (05/03/2025 10:58 AM EDT) [facility] Sodium 139 133 - 145 mmol/L LAB CHEMISTRY METHOD 05/03/2025 3:45 PM EDT [facility] Potassium 3.1(L) 3.5 - 5.5 mmol/L LAB CHEMISTRY METHOD 05/03/2025 3:45 PM EDT [facility] Chloride 103 96 - 110 mmol/L LAB CHEMISTRY METHOD 05/03/2025 3:45 PM EDT [facility] CO2 26 21 - 32 mmol/L LAB CHEMISTRY METHOD 05/03/2025 3:45 PM [facility] Anion Gap 10 3 - 11 LAB CHEMISTRY METHOD 05/03/2025 3:45 PM [facility] Glucose 80 70 - 100 mg/dL LAB CHEMISTRY METHOD 05/03/2025 3:45 PM [facility] BUN 19 5 - 25 mg/dL LAB CHEMISTRY METHOD 05/03/2025 3:45 PM [facility] Creatinine 1.36(H) 0.50 - 1.10 mg/dL LAB CHEMISTRY METHOD 05/03/2025 3:45 PM [facility] eGFR 47(L) >=60 mL/min/1. 73m2 LAB CHEMISTRY METHOD 05/03/2025 3:45 PM [facility] Comment:Calculation based on the Chronic Kidney Disease Epidemiology Collaboration (CKD-EPI) equation refit without adjustment for race. BUN/Creatinine Ratio 14.0 LAB CHEMISTRY METHOD 05/03/2025 3:45 PM [facility] Calcium 10.0 8.5 - 10.5 mg/dL LAB CHEMISTRY METHOD 05/03/2025 3:45 PM [facility] AST (SGOT) 19 10 - 42 unit/L LAB CHEMISTRY METHOD 05/03/2025 3:45 PM [facility] ALT (SGPT) 22 10 - 60 unit/L LAB CHEMISTRY METHOD 05/03/2025 3:45 PM [facility] Alkaline Phosphatase 61 42 - 121 unit/L LAB CHEMISTRY METHOD 05/03/2025 3:45 PM [facility] Total Protein 6.9 6.0 - 8.0 g/dL LAB CHEMISTRY METHOD 05/03/2025 3:45 PM [facility] Albumin 3.7 3.2 - 5.0 g/dL LAB CHEMISTRY METHOD 05/03/2025 3:45 PM [facility] Total Bilirubin 1.7(H) 0.0 - 1.4 mg/dL LAB CHEMISTRY METHOD 05/03/2025 3:45 PM EDT [facility] Blood Venous blood specimen / Unknown Venipuncture / Unknown 05/03/2025 10:58 AM EDT 05/03/2025 10:58 AM EDT us Arden Kerr YUKO LAB BLOOD ORDERABLES Final Resul t [facility] [address] [place] [address], [place] [phone] * US Breast Limited bilat (04/28/2025 11:57 [...] Breasts. Mammo Location: [facility], [address] [place] [address], [id number], . -------- FINAL REPORT -------- Dictated By: Sarah Schreiber Dictated Date: 04/28/2025 13:04 ET Assigned Physician: Sarah Schreiber Reviewed and Electronically Signed By: Sarah Schreiber Signed Date: 04/28/2025 13:24 ET Workstation ID: [id number] Transcribed By: Self Edit Transcribed Date: 04/28/2025 [...] t * MG Mammo Digital Diagnostic w Med bilat (04/28/2025 11:52 AM EDT) Anatomical Region [...] Breasts. Mammo Location: [facility], [address] [place] [address], [id number], . -------- FINAL REPORT -------- Dictated By: Sarah Schreiber Dictated Date: 04/28/2025 13:04 ET Assigned Physician: Sarah Schreiber Reviewed and Electronically Signed By: Sarah Schreiber Signed Date: 04/28/2025 13:24 ET Workstation ID: [id number] Transcribed By: Self Edit Transcribed Date: 04/28/2025 [...] Resul t * COLONOSCOPY Anesthesia - MAC; SP ENDOSCOPY (11/06/2024 10:12 AM EST) Anatomical Region [...] results. Narrative 11/06/2024 10:[address] [facility] GI Patient Name: Rupinder Rico Procedure Date: 11/06/2024 10:14 AM Date of : 1975 Age: 49 Gender: Female Note Status: Finalized Attending MD: Danyelle Bautista DO, [id number] Procedure Date No Time: 11/06/2024 Procedure: Colonoscopy [...] the physician, the nurse, the anesthesiologist, the certified prosthetist vice president and the endoscopy specialty technician in the pre-procedure area in the [...] retroflexion views. Procedure Code(s): --- Professional --- 34396, Colonoscopy, flexible; with removal of tumor(s), polyp(s), or other lesion(s) by snare technique Diagnosis Code(s): --- Professional --- D12.5, Benign neoplasm of sigmoid colon K64.9, Unspecified hemorrhoids Z12.11, Encounter for screening for malignant neoplasm of colon CPT copyright 2020 [employer]. All rights reserved. The codes documented in this report are preliminary and upon ethnographer review may be revised to meet current compliance requirements. DANYELLE Bautista DO 11/06/2024 10:16:58 AM This report has been signed electronically.Danyelle Bautista DO Number of Addenda: 0 Note Initiated On: 11/06/2024 10:14 AM Endoscopy Department at [facility] - [address] [place] [phone] Procedure Note Danyelle Bautista DO - 11/06/2024 [facility] GI Patient Name: Rupinder Rico Procedure Date: 11/06/2024 10:14 AM Date of : 1975 Age: 49 Gender: Female Note Status: Finalized Attending MD: Danyelle Bautista DO, [id number] Procedure Date No Time: 11/06/2024 Procedure: Colonoscopy [...] the physician, the nurse, the anesthesiologist, the certified prosthetist vice president and thetechnician in the pre-procedure area in [...] retroflexion views. Procedure Code(s): --- Professional --- 41753, Colonoscopy, flexible; with removal of tumor(s), polyp(s), or other lesion(s) by snare technique Diagnosis Code(s): --- Professional --- D12.5, Benign neoplasm of sigmoid colon K64.9, Unspecified hemorrhoids Z12.11, Encounter for screening for malignantneoplasm of colon CPT copyright 2020 [employer]. All rights reserved. The codes documented in this report are preliminary and upon ethnographer reviewmay be revised to meet current compliance requirements. DANYELLE Bautista DO 11/06/2024 10:16:58 AM This report has been signed electronically.Danyelle Bautista DO Number of Addenda: 0 Note Initiated On: 11/06/2024 10:14 AM Endoscopy Department at [facility] - [address] [place] [phone] IMPRESSION: - Hemorrhoids found on perianal exam. [...] abstracted Historical Provider HEALTH MAINTENANCE Final Result from Last 3 Months or Most Recently Relevant to Health Maintenance Insurance [employer]AN Care Teams Cad Intern Relationship Specialty Start Date End Date Alyson Mojica MD [address] [place] [phone] [facility] - General 05/21/24
[2025-08-05 11:16] VITALS: BMI 36.8
--- NOTE | 2025-08-05 14:10 | HO.ANESPROP2 ---
Documented by User: Yvonne Katz NP 08/05/25 14:11 HPI - Anesthesia Eval Consult details Narrative: 50yo F for Upper Endoscopy PMFSH Active Problems Active Problems: All Active Problems Obesity (Acute) Congenital intra-abdominal adhesions (Acute) Gastric polyp (Acute) S/P laparoscopic sleeve gastrectomy (Acute) LVH (left ventricular hypertrophy) (Acute) Pre-op evaluation (Acute) Abnormal stress test (Acute) Abnormal EKG (Acute) Vitamin B12 deficiency (Acute) Hypokalemia (Acute) Hypertension (Acute) Morbid obesity (Acute) Past Medical History Medical History (Updated 04/19/25 @ 11:21 by LOUIS Yang) Hypertension Morbid obesity Family History Family History Mother No problems noted. Father No problems noted. Daughter No problems noted. Daughter No problems noted. Son No problems noted. Family history of problems with anesthesia: No Surgical History Surgical History (Updated 02/03/25 @ 10:18 by Shantel Vera CMA) S/P laparoscopic sleeve gastrectomy History of esophagogastroduodenoscopy (EGD) Hx of section History of Problems with Anesthesia: No Social History Social History Household Members: Family Housing: House Are you a primary health care facilities inspector to a significant other at home: No Do you presently have visiting nurse or other home services: No Alcohol intake: never Patient Tobacco Use Status: Never used Tobacco Second Hand Smoke Exposure: No Have you been hit, kicked, punched, or otherwise hurt by someone within the past year? If so, by whom?: No Are you DNR?: No Advance Directives: No Advance Directives Information Provided: Yes service: No Meds Allergies Allergy/AdvReac Type Severity Reaction Status Date / Time No Known Allergies Allergy Verified 02/03/25 10:17 Home Medications ?Medication ?Instructions ?Recorded ?Confirmed ?Last Taken ?Type docusate sodium 100 mg capsule 100 mg PO BID 09/03/24 08/09/25 01/24/25 History losartan 100 mg tablet 100 mg PO DAILY 09/03/24 08/09/25 08/09/25 History Held on 01/26/25. Instructions: Resume on 01/26/25. Only resume according to parameters given by Dr. Strickland amlodipine 5 mg tablet 5 mg PO DAILY 01/08/25 08/09/25 08/09/25 History Held on 01/26/25. Instructions: Resume on 01/27/25. Check your blood pressure every morning as soon as you wake up and send it to Dr. Strickland. Do no take the blood pressure medication if the blood pressure is below 120/70. Wait every day to hear back from Dr. Strickland before you take the medication. hydrochlorothiazide 25 mg tablet 25 mg PO DAILY 01/25/25 08/09/25 08/09/25 History Held on 01/26/25. Instructions: Resume on 01/27/25. Check your blood pressure every morning as soon as you wake up and send it to Dr. Strickland. Do no take the blood pressure medication if the blood pressure is below 120/70. Wait every day to hear back from Dr. Strickland before you take the medication. Exam Height,Weight and Vital Signs: Height 5 ft 7 in Weight 106.594 kg Narrative Narrative: EKG 2023 Vent. Rate : 075 BPM Atrial Rate : 075 BPM P-R Int : 170 ms QRS Dur : 108 ms QT Int : 424 ms P-R-T Axes : 052 015 134 degrees QTc Int : 473 ms Normal sinus rhythm Minimal voltage criteria for LVH, may be normal variant ( [place] product ) T wave abnormality, consider lateral ischemia Prolonged QT Abnormal ECG No previous ECGs available ECHO 11/2024 Conclusions: - The left ventricular systolic function is normal. The calculated ejection fraction is 65% by biplane method. - No obvious valvular pathology seen on this study. - There is mild dilatation of the ascending aorta measuring 4.00 cm. Exercise Stress 11/2024 Protocol: JEFFREY Max HR: 171 BPM 101% of Pred: 169 BPM Max BP: 248/120 mmHG Max Work Load: 4.6 METS Exercise Stress Test with exercise 3 mins 5 secs of Jeffrey Protocol, held at stage 1, achieving 98% MPHR, reports of severe SOB, requesting to stop, no chest discomfort, without any arrythmias, with baseline BP 128/70 that went up to 248/120 with exercise. With EKG changes meeting criteria for ischemia - ST depression noted inferiorly and in V4-V6. In recovery, continues to deny chest discomfort, breathing returned to baseline. 23 minutes into recovery and EKGs improved very gradually. BP improved to 148/98. Recommend further testing with Cardiology referral, if needed. Test reviewed with Dr. Lozada. Stress ECHO 2024 Findings : At rest images were of good quality. There is normal LV systolic function with normal wall motion. Post exercise images are of adequate quality. There is good augmentation of overall LV systolic function with no regional wall motion abnormalities. Conclusion : Stress echo is negative for ischemia. Assessment and Plan Assessment Anesthesia Assessment: Chart Reviewed Final Anesthetic Review Family History of Problems with Anesthesia: No History of Problems with Anesthesia: No Documented by User: Farida Littlejohn MD 08/09/25 07:56 [facility] Past Medical History Medical History (Updated 04/19/25 @ 11:21 by LOUIS Yang) Hypertension Morbid obesity Family History Family History Mother No problems noted. Father No problems noted. Daughter No problems noted. Daughter No problems noted. Son No problems noted. Surgical History Surgical History (Updated 02/03/25 @ 10:18 by Shantel Vera CMA) S/P laparoscopic sleeve gastrectomy History of esophagogastroduodenoscopy (EGD) Hx of section Social History Social History Household Members: Family Housing: House Are you a primary health care facilities inspector to a significant other at home: No Do you presently have visiting nurse or other home services: No Alcohol intake: never Patient Tobacco Use Status: Never used Tobacco Second Hand Smoke Exposure: No Have you been hit, kicked, punched, or otherwise hurt by someone within the past year? If so, by whom?: No Are you DNR?: No Advance Directives: No Advance Directives Information Provided: Yes service: No Meds Allergies Allergy/AdvReac Type Severity Reaction Status Date / Time No Known Allergies Allergy Verified 02/03/25 10:17 Home Medications ?Medication ?Instructions ?Recorded ?Confirmed ?Last Taken ?Type docusate sodium 100 mg capsule 100 mg PO BID 09/03/24 08/09/25 01/24/25 History losartan 100 mg tablet 100 mg PO DAILY 09/03/24 08/09/25 08/09/25 History Held on 01/26/25. Instructions: Resume on 01/26/25. Only resume according to parameters given by Dr. Strickland amlodipine 5 mg tablet 5 mg PO DAILY 01/08/25 08/09/25 08/09/25 History Held on 01/26/25. Instructions: Resume on 01/27/25. Check your blood pressure every morning as soon as you wake up and send it to Dr. Strickland. Do no take the blood pressure medication if the blood pressure is below 120/70. Wait every day to hear back from Dr. Strickland before you take the medication. hydrochlorothiazide 25 mg tablet 25 mg PO DAILY 01/25/25 08/09/25 08/09/25 History Held on 01/26/25. Instructions: Resume on 01/27/25. Check your blood pressure every morning as soon as you wake up and send it to Dr. Strickland. Do no take the blood pressure medication if the blood pressure is below 120/70. Wait every day to hear back from Dr. Strickland before you take the medication. Exam Airway Mallampati Class: II TM Dist: >3cm Neck ROM: Full Heart: rrr Lungs: cta Assessment and Plan Assessment Anesthesia Assessment: Anesthesia Plan Discussed Final Anesthetic Review NPO: Yes ASA Class: III Final Preanesthetic Review: No Changes in Pt Med Stat, Meds/Allgs Chart Reviewed and Consent Obtained/Reviewed Patient Risk: Intermediate Procedure Risk: Intermediate Anesthetic Plan Anesthetic Plan: MAC: Disposition: Standard PACU
[2025-08-09 06:48] VITALS: BP 175/83; PULSE 56; RESP 18; TEMP 36.4; O2SAT 98; BMI 16.0
[2025-08-09] MEDS: Lactated Ringers 1,000 ML 100 ML IVCONT (07:06)
--- NOTE | 2025-08-09 07:37 | MHC.SHP ---
Pre-Procedural Eval Section A - 24 Hr Update-Section A only Date of Service: 08/09/25 The patient is an INPATIENT: No The patient has been examined within 24 hours of the surgical procedure. The History & Physical has been completed within 30 days and I have reviewed it.: No Section B - Complete if H&P > 30 days Chief Complaint: Gastric intestinal metaplasia, unspecified Relevant Family History (Specify if Yes): No Relevant Social History: None Present Medications: None Medical History: No relevant PMH History of Previous Operations: Relevant previous surgery/procedure and date(s) (laparoscopic sleeve gastrectomy) Allergies: Allergies Allergy/AdvReac Type Severity Reaction Status Date / Time No Known Allergies Allergy Verified 02/03/25 10:17 Review of Systems Sugical H&P ROS: Negative: Constitution, Cardiovascular, Respiratory, Neurological, Psychiatric, Hem-Onc, Allergic/Immunologic, Gastrointestinal, Genitourinary, Musculoskeletal, Integumentary, Endocrine and Eyes/Ears/Nose/Throat Exam Surgical H&P Exam: Normal: HEENT, Normal: Heart, Normal: Lungs, Normal: Extremities, Normal: Abdomen, Normal: Skin and Normal: Neurological Plan Diagnosis/Plan: Unchanged (EGD to assess the stomach's anatomy. Risks of bleeding and perforation were discussed with the patient and she is in agreement with the plan.) I have reviewed the history and physical and performed a pertinent physical examination on my patient. No changes have occurred unless specified. Time Spent With Patient Time: Total time managing care of this patient today ____ minutes.
--- NOTE | 2025-08-09 07:38 | P.BOP_ITS ---
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 Normal endoscopy PROCEDURE: Lubtawki-fwzqgj-mphcweymknug with biopsies Surgeon: ?Randolph Strickland M.D.. Ph.D. Software Development Intern: None ? Anesthesia: IV sedation Estimated blood loss: ?Minimal FINDINGS AND PROCEDURE: ? OPERATIVE INDICATIONS: ?The patient is a 50 year old female known to me who underwent a laparoscopic sleeve gastrectomy. The patient had remarkable weight loss so far and had a completely uneventful recovery.? The patient has no symptoms. This endoscopy is performed because at the preop EGD a type of gastritis that can progess to cancer was discovered. This is for surveilance. Risks and complications of the surgery were discussed with the patient in advance particularly the possibility of perforation or bleeding that may require surgical intervention. The patient understood the risks and was in agreement with the plan. ? PROCEDURE: After informed consent was obtained by the patient, the patient was ?transferred to the Operating Room and was placed in the supine position.? After successful induction of IV sedation, a mouth block was inserted and the patient was placed in the left lateral decubitus position. An upper endoscopy was performed next, the oropharynx and esophagus appeared within the normal limits. There was no hiatal hernia. The z-line was smooth. One biopsy was obtained from the distal esophagus 2-3 cm proximal to the GE junction and one additional biopsy from the GE junction. The sleeve was entered and it appeared to be of normal size. There was no gastritis. There was no stricture or ulcer. Biopsies were obtained from the proximal sleeve as well as the distal antrum. No significant bleeding was noted from any of the biopsy sites. The scope was then advanced into the duodenum which appeared to be normal as well. A biopsy was obtained from there as well. . At that point the duodenum ?and the sleeve were decompressed and the scope was withdrawn from the patient's mouth. The patient extubated and was transferred in stable condition to the Recovery Room for further care. I was present and performed all steps of the procedure. There were no residents to assist with this case. Randolph Strickland M.D., Ph.D. Surgeon: Nolan Strickland MD Anesthesia: MAC Was an Software Development Intern used for this Procedure?: No Estimated blood loss (mL): 0 IV fluids (mL): 400 Urine output (mL): 0 (No Chavez to record output) Pathology: other (1) antrum x1, 2) proximal sleeve/gastric fundus x1, 3) EGJ x1, 4) distal esophagus x1, 5) duodenum x1) Condition: stable Disposition: PACU
[2025-08-09 08:19] VITALS: BP 110/72; PULSE 54; RESP 12; TEMP 36.6; O2SAT 98
[2025-08-09 08:29] VITALS: BP 104/74; PULSE 58; RESP 16; TEMP 36.1; O2SAT 97
== END 2025-08-09 09:04 | disposition home or self-care (01) ==
PROVIDERS: PCP Internal Medicine; Visit Provider Surgery
PROC: 0DJ08ZZ Inspection of Upper Intestinal Tract, Via Natural or Artificial Opening Endoscopic (ICD-10-PCS; CPT 43235; principal; 2025-08-09 08:00)
DX: K31.A0 Gastric intestinal metaplasia, unspecified (principal); E66.9 Obesity, unspecified; Z68.36 Body mass index [BMI] 36.0-36.9, adult; K29.50 Unspecified chronic gastritis without bleeding; Z98.84 Bariatric surgery status; Z90.3 Acquired absence of stomach [part of]; I10 Essential (primary) hypertension; Z79.899 Other long term (current) drug therapy
CPT/HCPCS: 43239; 88305; 88313; 88342; J2003; J2250; J2704

== ENCOUNTER → 2025-08-09 06:42 | Outpatient (BNV) | payer OTHER, SELFPAY | PROVIDERS: PCP Internal Medicine; Visit Provider Surgery | DX: K29.70 Gastritis, unspecified, without bleeding (principal) | CPT/HCPCS: 43239 ==

== ENCOUNTER 2025-09-02 12:20 | Day surgery (SDC) | payer OTHER, SELFPAY ==
--- OUTSIDE RECORDS SUMMARY | 2025-08-25 20:36 | XMS_ITS | Clinical Summary ---
Author Organization [facility] Address [address] [place] [address] Phone Care Team Providers Care Flare Man Name Role Phone Alyson Mojica MD Primary Care Provider [phone] Allergies No known active allergies Medications polyethylene [...] Date Diagnosed Date Constipation 09/15/2024 Morbid obesity ([facility] V24, [facility] V28) 2023 Primary hypertension 09/15/2024 Encounters Date Type Department Care Team Description 08/09/2025 1:00 PM EDT Office Visit Internal Medicine - [address] [place] [address] Arden Kerr NP Routine adult health maintenance (Primary Dx); Screening for ischemic heart disease; Screening for diabetes mellitus; Vitamin B12 deficiency; Vitamin D deficiency; Primary hypertension; Hypokalemia; Anemia, unspecified type; BMI 33.0-33.9,adult; S/P gastric sleeve procedure; High cholesterol from Last 3 Months Surgical History Surgery Date Site/Laterality Comments SECTION N/A PROCEDURE: HISTORICAL DELIVERY TUBAL LIGATION PROCEDURE: HISTORICAL TUBAL LIGATION Medical History Medical History Date Comments HTN (hypertension) DX:HTN (hyper tension) Chronic constipation Morbid obesity ([facility] V24, [facility] V28) Family History Medical History Relation Name [...] for your loved ones. For example, children's literature professor or elderly care for an older adult? [...] Date Recorded What is your living situation? Unrecognized valu e 10/19/2024 Interpersonal Safety Answer Date Record ed Physical Abuse Unrecognized value 11/06/2024 Verbal Abuse Unrecognized value 11/06/2024 Comments No Sex and Gender Information Value Date Recorded Sex Assigned at Not on file Legal Sex Female 11:05 AM EDT Gender Identity Not on file Sexual Orientation Not on file Obstetrics History Para Term AB IAB SAB Ectopic Multiple Livin g Live Births 2 Last Filed Vital Signs Vital Sign Reading Time Taken Comments Blood Pressure 131/76 08/09/2025 1:08 PM EDT Pulse 57 08/09/2025 1:08 PM EDT Temperature 36.2 C (97.1 F) 08/09/2025 1:08 PM EDT Respiratory Rate 17 11/06/2024 10:33 AM EST Oxygen Saturation 98% 08/09/2025 1:08 PM EDT Inhaled Oxygen Concentration - - Weight 100 kg (221 lb) 08/09/2025 1:08 PM EDT Height 172.7 cm (5' 7.99 ) 05/03/2025 10:23 AM E DT Body Mass Index 33.61 05/03/2025 10:23 AM EDT Plan of Treatment Upcoming Encounters Date Type Department Care Team (Late st Contact Info) Description 08/27/2025 8:30 AM EDT Office Visit Internal Medicine [facility] [address] [phone] Arden Kerr NP [address] [address] 10/29/2025 9:30 AM EST Office Visit Internal Medicine [facility] [address] [phone] Alyson Mojica MD [address] [phone] 11/02/2025 9:30 AM EST Appointment [facility] [address] [place] [phone] Health Maintenance Due Date Last Done Comments DTaP,Tdap,and Td Vaccines (1 - Tdap) 1992 Hepatitis B Vaccines (1 of 3 - 19+ 3-dose series) 1992 Pneumococcal Vaccine: 50+ Years (1 of 1 - PCV) 2023 Zoster Vaccines (1 of 2) 2023 HIV Screening 06/05/2024 Hepatitis C Screening 06/05/2024 COVID-19 Vaccine ( - season) 2025 Influenza Vaccine (#1) 2025 Social Influencers of Health Screening 10/19/2025 10/19/2024 Hypertension/CHF/CAD Annual BMP Blood Test 05/03/2026 05/03/2025, 10/19/2024, 05/26/2024 Breast Cancer Screening 04/28/2027 04/28/20 25, 09/15/2024, 09/03/2024, Additional history exists Colorectal Cancer Screening: Colonoscopy 11/06/2027 11/06/2024 Cervical Cancer Screening: HPV 08/17/2029 08/17/2024 Cholesterol Screening (Lipid Panel) 05/03/2030 05/03/2025, 05/26/2024 RSV Immunization Adult Patients (1 - 1-dose 75+ series) 2048 Depression Screening Completed 04/27/2025 HIB Vaccines Aged [...] Procedure Name Priority Date/Time Associated Diagnosis Comments COMPREHENSIVE METABOLIC PANEL Routine 05/03/2025 10:58 AM EDT Primary hypertension LIPID PANEL WITH REFLEX TO DIRECT LDL Routine 05/03/2025 10:58 AM EDT Screening for ischemic heart disease MG MAMMO DIGITAL DIAGNOSTIC W MED BILAT Routine 04/28/2025 11:52 AM EDT Encounter for screening mammogram for breast cancer COLONOSCOPY Routine 11/06/2024 10:12 AM EST Special screening for malignant neoplasms, colon HPV Routine 08/17/2024 from Last 3 Months or Most Recently Relevant to Health Maintenance Results * (ABNORMAL) Lipid panel with reflex to direct LDL (05/03/2025 10:58 AM EDT) Cholesterol 309(H) 0 - 200 mg/dL LAB CHEMISTRY METHOD 05/03/2025 3:45 PM EDT [facility] Triglycerides 92 0 - 150 mg/dL LAB CHEMISTRY METHOD 05/03/2025 3:45 PM EDT [facility] HDL 61 >=40 mg/dL LAB CHEMISTRY METHOD 05/03/2025 3:45 PM EDT [facility] LDL Calculated 230(H) 0 - 100 mg/dL LAB CHEMISTRY METHOD 05/03/2025 3:45 PM EDT [facility] VLDL Cholesterol Michele 18.4 mg/dL LAB CHEMISTRY METHOD 05/03/2025 3:45 PM EDT [facility] Non HDL Chol. (LDL+VLDL) 248(H) <145 mg/dL LAB CHEMISTRY METHOD 05/03/2025 3:45 PM EDT [facility] Chol/HDL Ratio 5.1(H) 0.0 - 4.4 LAB CHEMISTRY METHOD 05/03/2025 3:45 PM EDT [facility] Blood Venous blood specimen / Unknown Venipuncture / Unknown 05/03/2025 10:58 AM EDT 05/03/2025 10:58 AM EDT us Arden Kerr NP LAB BLOOD ORDERABLES Final Resul t [facility] [address] [place] [address], [place] [phone] * (ABNORMAL) Comprehensive metabolic panel (05/03/2025 10:58 AM EDT) Sodium 139 133 - 145 mmol/L LAB CHEMISTRY METHOD 05/03/2025 3:45 PM [facility] Potassium 3.1(L) 3.5 - 5.5 mmol/L LAB CHEMISTRY METHOD 05/03/2025 3:45 PM [facility] Chloride 103 96 - 110 mmol/L LAB CHEMISTRY METHOD 05/03/2025 3:45 PM [facility] CO2 26 21 - 32 mmol/L LAB CHEMISTRY METHOD 05/03/2025 3:45 PM [facility] Anion Gap 10 3 [...] unit/L LAB CHEMISTRY METHOD 05/03/2025 3:45 PM EDT [facility] Total Protein 6.9 6.0 - 8.0 g/dL LAB CHEMISTRY METHOD 05/03/2025 3:45 PM EDT [facility] Albumin 3.7 3.2 - 5.0 g/dL LAB CHEMISTRY METHOD 05/03/2025 3:45 PM EDT [facility] Total Bilirubin 1.7(H) 0.0 - 1.4 mg/dL LAB CHEMISTRY METHOD 05/03/2025 3:45 PM EDT [facility] Blood Venous blood specimen / Unknown Venipuncture / Unknown 05/03/2025 10:58 AM EDT 05/03/2025 10:58 AM EDT us Arden Kerr NP LAB BLOOD ORDERABLES Final Resul t [facility] [address] [place] [address], [place] [phone] * MG Mammo Digital Diagnostic w Med [...] Breasts. Mammo Location: [facility], [address] [place], [place], [address], . -------- FINAL REPORT -------- Dictated By: Sarah Schreiber Dictated Date: 04/28/2025 13:04 ET Assigned Physician: Sarah Schreiber Reviewed and Electronically Signed By: Sarah Schreiber Signed Date: 04/28/2025 13:24 ET Workstation ID: [id number] Transcribed By: Self Edit Transcribed Date: 04/28/2025 [...] Resul t * COLONOSCOPY Anesthesia - MAC; [facility] ENDOSCOPY (11/06/2024 10:12 AM [...] pathology results. Narrative 11/06/2024 10:17 AM EST [facility] Patient Name: Rupinder Rico Procedure Date: 11/06/2024 10:14 AM Date of : 1975 Age: 49 Gender: Female Note Status: Finalized Attending MD: Danyelle Bautista DO, [id number] Procedure Date No Time: 11/06/2024 Procedure: Colonoscopy [...] the physician, the nurse, the anesthesiologist, the lube technician and the quality assurance/r&d lab technician in the pre-procedure area in the [...] retroflexion views. Procedure Code(s): --- Professional --- 01299, Colonoscopy, flexible; with removal of tumor(s), polyp(s), or other lesion(s) by snare technique Diagnosis Code(s): --- Professional --- D12.5, Benign neoplasm of sigmoid colon K64.9, Unspecified hemorrhoids Z12.11, Encounter for screening for malignant neoplasm of colon CPT copyright 2020 [employer]. All rights reserved. The codes documented in this report are preliminary and upon tray server review may be revised to meet current compliance requirements. DANYELLE Bautista DO 11/06/2024 10:16:58 AM This report has been signed electronically.Danyelle Bautista DO Number of Addenda: 0 Note Initiated On: 11/06/2024 10:14 AM Endoscopy Department at [facility] - [address] [place] [phone] Procedure Note Danyelle Bautista DO - 11/06/2024 [facility] Patient Name: Rupinder Rico Procedure Date: 11/06/2024 10:14 AM Date of : 1975 Age: 49 Gender: Female Note Status: Finalized Attending MD: Danyelle Bautista DO, [id number] Procedure Date No Time: 11/06/2024 Procedure: Colonoscopy [...] the physician, the nurse, the anesthesiologist, the lube technician and thetechnician in the pre-procedure area in [...] retroflexion views. Procedure Code(s): --- Professional --- 97103, Colonoscopy, flexible; with removal of tumor(s), polyp(s), or other lesion(s) by snare technique Diagnosis Code(s): --- Professional --- D12.5, Benign neoplasm of sigmoid colon K64.9, Unspecified hemorrhoids Z12.11, Encounter for screening for malignantneoplasm of colon CPT copyright 2020 [employer]. All rights reserved. The codes documented in this report are preliminary and upon tray server reviewmay be revised to meet current compliance requirements. DANYELLE Bautista DO 11/06/2024 10:16:58 AM This report has been signed electronically.Danyelle Bautista DO Number of Addenda: 0 Note Initiated On: 11/06/2024 10:14 AM Endoscopy Department at [facility] - [address] [place] [phone] IMPRESSION: - Hemorrhoids found on perianal exam. [...] Health Maintenance Insurance [employer] Care Teams Flare Man Relationship Specialty Start Date End Date Alyson Mojica MD [address] [place] [phone] PCP - General 05/21/24
--- NOTE | 2025-08-30 14:55 | HO.ANESPROP2 ---
Documented by User: Yvonne Katz NP 08/30/25 14:58 HPI - Anesthesia Eval Consult details Narrative: 50yo F for Upper Endo Munoz s/p gastric sleeve 01/2025 [facility] Active Problems Active Problems: All Active Problems Obesity (Acute) Congenital intra-abdominal adhesions (Acute) Gastric polyp (Acute) S/P laparoscopic sleeve gastrectomy (Acute) LVH (left ventricular hypertrophy) (Acute) Pre-op evaluation (Acute) Abnormal stress test (Acute) Abnormal EKG (Acute) Vitamin B12 deficiency (Acute) Hypokalemia (Acute) Hypertension (Acute) Morbid obesity (Acute) Past Medical History Medical History Menopause Hypertension Morbid obesity Family History Family History Mother No problems noted. Father No problems noted. Daughter No problems noted. Daughter No problems noted. Son No problems noted. Family history of problems with anesthesia: No Surgical History Surgical History S/P laparoscopic sleeve gastrectomy History of esophagogastroduodenoscopy (EGD) Hx of section History of Problems with Anesthesia: No Social History Social History Household Members: Family Housing: House Are you a primary gericare aide teacher to a significant other at home: No Do you presently have visiting nurse or other home services: No Alcohol intake: never Patient Tobacco Use Status: Never used Tobacco Second Hand Smoke Exposure: No Have you been hit, kicked, punched, or otherwise hurt by someone within the past year? If so, by whom?: No Advance Directives: No Advance Directives Information Provided: Yes service: No Meds Allergies Allergy/AdvReac Type Severity Reaction Status Date / Time No Known Allergies Allergy Verified 02/03/25 10:17 Home Medications ?Medication ?Instructions ?Recorded ?Confirmed ?Last Taken ?Type docusate sodium 100 mg capsule 100 mg PO BID 09/03/24 08/31/25 01/24/25 History losartan 100 mg tablet 100 mg PO DAILY 09/03/24 08/31/25 09/02/25 History Held on 01/26/25. Instructions: Resume on 01/26/25. Only resume according to parameters given by Dr. Strickland amlodipine 5 mg tablet 5 mg PO DAILY 01/08/25 08/31/25 09/02/25 History Held on 01/26/25. Instructions: Resume on 01/27/25. Check your blood pressure every morning as soon as you wake up and send it to Dr. Strickland. Do no take the blood pressure medication if the blood pressure is below 120/70. Wait every day to hear back from Dr. Strickland before you take the medication. hydrochlorothiazide 25 mg tablet 25 mg PO DAILY 01/25/25 08/31/25 09/02/25 History Held on 01/26/25. Instructions: Resume on 01/27/25. Check your blood pressure every morning as soon as you wake up and send it to Dr. Strickland. Do no take the blood pressure medication if the blood pressure is below 120/70. Wait every day to hear back from Dr. Strickland before you take the medication. Exam Narrative Narrative: EKG 2023 Vent. Rate : 075 BPM Atrial Rate : 075 BPM P-R Int : 170 ms QRS Dur : 108 ms QT Int : 424 ms P-R-T Axes : 052 015 134 degrees QTc Int : 473 ms Normal sinus rhythm Minimal voltage criteria for LVH, may be normal variant ( [place] product ) T wave abnormality, consider lateral ischemia Prolonged QT Abnormal ECG No previous ECGs available ECHO 11/2024 Conclusions: - The left ventricular systolic function is normal. The calculated ejection fraction is 65% by biplane method. - No obvious valvular pathology seen on this study. - There is mild dilatation of the ascending aorta measuring 4.00 cm. Exercise Stress 11/2024 Protocol: KEVIN Max HR: 171 BPM 101% of Pred: 169 BPM Max BP: 248/120 mmHG Max Work Load: 4.6 METS Exercise Stress Test with exercise 3 mins 5 secs of Kevin Protocol, held at stage 1, achieving 98% MPHR, reports of severe SOB, requesting to stop, no chest discomfort, without any arrythmias, with baseline BP 128/70 that went up to 248/120 with exercise. With EKG changes meeting criteria for ischemia - ST depression noted inferiorly and in V4-V6. In recovery, continues to deny chest discomfort, breathing returned to baseline. 23 minutes into recovery and EKGs improved very gradually. BP improved to 148/98. Recommend further testing with Cardiology referral, if needed. Test reviewed with Dr. Lozada. Stress ECHO 2024 Findings : At rest images were of good quality. There is normal LV systolic function with normal wall motion. Post exercise images are of adequate quality. There is good augmentation of overall LV systolic function with no regional wall motion abnormalities. Conclusion : Stress echo is negative for ischemia. Assessment and Plan Assessment Anesthesia Assessment: Chart Reviewed Final Anesthetic Review Family History of Problems with Anesthesia: No History of Problems with Anesthesia: No Documented by User: Li Yanes MD 09/02/25 14:19 PMFSH Past Medical History Medical History Menopause Hypertension Morbid obesity Family History Family History Mother No problems noted. Father No problems noted. Daughter No problems noted. Daughter No problems noted. Son No problems noted. Surgical History Surgical History S/P laparoscopic sleeve gastrectomy History of esophagogastroduodenoscopy (EGD) Hx of section Social History Social History Household Members: Family Housing: House Are you a primary gericare aide teacher to a significant other at home: No Do you presently have visiting nurse or other home services: No Alcohol intake: never Patient Tobacco Use Status: Never used Tobacco Second Hand Smoke Exposure: No Have you been hit, kicked, punched, or otherwise hurt by someone within the past year? If so, by whom?: No Advance Directives: No Advance Directives Information Provided: Yes service: No Meds Allergies Allergy/AdvReac Type Severity Reaction Status Date / Time No Known Allergies Allergy Verified 02/03/25 10:17 Home Medications ?Medication ?Instructions ?Recorded ?Confirmed ?Last Taken ?Type docusate sodium 100 mg capsule 100 mg PO BID 09/03/24 08/31/25 01/24/25 History losartan 100 mg tablet 100 mg PO DAILY 09/03/24 08/31/25 09/02/25 History Held on 01/26/25. Instructions: Resume on 01/26/25. Only resume according to parameters given by Dr. Strickland amlodipine 5 mg tablet 5 mg PO DAILY 01/08/25 08/31/25 09/02/25 History Held on 01/26/25. Instructions: Resume on 01/27/25. Check your blood pressure every morning as soon as you wake up and send it to Dr. Strickland. Do no take the blood pressure medication if the blood pressure is below 120/70. Wait every day to hear back from Dr. Strickland before you take the medication. hydrochlorothiazide 25 mg tablet 25 mg PO DAILY 01/25/25 08/31/25 09/02/25 History Held on 01/26/25. Instructions: Resume on 01/27/25. Check your blood pressure every morning as soon as you wake up and send it to Dr. Strickland. Do no take the blood pressure medication if the blood pressure is below 120/70. Wait every day to hear back from Dr. Strickland before you take the medication. Exam Airway Mallampati Class: II TM Dist: >3cm Neck ROM: Full Loose/Missing/Broken Teeth: No Heart: RRR Lungs: CTA Assessment and Plan Assessment Anesthesia Assessment: Anesthesia Plan Discussed Final Anesthetic Review NPO: Yes ASA Class: II Final Preanesthetic Review: Meds/Allgs Chart Reviewed, Consent Obtained/Reviewed and Anes Risks/Benef Reviewed Patient Risk: Low Procedure Risk: Intermediate Anesthetic Plan Anesthetic Plan: MAC: Disposition: Standard PACU
[2025-08-31 11:49] VITALS: BMI 16.0
[2025-09-02 12:22] VITALS: BP 149/80; PULSE 78; RESP 18; TEMP 36.4; O2SAT 98; BMI 34.2
[2025-09-02] MEDS: Lactated Ringers 1,000 ML 100 ML IVCONT (12:43)
--- NOTE | 2025-09-02 14:19 | P.HPSUR_ITS ---
Pre-Procedural Eval Section A - 24 Hr Update-Section A only Date of Service: 09/02/25 The patient is an INPATIENT: No The patient has been examined within 24 hours of the surgical procedure. The History & Physical has been completed within 30 days and I have reviewed it.: Yes Section B - Complete if H&P > 30 days Chief Complaint: gerd, Details of Present Illness: Polyps and gastritis Relevant Family History (Specify if Yes): No Relevant Social History: None Present Medications: None Medical History: No relevant PMH History of Previous Operations: Relevant previous surgery/procedure and date(s) (Lap sleeve gastrectomy) Allergies: Allergies Allergy/AdvReac Type Severity Reaction Status Date / Time No Known Allergies Allergy Verified 02/03/25 10:17 Review of Systems Sugical H&P ROS: Negative: Constitution, Cardiovascular, Respiratory, Neurological, Psychiatric, Hem-Onc, Allergic/Immunologic, Gastrointestinal, Genitourinary, Musculoskeletal, Integumentary, Endocrine and Eyes/E ars/Nose/Throat Exam Surgical H&P Exam: Normal: HEENT, Normal: Heart, Normal: Lungs, Normal: Extremities, Normal: Abdomen, Normal: Skin and Normal: Neurological Plan Diagnosis/Plan: Unchanged (EGD with Munoz to assess etiology of GERD. Risks of bleeding and perforation were discussed with the patient and she is in agreement with the plan.) I have reviewed the history and physical and performed a pertinent physical examination on my patient. No changes have occurred unless specified. Time Spent With Patient Time: Total time managing care of this patient today ____ minutes.
--- NOTE | 2025-09-02 14:26 | MHC.SHP ---
Pre-Procedural Eval Section A - 24 Hr Update-Section A only Date of Service: 09/02/25 The patient is an INPATIENT: No The patient has been examined within 24 hours of the surgical procedure. The History & Physical has been completed within 30 days and I have reviewed it.: Yes Section B - Complete if H&P > 30 days Chief Complaint: gerd, Details of Present Illness: Gastric polyps and gastritis Relevant Family History (Specify if Yes): No Relevant Social History: None Allergies: Allergies Allergy/AdvReac Type Severity Reaction Status Date / Time No Known Allergies Allergy Verified 02/03/25 10:17 Plan I have reviewed the history and physical and performed a pertinent physical examination on my patient. No changes have occurred unless specified. Time Spent With Patient Time: Total time managing care of this patient today ____ minutes.
--- NOTE | 2025-09-02 14:26 | PM.OP ---
Brief Operative Note Date of Service: 09/02/25 Procedure: PROCEDURE DATE: 09/02/2025 PREOPERATIVE DIAGNOSIS: GERD POSTOPERATIVE DIAGNOSIS: ?Same as above. 1) duodenal polyp PROCEDURE: Urwpjhde-cfuinb-vqcvtiviaoab with biopsies and Munoz procedure Surgeon: ?Randolph Strickland M.D.. Ph.D. Casino Worker: None ? Anesthesia: IV sedation Estimated blood loss: ?Minimal FINDINGS AND PROCEDURE: ? OPERATIVE INDICATIONS: ?The patient is a 50 year old female who underwent a sleeve gastrectomy. Preoperatively she had 2 large polyps in the stomach and biopsies revealed widespread atrophy and intestinal metaplasia. In addition she complains of GERD despite use of PPIs. Based on this information I recommended an upper endoscopy with biopsies and the Munoz procedure to evaluate the patient's symptoms and assess her GERD. Risks and complications of the surgery were discussed with the patient in advance particularly the possibility of perforation or bleeding that may require surgical intervention. The patient understood the risks and was in agreement with the plan. ? PROCEDURE: After informed consent was obtained by the patient, the patient was ?transferred to the Operating Room and was placed in the supine position.? After successful induction of IV sedation, a mouth block was inserted and the patient was placed in the left lateral decubitus position. An upper endoscopy was performed next, the oropharynx and esophagus appeared within the normal limits. There was a small hiatal hernia. The z-line was smooth. One biopsy was obtained from the GE junction. The stomach was entered and it appeared to be of normal size. There was mild gastritis at distal antrum. There was no stricture or ulcer. A biopsy was obtained from the distal antrum and the proximal sleeve. No significant bleeding was noted from any of the biopsy sites. There was no residual polyp in the stomach suggestive of being removed with the stomach specimen during sleeve gastrectomy. The scope was then advanced into the duodenum. There was a large polyp with a wide stalk at the 1st portion of the duodenum. Three biopsies were obtained. At that point the duodenum ?and the stomach were decompressed and the scope was withdrawn to the GE junction. We measured 6 cm proximal from the GEJ and that was about 30cm from incisors. The scope was withdrawn from the mouth and the Munoz device was introduced to 30cm from incisors. The scope was re-introduced to confirm that the probe was in the esophagus and it was. The scope was withdrawn from the patient's mouth. Suction was connected to the device and was kept on for 45sec. At that point the device was deployed without difficulty and the remaining of the device was withdrawn from the patient's mouth without difficulty. The endoscope was re-introduced and I confirmed that the device was properly deployed in the esophagus at the intended location. At that point the scope was withdrawn from the patient's mouth and the procedure was ended. The patient extubated and was transferred in stable condition to the Recovery Room for further care. I was present and performed all steps of the procedure. There were no residents to assist with this case. Randolph Strickland M.D., Ph.D. Surgeon: Nolan Strickland MD Anesthesia: MAC Was an Casino Worker used for this Procedure?: No Estimated blood loss (mL): 0 IV fluids (mL): 400 Urine output (mL): 0 (No Chavez to record output) Pathology: other (1) antrum x1, 2) fundus x1, 3) GE junction x1, 4) duodenal polyp x3) Condition: stable Disposition: PACU
[2025-09-02 14:55] VITALS: BP 129/79; PULSE 70; RESP 12; TEMP 36.1; O2SAT 97
[2025-09-02 15:10] VITALS: BP 130/73; PULSE 53; RESP 14; TEMP 36.1; O2SAT 98
== END 2025-09-02 16:12 | disposition home or self-care (01) ==
PROVIDERS: PCP Internal Medicine; Visit Provider Surgery
PROC: (CPT 43239; principal; 2025-09-02 14:40)
DX: K21.9 Gastro-esophageal reflux disease without esophagitis (principal); E66.01 Morbid (severe) obesity due to excess calories; Z68.36 Body mass index [BMI] 36.0-36.9, adult; K31.7 Polyp of stomach and duodenum; K29.50 Unspecified chronic gastritis without bleeding; K31.A0 Gastric intestinal metaplasia, unspecified; K44.9 Diaphragmatic hernia without obstruction or gangrene; I10 Essential (primary) hypertension; Z79.899 Other long term (current) drug therapy; Z98.84 Bariatric surgery status
CPT/HCPCS: 43239; 88305; 88313; 88342; J2003; J2704

== ENCOUNTER → 2025-09-02 12:20 | Outpatient (BNV) | payer OTHER, SELFPAY | PROVIDERS: PCP Internal Medicine; Visit Provider Surgery | DX: K31.7 Polyp of stomach and duodenum (principal) | CPT/HCPCS: 43239; 91035 ==

== ENCOUNTER 2025-09-28 08:15 | Outpatient (AMB) | payer OTHER, SELFPAY ==
--- NOTE | 2025-09-28 08:03 | A.OFFVIS_ITS ---
VS Expanded 09/28/25 08:13 Height 5 ft 7 in Weight 210 lb BMI 32.9 Intake Visit Reasons: PHONE - PO LSG 01/25/25 Candle Wrapping Machine Operator Required: Yes Candle Wrapping Machine Operator Name: Rufus Cobb Allergies No Known Allergies Allergy (Verified 02/03/25 10:17) HPI Comments Details: This is a 50 yo F who is s/p LSG 01/25/2025. Presents for 8mo post op visit. Weight at last visit on 06/23/2025 was 235; weight today is 210 pounds, representing a 25 pound weight loss with a BMI today of 32.9. Starting weight 356lbs when she began the program in Aug 2024. No complaints of emesis, abdominal pain, or constipation. Rare reflux. Amlodipine, HCTZ, losartan on hold. Pt monitoring BP at home. Will take losartan if BP is high- needs it less often, took it today but prior to this did not need for 3 days. She was found to have anemia and is following up with hematology end of October, was referred by PCP. Pt had surveillance endoscopy last month. Per Dr Geovany Munoz report was reviewed. The DeMeester score was 0.3 and there was no association with any of the patient's symptoms. This is a normal study. Present meal plan includes: Premier premade shake x 2 No more protein bar A meal of protein/veg like fish and broccoli... says sometimes two meals per day takes aly MVI Exercise routine includes: bike, treadmill, trying to burn 2000 june/week -her leg wound has healed, but having difficulty getting back into the rhythm of exercise PFSH Medical History Menopause Hypertension Morbid obesity Surgical History S/P laparoscopic sleeve gastrectomy History of esophagogastroduodenoscopy (EGD) Hx of section Family History Mother No problems noted. Father No problems noted. Daughter No problems noted. Daughter No problems noted. Son No problems noted. Social History Household Members: Family Housing: House Are you a primary care trainer to a significant other at home: No Do you presently have visiting nurse or other home services: No Alcohol intake: never Patient Tobacco Use Status: Never used Tobacco Second Hand Smoke Exposure: No service: No Telehealth Telehealth Telehealth Platform: Telephone Location of provider rendering services: practice address Location of patient: address on file Patient Identification confirmed using: Name, : Yes Telehealth method: voice only Patient verbally consented to treatment: Yes Patient verbally consented to billing insurance company: Yes Patient informed of any privacy concerns related to visit: Yes Minutes spent on Phone/Video with Pt.: 24 Assessment & Plan Assessment & Plan (1) S/P laparoscopic sleeve gastrectomy: Code(s): Z98.84 - Bariatric surgery status Category: Surgical (2) Obesity: Code(s): E66.9 - Obesity, unspecified Category: Medical Plan I asked pt to text me a photo of her plate the next time she makes a meal. She is not sure how many forkfuls or bites of meat she is taking. Her total protein intake may not be appropriate. She will work on increasing exercise back to goal calories burned. Continue to monitor BP. Reminded pt to have labs done. She feels that she only wants to lose 5 additional pounds. I discussed that there are health risks with remaining obese. For now I encouraged her to work towards no longer having obesity with BMI < 30 or weight 190lbs. RTC 4 mo for annual. I encouraged pt to text me with any questions or concerns between visits and I will give her feedback regarding portion sizes. Orders: Orders Complete Blood Count Auto Diff Today Z98.84 - Bariatric surgery status Lipid Panel Today Z98.84 - Bariatric surgery status Hemoglobin A1c Today Z98.84 - Bariatric surgery status Insulin Today Z98.84 - Bariatric surgery status Comprehensive Met. Panel Today Z98.84 - Bariatric surgery status IRON PROFILE Today Z98.84 - Bariatric surgery status Ferritin Today Z98.84 - Bariatric surgery status
[2025-09-28 08:13] VITALS: BMI 32.9
--- OUTSIDE RECORDS SUMMARY | 2025-09-28 08:27 | XMS_ITS | Encounter Summary ---
Author Organization [facility] Address [address] [place] [id number] Care Team Providers Care Simulation Software Engineer Name Role Phone Alyson Mojica MD Primary Care Provider [phone] Reason for Referral * Consultation (Routine) - Authorized Specialty Diagnoses / Procedures Referred By Beatrice bernal Referred To Contact Hematology and Oncology Diagnoses Anemia, unspecified type Arden Kerr NP [address] [address] Phone: tel: fax: [facility] Hematology Oncology [address] [place] [address] Phone: tel: fax: Referral ID Status Reason Start Date Expiration Date Visits Requested Visits Authorized [id number] Authorized Specialty Services Required 09/06/2025 09/06/2026 1 1 Encounter Details Date Type Department Care Team ([facility] st Contact Info) Description 09/02/2025 Results Follow-Up Internal Medicine - [facility] [address] [phone] Arden Kerr NP [address] [address] Social History Tobacco Use Types Packs/Day Years [...] for your loved ones. For example, child protection specialist or elderly care for an older adult? [...] on file Sexual Orientation Not on file documented as of this encounter Ordered Prescriptions Prescription Sig Dispense Quantity Refills Last Filled Start Date End Date cholecalciferol (VITAMIN D-3) 50 mcg (2,000 unit) tabletIndications: Vitamin D deficiency Take 1 tablet (2,000 Units total) by mouth 1 (one) time each day. 90 tablet 3 09/06/2025 09/06/2026 documented in this encounter Plan of Treatment Upcoming Encounters Date Type Department Care Team (Late st Contact Info) Description 10/29/2025 9:30 AM EST Office Visit Internal Medicine - [facility] [address] [phone] Alyson Mojica MD [address] [place] [address] 11/02/2025 10:00 AM EST Office Visit [facility] Hematology Oncology [address] [place] [phone] Ena Colunga PA [address] [place] [address] Scheduled Referrals Name Type Priority Associated Diagnoses Order Schedule Ambulatory referral to Hematology / Oncology Outpatient Referral Routine Anemia, unspecified type 1 Occurrences starting 09/06/2025 until 09/06/2026 documented as of this encounter Visit Diagnoses Diagnosis Vitamin D deficiency- Primary Anemia, unspecified type documented in this encounter Additional Health Concerns Assessment Noted Time PHQ-9 Depression Total Score: 0 04/27/20 25 7:33 PM EDT documented as of this encounter Care Teams Simulation Software Engineer Relationship Specialty Start Date End Date Alyson Mojica MD [address] [phone] PCP - General 05/21/24 documented as of this encounter
--- OUTSIDE RECORDS SUMMARY | 2025-09-28 08:27 | XMS_ITS | Clinical Summary ---
Author Organization [facility] Address [address] [place] [address] Phone Care Team Providers Care Florist'S Decorator Name Role Phone Alyson Mojica MD Primary Care Provider [phone] Allergies No known active allergies Medications polyethylene [...] mouth daily. 90 tablet 2 5 Active amLODIPine (NORVASC) 5 mg tablet TAKE 1 TABLET BY MOUTH 1 TIME EACH DAY. 90 tablet 1 5 Active potassium chloride (KLOR-CON) 20 mEq packetIndication s:Hypokalemia Take 20 mEq by mouth 1 (one) time each day. 90 each 2 5 Active hydroCHLOROthiaz adalgisa (HYDRODIURIL) 50 mg tabletIndication s:Primary hypertension Take 1 tablet (50 mg total) by mouth 1 (one) time each day. 30 each 5 5 026 Active cholecalciferol (VITAMIN D-3) 50 mcg (2,000 unit) tabletIndication s:Vitamin D deficiency Take 1 tablet (2,000 Units total) by mouth 1 (one) time each day. 90 tablet 3 5 026 Active Active Problems Problem Noted Date Diagnosed Date Constipation 09/15/2024 Morbid obesity (CMS/[facility] V24, CMS/HCC V28) 2023 Primary hypertension 09/15/2024 Encounters Date Type Department Care Team Description 09/02/2025 Results Follow-Up Internal Medicine [address] [phone] Arden Kerr NP 08/27/2025 8:30 AM EDT Office Visit Internal Medicine [address] [phone] Arden Kerr NP Primary hypertension (Primary Dx); Hypokalemia; Vitamin B12 deficiency; Anemia, unspecified type; BMI 33.0-33.9,adult; S/P gastric sleeve procedure; High cholesterol; Healthcare maintenance 08/27/2025 Telephone Internal Medicine [address] [phone] Alyson Mojica MD 08/09/2025 1:00 PM EDT Office Visit Internal Medicine [address] [phone] Arden Kerr NP Routine adult health maintenance [...] care for your loved ones. For example, childcare attendant or elderly care for an older adult? [...] Sign Reading Time Taken Comments Blood Pressure 134/82 08/27/2025 8:40 AM EDT Pulse 84 08/27/2025 8:39 AM EDT Temperature 36.2 C (97.1 F) 08/27/2025 8:39 AM EDT Respiratory Rate 17 11/06/2024 10:33 AM EST Oxygen Saturation 94% 08/27/2025 8:39 AM EDT Inhaled Oxygen Concentration - - Weight 100 kg (221 lb 6.4 oz) 08/27/2025 8:39 AM EDT Height 172.7 cm (5' 7.99 ) 05/03/2025 10:23 AM E DT Body Mass Index 33.67 05/03/2025 10:23 AM EDT Plan of Treatment Upcoming Encounters Date Type Department Care Team (Late st Contact Info) Description 10/29/2025 9:30 AM EST Office Visit Internal Medicine - [address] [place] [address] Alyson Mojica MD [address] [place] [phone] 11/02/2025 10:00 AM EST Office Visit [facility] Hematology Oncology [address] [place] [phone] Ena Colunga PA [address] [place] [address] Health Maintenance Due Date Last Done Comments DTaP,Tdap,and Td Vaccines (1 - Tdap) 1992 Hepatitis B Vaccines (1 of 3 - 19+ 3-dose series) 1992 Pneumococcal Vaccine: 50+ Years (1 of 1 - PCV) 2023 Zoster Vaccines (1 of 2) 2023 HIV Screening 06/05/2024 Hepatitis C Screening 06/05/2024 COVID-19 Vaccine (1 - season) 2025 Influenza Vaccine (#1) 2025 Social Influencers of Health Screening 10/19/2025 10/19/2024 Hypertension/CHF/CAD Annual BMP Blood Test 08/27/2026 08/27/2025, 05/03/2025, 10/19/2024, Additional history exists Breast Cancer Screening 04/28/2027 04/28/20, 09/15/2024, 09/03/2024, Additional history exists Colorectal Cancer Screening: Colonoscopy 11/06/2027 11/06/2024 Cervical Cancer Screening: HPV 08/17/2029 08/17/2024 Cholesterol Screening (Lipid Panel) 08/27/2030 08/27/2025, 05/03/2025, 05/26/2024 RSV Immunization Adult Patients (1 [...] Procedure Name Priority Date/Time Associated Diagnosis Comments CBC WITH AUTO DIFFERENTIAL Routine 08/27/2025 8:10 AM EDT Anemia, unspecified type IRON AND TIBC Routine 08/27/2025 8:10 AM EDT Anemia, unspecified type FOLATE Routine 08/27/2025 8:10 AM EDT Anemia, unspecified type FERRITIN Routine 08/27/2025 8:10 AM EDT Anemia, unspecified type CBC AND DIFFERENTIAL Routine 08/27/2025 8:10 AM EDT Anemia, unspecified type VITAMIN D 25 HYDROXY Routine 08/27/2025 8:10 AM EDT Vitamin D deficiency VITAMIN B12 Routine 08/27/2025 8:10 AM EDT Vitamin B12 deficiency MAGNESIUM Routine 08/27/2025 8:10 AM EDT Routine adult health maintenance THYROID STIMULATING HORMONE WITH REFLEX TO FREE T4 AND FREE T3 Routine 08/27/2025 8:10 AM EDT Routine adult health maintenance HEMOGLOBIN A1C Routine 08/27/2025 8:10 AM EDT Screening for diabetes mellitus COMPREHENSIVE METABOLIC PANEL Routine 08/27/2025 8:10 AM EDT Routine adult health maintenance LIPID PANEL WITH REFLEX TO DIRECT LDL Routine 08/27/2025 8:10 AM EDT Screening for ischemic heart disease MG MAMMO DIGITAL DIAGNOSTIC W MED BILAT Routine 04/28/2025 11:52 AM EDT Encounter for screening mammogram for breast cancer COLONOSCOPY Routine 11/06/2024 10:12 AM EST Special screening for malignant neoplasms, colon HM HPV Routine 08/17/2024 from Last 3 Months or Most Recently Relevant to Health Maintenance Results * Thyroid stimulating hormone with reflex to free t4 and free t3 (08/27/2025 8:10 AM EDT) Pathologist [facility] TSH 3.01 0.40 - 4.00 mcIU/mL LAB CHEMISTRY METHOD 08/27/2025 11:49 AM EDT [facility] Blood Venous blood specimen / Unknown Venipuncture / Unknown 08/27/2025 8:10 AM EDT 08/27/2025 8:10 AM EDT us Arden Kerr NP LAB BLOOD ORDERABLES Final Resul t [facility] [address] [place] [address], [place] [phone] * (ABNORMAL) Lipid panel with reflex to direct LDL (08/27/2025 8:10 AM EDT) Cholesterol 283(H) 0 - 200 mg/dL LAB CHEMISTRY METHOD 08/27/2025 10:37 AM EDT [facility] Triglycerides 76 0 - 150 mg/dL LAB CHEMISTRY METHOD 08/27/2025 10:37 AM EDT [facility] HDL 66 >=40 mg/dL LAB CHEMISTRY METHOD 08/27/2025 10:37 AM EDT [facility] LDL Calculated 202(H) 0 - 100 mg/dL LAB CHEMISTRY METHOD 08/27/2025 10:37 AM EDT [facility] Comment:Estimated LDL Calcul ated using equation: Total cholesterol - HDL cholesterol - (Triglycerides/5) VLDL Cholesterol Michele 15.2 mg/dL LAB CHEMISTRY METHOD 08/27/2025 10:37 AM EDT [facility] Non HDL Chol. (LDL+VLDL) 217(H) <145 mg/dL LAB CHEMISTRY METHOD 08/27/2025 10:37 AM EDT [facility] Chol/HDL Ratio 4.3 0.0 - 4.4 LAB CHEMISTRY METHOD 08/27/2025 10:37 AM EDT [facility] Blood Venous blood specimen / Unknown Venipuncture / Unknown 08/27/2025 8:10 AM EDT 08/27/2025 8:10 AM EDT us Arden Kerr NP LAB BLOOD ORDERABLES Final Resul t [facility] [address] [place] [address], * (ABNORMAL) CBC auto differential (08/27/2025 8:10 AM EDT) WBC 5.5 4.8 - 10.8 K/mcL LAB HEMETOLOGY METHOD 08/27/2025 10:25 AM T [facility] RBC 3.70(L) 3.80 - 4.80 M/mcL LAB HEMETOLOGY METHOD 08/27/2025 10:25 AM [facility] Hemoglobin 10.8(L) 11.5 - 16.0 g/dL LAB HEMETOLOGY METHOD 08/27/2025 10:25 AM EDT [facility] Hematocrit 32.6(L) 35.0 - 47.0 % LAB HEMETOLOGY METHOD 08/27/2025 10:25 AM EDT [facility] MCV 87.4 79.0 - 98.0 FL LAB HEMETOLOGY METHOD 08/27/2025 10:25 AM [facility] MCH 29.0 27.0 - 32.0 pcg LAB HEMETOLOGY METHOD 08/27/2025 10:25 AM [facility] MCHC 33.1 32.0 - 37.0 g/dL LAB HEMETOLOGY METHOD 08/27/2025 10:25 AM [facility] RDW 13.1 11.0 - 15.0 % LAB HEMETOLOGY METHOD 08/27/2025 10:25 AM [facility] Platelets 148 130 - 400 K/mcL LAB HEMETOLOGY METHOD 08/27/2025 10:25 AM [facility] MPV 12.0(H) 7.0 - 11.0 FL LAB HEMETOLOGY METHOD 08/27/2025 10:25 AM [facility] NRBC 0.0 <1.0 % LAB HEMETOLOGY METHOD 08/27/2025 10:25 AM [facility] NRBC Absolute 0.00 <0.10 K/mcL LAB HEMETOLOGY METHOD 08/27/2025 10:25 AM [facility] Neutrophils Relative 51.9 % LAB HEMETOLOGY METHOD 08/27/2025 10:25 AM [facility] Lymphocytes Relative 35.0 % LAB HEMETOLOGY METHOD 08/27/2025 10:25 AM [facility] Monocytes Relative 10.5 % LAB HEMETOLOGY METHOD 08/27/2025 10:25 AM [facility] Eosinophils Relative 2.0 % LAB HEMETOLOGY METHOD 08/27/2025 10:25 AM [facility] Basophils Relative 0.4 % LAB HEMETOLOGY METHOD 08/27/2025 10:25 AM [facility] Immature Granulocytes Relative 0.2 % LAB HEMETOLOGY METHOD 08/27/2025 10:25 AM [facility] Neutrophils Absolute 2.83 1.50 - 7.00 K/mcL LAB HEMETOLOGY METHOD 08/27/2025 10:25 AM EDT [facility] Lymphocytes Absolute 1.91 1.00 - 5.00 K/mcL LAB HEMETOLOGY METHOD 08/27/2025 10:25 AM EDT [facility] Monocytes Absolute 0.57 0.20 - 1.00 K/mcL LAB HEMETOLOGY METHOD 08/27/2025 10:25 AM EDT [facility] Eosinophils Absolute 0.11 0.00 - 0.50 K/[facility] LAB HEMETOLOGY METHOD 08/27/2025 10:25 AM EDT [facility] Basophils Absolute 0.02 0.00 - 0.20 K/mcL LAB HEMETOLOGY METHOD 08/27/2025 10:25 AM EDT [facility] Immature Granulocytes Absolute 0.01 0.00 - 0.03 K/mcL LAB HEMETOLOGY METHOD 08/27/2025 10:25 AM EDT [facility] Blood Venous blood specimen / Unknown Venipuncture / Unknown 08/27/2025 8:10 AM EDT 08/27/2025 8:10 AM EDT us Arden Kerr NP LAB BLOOD ORDERABLES Final Resul t [facility] [address] [place] [address], * (ABNORMAL) Iron and TIBC (08/27/2025 8:10 AM EDT) Iron 43 40 - 150 mcg/dL LAB CHEMISTRY METHOD 08/27/2025 10:37 AM EDT [facility] TIBC 228(L) 250 - 450 mcg/dL LAB CHEMISTRY METHOD 08/27/2025 10:37 AM EDT [facility] Iron Saturation 19 15 - 50 % LAB CHEMISTRY METHOD 08/27/2025 10:37 AM EDT [facility] Blood Venous blood specimen / Unknown Venipuncture / Unknown 08/27/2025 8:10 AM EDT 08/27/2025 8:10 AM EDT Arden Kerr INSTRUCTIONAL MATERIAL DIRECTOR LAB BLOOD ORDERABLES Final Resul t Performing Organization Address City/[facility]/ZIP Co de Phone Number [facility] [address] [place] [address], [place] [phone] * (ABNORMAL) Vitamin D 25 hydroxy (08/27/2025 8:10 AM EDT) Vit D, 25-Hydroxy 26.2(L) 30.0 - 80.0 ng/mL LAB CHEMISTRY METHOD 08/27/2025 11:49 AM EDT [facility] Blood Venous blood specimen / Unknown Venipuncture / Unknown 08/27/2025 8:10 AM EDT 08/27/2025 8:10 AM EDT Arden Kerr INSTRUCTIONAL MATERIAL DIRECTOR LAB BLOOD ORDERABLES Final Resul t Performing Organization Address [facility] Co de Phone Number [facility] [address] [place] [address], [place] [phone] * Magnesium (08/27/2025 8:10 AM EDT) Magnesium 2.2 1.9 - 2.6 mg/dL LAB CHEMISTRY METHOD 08/27/2025 10:37 AM EDT [facility] Blood Venous blood specimen / Unknown Venipuncture / Unknown 08/27/2025 8:10 AM EDT 08/27/2025 8:10 AM EDT Arden Kerr INSTRUCTIONAL MATERIAL DIRECTOR LAB BLOOD ORDERABLES Final Resul t Performing Organization Address City/[facility]/ZIP Co de Phone Number [facility] [address] [place] [address], [place] [phone] * Hemoglobin A1c (08/27/2025 8:10 AM EDT) Pathologist [facility] Hemoglobin A1C 4.6 <6.5 % LAB CHEMISTRY METHOD 08/27/2025 12:33 PM EDT [facility] Mean Bld Glu Estim. 85 mg/dL LAB CHEMISTRY METHOD 08/27/2025 12:33 PM EDT [facility] Blood Venous blood specimen / Unknown Venipuncture / Unknown 08/27/2025 8:10 AM EDT 08/27/2025 8:10 AM EDT us Arden Kerr NP LAB BLOOD ORDERABLES Final Resul t Performing Organization Address City/[facility]/ZIP Co de Phone Number [facility] [address] [place] [address], [place] [phone] * (ABNORMAL) Folate (08/27/2025 8:10 AM EDT) [facility] Folate >20.0(H) 2.8 - 17.0 ng/ml LAB CHEMISTRY METHOD 08/27/2025 11:01 AM EDT [facility] Blood Venous blood specimen / Unknown Venipuncture / Unknown 08/27/2025 8:10 AM EDT 08/27/2025 8:10 AM EDT us Arden Kerr NP LAB BLOOD ORDERABLES Final Resul t [facility] [address] [place] [address], [place] [phone] * Ferritin (08/27/2025 8:10 AM EDT) Pathologist [facility] Ferritin 133 8 - 252 ng/mL LAB CHEMISTRY METHOD 08/27/2025 11:01 AM EDT [facility] Blood Venous blood specimen / Unknown Venipuncture / Unknown 08/27/2025 8:10 AM EDT 08/27/2025 8:10 AM EDT us Arden Kerr INSTRUCTIONAL MATERIAL DIRECTOR LAB BLOOD ORDERABLES Final Resul t [facility] [address] [place] [address], [place] [phone] * Vitamin B12 (08/27/2025 8:10 AM EDT) [facility] Vitamin B-12 590 250 - 900 pcg/mL LAB CHEMISTRY METHOD 08/27/2025 11:01 AM EDT [facility] Blood Venous blood specimen / Unknown Venipuncture / Unknown 08/27/2025 8:10 AM EDT 08/27/2025 8:10 AM EDT us Arden Kerr INSTRUCTIONAL MATERIAL DIRECTOR LAB BLOOD ORDERABLES Final Resul t Performing Organization Address City/[facility]/ZIP Co de Phone Number [facility] [address] [place] [address], [place] [phone] * (ABNORMAL) Comprehensive metabolic panel (08/27/2025 8:10 AM EDT) [facility] Sodium 140 133 - 145 mmol/L LAB CHEMISTRY METHOD 08/27/2025 11:01 AM [facility] Potassium 3.6 3.5 - 5.5 mmol/L LAB CHEMISTRY METHOD 08/27/2025 11:01 AM [facility] Chloride 108 96 - 110 mmol/L LAB CHEMISTRY METHOD 08/27/2025 11:01 AM [facility] CO2 27 21 - 32 mmol/L LAB CHEMISTRY METHOD 08/27/2025 11:01 AM [facility] Anion Gap 5 3 - 11 LAB CHEMISTRY METHOD 08/27/2025 11:01 AM [facility] Glucose 82 70 - 100 mg/dL LAB CHEMISTRY METHOD 08/27/2025 11:01 [facility] BUN 22 5 - 25 mg/dL LAB CHEMISTRY METHOD 08/27/2025 11:01 AM [facility] Creatinine 1.36(H) 0.50 - 1.10 mg/dL LAB CHEMISTRY METHOD 08/27/2025 11:01 AM [facility] eGFR 47(L) >=60 mL/min/1. 73m2 LAB CHEMISTRY METHOD 08/27/2025 11:01 AM [facility] Comment:Calculation based on the Chronic Kidney Disease Epidemiology Collaboration (CKD-EPI) equation refit without adjustment for race. BUN/Creatinine Ratio 16.2 LAB CHEMISTRY METHOD 08/27/2025 11:01 AM [facility] Calcium 9.9 8.5 - 10.5 mg/dL LAB CHEMISTRY METHOD 08/27/2025 11:01 AM [facility] AST (SGOT) 21 10 - 42 unit/L LAB CHEMISTRY METHOD 08/27/2025 11:01 AM [facility] ALT (SGPT) 20 10 - 60 unit/L LAB CHEMISTRY METHOD 08/27/2025 11:01 AM [facility] Alkaline Phosphatase 66 42 - 121 unit/L LAB CHEMISTRY METHOD 08/27/2025 11:01 AM [facility] Total Protein 6.8 6.0 - 8.0 g/dL LAB CHEMISTRY METHOD 08/27/2025 11:01 AM [facility] Albumin 3.6 3.2 - 5.0 g/dL LAB CHEMISTRY METHOD 08/27/2025 11:01 AM [facility] Total Bilirubin 1.0 0.0 - 1.4 mg/dL LAB CHEMISTRY METHOD 08/27/2025 11:01 AM [facility] Blood Venous blood specimen / Unknown Venipuncture / Unknown 08/27/2025 8:10 AM EDT 08/27/2025 8:10 AM EDT us Arden Kerr INSTRUCTIONAL MATERIAL DIRECTOR LAB BLOOD ORDERABLES Final Resul t [facility] ([facility] [address] [place] [address], [place] [phone] * MG Mammo Digital Diagnostic w Med [...] Breasts. Mammo Location: [facility], [address] [place], [place], [address], . -------- FINAL REPORT -------- Dictated By: Sarah Schreiber Dictated Date: 04/28/2025 13:04 ET Assigned Physician: Sarah Schreiber Reviewed and Electronically Signed By: Sarah Schreiber Signed Date: 04/28/2025 13:24 ET Workstation ID: [id number] Transcribed By: Self Edit Transcribed Date: 04/28/2025 [...] Resul t * COLONOSCOPY Anesthesia - MAC; [facility] ENDOSCOPY (11/06/2024 10:12 AM EST) Anatomical Region [...] pathology results. Narrative 11/06/2024 10:17 AM EST [facility] GI Patient Name: Rupinder Rico Procedure Date: 11/06/2024 10:14 AM Date of : 1975 Age: 49 Gender: Female Note Status: Finalized Attending MD: aDnyelle Bautista DO, [id number] Procedure Date No Time: 11/06/2024 Procedure: Colonoscopy [...] the physician, the nurse, the anesthesiologist, the census enumerator and the building energy retrofit technician in the pre-procedure area in the [...] retroflexion views. Procedure Code(s): --- Professional --- 80212, Colonoscopy, flexible; with removal of tumor(s), polyp(s), or other lesion(s) by snare technique Diagnosis Code(s): --- Professional --- D12.5, Benign neoplasm of sigmoid colon K64.9, Unspecified hemorrhoids Z12.11, Encounter for screening for malignant neoplasm of colon CPT copyright 2020 [employer]. All rights reserved. The codes documented in this report are preliminary and upon railroad worker review may be revised to meet current compliance requirements. DANYELLE Bautista DO 11/06/2024 10:16:58 AM This report has been signed electronically.Danyelle Bautista DO Number of Addenda: 0 Note Initiated On: 11/06/2024 10:14 AM Endoscopy Department at [facility] - [address] [place] [phone] Procedure Note Danyelle Bautista DO - 11/06/2024 [facility] GI Patient Name: Rupinder Rico Procedure Date: 11/06/2024 10:14 AM Date of : 1975 Age: 49 Gender: Female Note Status: Finalized Attending MD: Danyelle Bautista DO, [id number] Procedure Date No Time: 11/06/2024 Procedure: Colonoscopy [...] the physician, the nurse, the anesthesiologist, the census enumerator and thetechnician in the pre-procedure area in [...] retroflexion views. Procedure Code(s): --- Professional --- 71620, Colonoscopy, flexible; with removal of tumor(s), polyp(s), or other lesion(s) by snare technique Diagnosis Code(s): --- Professional --- D12.5, Benign neoplasm of sigmoid colon K64.9, Unspecified hemorrhoids Z12.11, Encounter for screening for malignantneoplasm of colon CPT copyright 2020 [employer]. All rights reserved. The codes documented in this report are preliminary and upon railroad worker reviewmay be revised to meet current compliance requirements. DANYELLE Bautista DO 11/06/2024 10:16:58 AM This report has been signed electronically.Danyelle Bautista DO Number of Addenda: 0 Note Initiated On: 11/06/2024 10:14 AM Endoscopy Department at [facility] - [address] [place] [phone] IMPRESSION: - Hemorrhoids found on perianal exam. [...] sult * Cervical Cancer Screening: HPV (08/17/2024) Pathologist [facility] Cervical Cancer Screening: HPV normal, abstracted Historical Provider HEALTH MAINTENANCE Final Result from Last 3 Months or Most Recently Relevant to Health Maintenance Insurance [email or web address] PLAN Care Teams Florist'S Decorator Relationship Specialty Start Date End Date Alyson Mojica MD [address] [place] [phone] PCP - General 05/21/24
== END 2025-09-28 08:32 | disposition home or self-care (01) ==
LOC: HO.HBS 08:15
PROVIDERS: PCP Internal Medicine; Visit Provider Physician Assistant Surgical
DX: E66.9 Obesity, unspecified (principal); Z68.32 Body mass index [BMI] 32.0-32.9, adult; Z90.3 Acquired absence of stomach [part of]; Z98.84 Bariatric surgery status
CPT/HCPCS: 98014

== ENCOUNTER 2025-10-21 09:51 | Outpatient (REF) | payer OTHER, SELFPAY ==
[2025-10-21 10:18] LABS: MANUAL DIFF FLAG NO
[2025-10-21 10:46] LABS: Hematocrit 34.7 % (37.0-47.0); Hemoglobin 11.6 g/dl (12.0-16.0); Imm Gran Abs Auto 0.01 X10*3/uL (0.00-0.03); Imm Gran Pct Auto 0.2 % (0.0-0.4); Lymphocytes Absolute Auto 1.5 X10*3/uL (1.2-4.9); Mean Corpuscular HGB Conc 33.4 g/dl (31.0-35.0); Mean Corpuscular Hemoglobin 29.1 pg (27.0-33.0); Mean Corpuscular Volume 87.0 fL (80.0-98.0); NRBC Abs Auto 0.000 X10*3/uL (0.0-0.012); NRBC Pct Auto 0.0 /100WBC (0.0-0.2); Platelet Count 151 X10*3/uL (160-400); Red Blood Count 3.99 X10*6/uL (4.20-5.50); White Blood Count 4.6 X10*3/uL (4.8-10.8)
--- OUTSIDE RECORDS SUMMARY | 2025-10-21 11:59 | XMS_ITS | Clinical Summary ---
Author Organization [facility] Address [address] [place] [address] Phone Care Team Providers Care Mapping Engineer Name Role Phone Alyson Mojica MD Primary Care Provider [phone] Allergies No known active allergies Medications polyethylene [...] Team Description 09/02/2025 Results Follow-Up Internal Medicine [address] [phone] Arden Kerr NP 08/27/2025 8:30 AM EDT Office Visit Internal Medicine [address] [phone] Arden Kerr NP Primary hypertension (Primary Dx); Hypokalemia; Vitamin B12 deficiency; Anemia, unspecified type; BMI 33.0-33.9,adult; S/P gastric sleeve procedure; High cholesterol; Healthcare maintenance 08/27/2025 Telephone Internal Medicine [address] [phone] Alyson Mojica MD 08/09/2025 1:00 PM EDT Office Visit Internal Medicine [address] [address] Arden Kerr NP Routine adult health maintenance [...] for your loved ones. For example, child attendant or elderly care for an older [...] AM EST Office Visit Internal Medicine - [address] [place] [address] Alyson Mojica MD [address] [place] [phone] 11/02/2025 10:00 AM EST Office Visit [facility] Hematology Oncology [address] [place] [phone] Ena Colunga PA [address] [place] [address] 11/16/2025 10:00 AM EST [facility]ointment [facility] at [address] [phone] Health Maintenance Due Date Last Done Comments DTaP,Tdap,and Td Vaccines (1 - Tdap) 1992 Hepatitis B Vaccines (1 of 3 - 19+ 3-dose series) 1992 Pneumococcal Vaccine: 50+ Years (1 of 1 - PCV) 2023 Zoster Vaccines (1 of 2) 2023 HIV Screening 06/05/2024 Hepatitis C Screening 06/05/2024 COVID-19 Vaccine (1 - 2024- season) 2025 Influenza Vaccine (#1) 2025 Social [...] free t3 (08/27/2025 8:10 AM EDT) Pathologist [facility] TSH 3.01 0.40 - 4.00 mcIU/mL LAB CHEMISTRY METHOD 08/27/2025 11:49 AM EDT [facility] Blood Venous blood specimen / Unknown Venipuncture / Unknown 08/27/2025 8:10 AM EDT 08/27/2025 8:10 AM EDT us Arden Kerr IV THERAPY NURSE LAB BLOOD ORDERABLES Final Resul t [facility] [address] [place] [address], [place] [phone] * (ABNORMAL) Lipid panel with reflex to direct LDL (08/27/2025 8:10 AM EDT) Cholesterol 283(H) 0 - 200 mg/dL LAB CHEMISTRY METHOD 08/27/2025 10:37 AM EDT [facility] Triglycerides 76 0 - 150 mg/dL LAB CHEMISTRY METHOD 08/27/2025 10:37 AM EDT [facility] HDL 66 >=40 mg/dL LAB CHEMISTRY METHOD 08/27/2025 10:37 AM EDT [facility] LDL Calculated 202(H) 0 - 100 mg/dL LAB CHEMISTRY METHOD 08/27/2025 10:37 AM EDT [facility] Comment:Estimated LDL Calcul ated using equation: Total cholesterol - HDL cholesterol - (Triglycerides/5) VLDL Cholesterol Michele 15.2 mg/dL LAB CHEMISTRY METHOD 08/27/2025 10:37 AM EDT [facility] Non HDL Chol. (LDL+VLDL) 217(H) <145 mg/dL LAB CHEMISTRY METHOD 08/27/2025 10:37 AM EDT [facility] Chol/HDL Ratio 4.3 0.0 - 4.4 LAB CHEMISTRY METHOD 08/27/2025 10:37 AM EDT [facility] Blood Venous blood specimen / Unknown Venipuncture / Unknown 08/27/2025 8:10 AM EDT 08/27/2025 8:10 AM EDT us Arden Kerr NP LAB BLOOD ORDERABLES Final Resul t [facility] [address] [place] [address], * (ABNORMAL) CBC auto differential (08/27/2025 8:10 AM EDT) WBC 5.5 4.8 - 10.8 K/[facility] LAB HEMETOLOGY METHOD 08/27/2025 10:25 AM [facility] RBC 3.70(L) 3.80 - 4.80 M/[facility] LAB HEMETOLOGY METHOD 08/27/2025 10:25 AM [facility] Hemoglobin 10.8(L) 11.5 - 16.0 g/dL LAB HEMETOLOGY METHOD 08/27/2025 10:25 AM [facility] Hematocrit 32.6(L) 35.0 - 47.0 % LAB HEMETOLOGY METHOD 08/27/2025 10:25 AM [facility] MCV 87.4 79.0 - 98.0 FL LAB HEMETOLOGY METHOD 08/27/2025 10:25 AM [facility] MCH 29.0 27.0 - 32.0 pcg LAB HEMETOLOGY METHOD 08/27/2025 10:25 AM [facility] MCHC 33.1 32.0 - 37.0 g/dL LAB HEMETOLOGY METHOD 08/27/2025 10:25 AM [facility] RDW 13.1 11.0 - 15.0 % LAB HEMETOLOGY METHOD 08/27/2025 10:25 AM [facility] Platelets 148 130 - 400 K/mcL LAB HEMETOLOGY METHOD 08/27/2025 10:25 AM [facility] MPV 12.0(H) 7.0 - 11.0 FL LAB HEMETOLOGY METHOD 08/27/2025 10:25 AM [facility] NRBC 0.0 <1.0 % LAB HEMETOLOGY METHOD 08/27/2025 10:25 AM [facility] NRBC Absolute 0.00 <0.10 K/mcL LAB HEMETOLOGY METHOD 08/27/2025 10:25 AM [facility] Neutrophils Relative 51.9 % LAB HEMETOLOGY METHOD 08/27/2025 10:25 AM [facility] Lymphocytes Relative 35.0 % LAB HEMETOLOGY METHOD 08/27/2025 10:25 AM [facility] Monocytes Relative 10.5 % LAB HEMETOLOGY METHOD 08/27/2025 10:25 AM [facility] Eosinophils Relative 2.0 % LAB HEMETOLOGY METHOD 08/27/2025 10:25 AM [facility] Basophils Relative 0.4 % LAB HEMETOLOGY METHOD 08/27/2025 10:25 AM [facility] Immature Granulocytes Relative 0.2 % LAB HEMETOLOGY METHOD 08/27/2025 10:25 AM EDT [facility] Neutrophils Absolute 2.83 1.50 - 7.00 K/mcL LAB HEMETOLOGY METHOD 08/27/2025 10:25 AM EDT [facility] Lymphocytes Absolute 1.91 1.00 - 5.00 K/mcL LAB HEMETOLOGY METHOD 08/27/2025 10:25 AM EDT [facility] Monocytes Absolute 0.57 0.20 - 1.00 K/mcL LAB HEMETOLOGY METHOD 08/27/2025 10:25 AM EDT [facility] Eosinophils Absolute 0.11 0.00 - 0.50 K/mcL LAB HEMETOLOGY METHOD 08/27/2025 10:25 AM EDT [facility] Basophils Absolute 0.02 0.00 - 0.20 K/mcL LAB HEMETOLOGY [facility] Immature Granulocytes Absolute 0.01 0.00 - 0.03 K/mcL LAB HEMETOLOGY METHOD 08/27/2025 10:25 AM T [facility] Blood Venous blood specimen / Unknown Venipuncture / Unknown 08/27/2025 8:10 AM EDT 08/27/2025 8:10 AM EDT us Arden Kerr NP LAB BLOOD ORDERABLES Final Resul t [facility] [address] [place] [address], * (ABNORMAL) Iron and TIBC (08/27/2025 8:10 AM EDT) Iron 43 40 - 150 mcg/dL LAB CHEMISTRY METHOD 08/27/2025 10:37 AM EDT [facility] TIBC 228(L) 250 - 450 mcg/dL LAB CHEMISTRY METHOD 08/27/2025 10:37 AM EDT [facility] Iron Saturation 19 15 - 50 % LAB CHEMISTRY METHOD 08/27/2025 10:37 AM EDT [facility] Blood Venous blood specimen / Unknown Venipuncture / Unknown 08/27/2025 8:10 AM EDT 08/27/2025 8:10 AM EDT us Arden Kerr IV THERAPY NURSE LAB BLOOD ORDERABLES Final Resul t Performing Organization Address City/[facility] de Phone Number [facility] [address] [place] [address], [place] [phone] * (ABNORMAL) Vitamin D 25 hydroxy (08/27/2025 8:10 AM EDT) Pathologist [facility] Vit D, 25-Hydroxy 26.2(L) 30.0 - 80.0 ng/mL LAB CHEMISTRY METHOD 08/27/2025 11:49 AM EDT [facility] Blood Venous blood specimen / Unknown Venipuncture / Unknown 08/27/2025 8:10 AM EDT 08/27/2025 8:10 AM EDT us Arden eKrr IV THERAPY NURSE LAB BLOOD ORDERABLES Final Resul t Performing Organization Address [facility] de Phone Number [facility] [address] [place] [address], [place] [phone] * Magnesium (08/27/2025 8:10 AM EDT) Pathologist [facility] Magnesium 2.2 1.9 - 2.6 mg/dL LAB CHEMISTRY METHOD 08/27/2025 10:37 AM EDT [facility] Blood Venous blood specimen / Unknown Venipuncture / Unknown 08/27/2025 8:10 AM EDT 08/27/2025 8:10 AM EDT us Arden Kerr IV THERAPY NURSE LAB BLOOD ORDERABLES Final Resul t Performing Organization Address City/[facility] de Phone Number [facility] [address] [place] [address], [place] [phone] * Hemoglobin A1c (08/27/2025 8:10 AM EDT) [facility] Hemoglobin A1C 4.6 <6.5 % LAB CHEMISTRY METHOD 08/27/2025 12:33 PM EDT [facility] Mean Bld Glu Estim. 85 mg/dL LAB CHEMISTRY METHOD 08/27/2025 12:33 PM EDT [facility] Blood Venous blood specimen / Unknown Venipuncture / Unknown 08/27/2025 8:10 AM EDT 08/27/2025 8:10 AM EDT Arden Kerr NP LAB BLOOD ORDERABLES Final Resul t [facility] [address] [place] [address], [place] [phone] * (ABNORMAL) Folate (08/27/2025 8:10 AM EDT) [facility] Folate >20.0(H) 2.8 - 17.0 ng/ml LAB CHEMISTRY METHOD 08/27/2025 11:01 AM EDT [facility] Blood Venous blood specimen / Unknown Venipuncture / Unknown 08/27/2025 8:10 AM EDT 08/27/2025 8:10 AM EDT Arden Kerr IV THERAPY NURSE LAB BLOOD ORDERABLES Final Resul t [facility] [address] [place] [address], [place] [phone] * Ferritin (08/27/2025 8:10 AM EDT) [facility] Ferritin 133 8 - 252 ng/mL LAB CHEMISTRY METHOD 08/27/2025 11:01 AM EDT [facility] Blood Venous blood specimen / Unknown Venipuncture / Unknown 08/27/2025 8:10 AM EDT 08/27/2025 8:10 AM EDT us Arden Kerr IV THERAPY NURSE LAB BLOOD ORDERABLES Final Resul t Performing Organization Address City/[facility]/ZIP Co de Phone Number [facility] [address] [place] [address], [place] [phone] * Vitamin B12 (08/27/2025 8:10 AM EDT) [facility] Vitamin B-12 590 250 - 900 pcg/mL LAB CHEMISTRY METHOD 08/27/2025 11:01 AM EDT [facility] Blood Venous blood specimen / Unknown Venipuncture / Unknown 08/27/2025 8:10 AM EDT 08/27/2025 8:10 AM EDT Arden Kerr IV THERAPY NURSE LAB BLOOD ORDERABLES Final Resul t Performing Organization Address [facility]/ZIP Co de Phone Number [facility] [address] [place] [address], [place] [phone] * (ABNORMAL) Comprehensive metabolic panel (08/27/2025 8:10 AM EDT) [facility] Sodium 140 133 - 145 mmol/L LAB CHEMISTRY METHOD 08/27/2025 11:01 AM EDT [facility] Potassium 3.6 3.5 - 5.5 mmol/L LAB CHEMISTRY METHOD 08/27/2025 11:01 AM EDT [facility] Chloride 108 96 - 110 mmol/L LAB CHEMISTRY METHOD 08/27/2025 11:01 AM EDT [facility] CO2 27 21 - 32 mmol/L LAB CHEMISTRY METHOD 08/27/2025 11:01 AM EDT [facility] Anion Gap 5 3 - 11 LAB CHEMISTRY METHOD 08/27/2025 11:01 AM EDT [facility] Glucose 82 70 - 100 mg/dL LAB CHEMISTRY METHOD 08/27/2025 11:01 AM [facility] BUN 22 5 - 25 mg/dL LAB CHEMISTRY METHOD 08/27/2025 11:01 AM [facility] Creatinine 1.36(H) 0.50 - 1.10 mg/dL LAB CHEMISTRY METHOD 08/27/2025 11:01 AM [facility] eGFR 47(L) >=60 mL/min/1. 73m2 LAB CHEMISTRY METHOD 08/27/2025 11:01 AM [facility] Comment:Calculation based on the Chronic Kidney Disease Epidemiology Collaboration (CKD-EPI) equation refit without adjustment for race. BUN/Creatinine Ratio 16.2 LAB CHEMISTRY METHOD 08/27/2025 11:01 AM [facility] Calcium 9.9 8.5 - 10.5 mg/dL LAB CHEMISTRY METHOD 08/27/2025 11:01 AM [facility] AST (SGOT) 21 10 - 42 unit/L LAB CHEMISTRY METHOD 08/27/2025 11:01 AM [facility] ALT (SGPT) 20 10 - 60 unit/L LAB CHEMISTRY METHOD 08/27/2025 11:01 AM [facility] Alkaline Phosphatase 66 42 - 121 unit/L LAB CHEMISTRY METHOD 08/27/2025 11:01 AM [facility] Total Protein 6.8 6.0 - 8.0 g/dL LAB CHEMISTRY METHOD 08/27/2025 11:01 AM [facility] Albumin 3.6 3.2 - 5.0 g/dL LAB CHEMISTRY METHOD 08/27/2025 11:01 AM [facility] Total Bilirubin 1.0 0.0 - 1.4 mg/dL LAB CHEMISTRY METHOD 08/27/2025 11:01 AM [facility] Blood Venous blood specimen / Unknown Venipuncture / Unknown 08/27/2025 8:10 AM EDT 08/27/2025 8:10 AM EDT us Arden Kerr IV THERAPY NURSE LAB BLOOD ORDERABLES Final Resul t [facility] [address] [place] [address], [place] [phone] * MG Mammo Digital Diagnostic w Med [...] Breasts. Mammo Location: [facility], [address] [place] [address], [id number], . -------- FINAL REPORT -------- Dictated By: Sarah Schreiber Dictated Date: 04/28/2025 13:04 ET Assigned Physician: Sarah Schreiber Reviewed and Electronically Signed By: Sarah Schreiber Signed Date: 04/28/2025 13:24 ET Workstation ID: [id number] Transcribed By: Self Edit Transcribed Date: 04/28/2025 [...] Resul t * COLONOSCOPY Anesthesia - MAC; [facility] ENDOSCOPY (11/06/2024 10:12 AM EST) Anatomical Region [...] pathology results. Narrative 11/06/2024 10:17 AM EST [facility] GI Patient Name: Rupinder Rico Procedure Date: 11/06/2024 10:14 AM Date of : 1975 Age: 49 Gender: Female Note Status: Finalized Attending MD: Danyelle Bautista DO, [id number] Procedure Date No Time: 11/06/2024 Procedure: Colonoscopy [...] the physician, the nurse, the anesthesiologist, the science manager and the train control electronic technician in the pre-procedure area in the [...] retroflexion views. Procedure Code(s): --- Professional --- 98346, Colonoscopy, flexible; with removal of tumor(s), polyp(s), or other lesion(s) by snare technique Diagnosis Code(s): --- Professional --- D12.5, Benign neoplasm of sigmoid colon K64.9, Unspecified hemorrhoids Z12.11, Encounter for screening for malignant neoplasm of colon CPT copyright 2020 [employer]. All rights reserved. The codes documented in this report are preliminary and upon proof technician review may be revised to meet current compliance requirements. DANYELLE Bautista DO 11/06/2024 10:16:58 AM This report has been signed electronically.Danyelle Buatista DO Number of Addenda: 0 Note Initiated On: 11/06/2024 10:14 AM Endoscopy Department at [facility] - [address] [place] [phone] Procedure Note Danyelle Bautista DO - 11/06/2024 [facility] GI Patient Name: Rupinder Rico Procedure Date: 11/06/2024 10:14 AM Date of : 1975 Age: 49 Gender: Female Note Status: Finalized Attending MD: Danyelle Bautista DO, [id number] Procedure Date No Time: 11/06/2024 Procedure: Colonoscopy [...] the physician, the nurse, the anesthesiologist, the science manager and thetechnician in the pre-procedure area in [...] retroflexion views. Procedure Code(s): --- Professional --- 62592, Colonoscopy, flexible; with removal of tumor(s), polyp(s), or other lesion(s) by snare technique Diagnosis Code(s): --- Professional --- D12.5, Benign neoplasm of sigmoid colon K64.9, Unspecified hemorrhoids Z12.11, Encounter for screening for malignantneoplasm of colon CPT copyright 2020 [employer]. All rights reserved. The codes documented in this report are preliminary and upon proof technician reviewmay be revised to meet current compliance requirements. DANYELLE Bautista DO 11/06/2024 10:16:58 AM This report has been signed electronically.Danyelle Bautista DO Number of Addenda: 0 Note Initiated On: 11/06/2024 10:14 AM Endoscopy Department at [facility] - [address] [place] [phone] IMPRESSION: - Hemorrhoids found on perianal exam. [...] Most Recently Relevant to Health Maintenance Insurance [facility] [employer] Care Teams Mapping Engineer Relationship Specialty Start Date End Date Alyson Mojica MD [address] [phone] PCP - General 05/21/24
--- OUTSIDE RECORDS SUMMARY | 2025-10-21 11:59 | XMS_ITS | Encounter Summary ---
Author Organization [facility] Address [address] [place] [phone] Care Team Providers Care Retirement Plan Specialist Name Role Phone Alyson Mojica MD Primary Care Provider [phone] Reason for Referral * Consultation (Routine) - Authorized Specialty Diagnoses / Procedures Referred By Beatrice bernal Referred To Contact Hematology and Oncology Diagnoses Anemia, unspecified type Arden Kerr NP [address] [address] Phone: tel: fax: [facility] Hematology Oncology [address] [place] [address] Phone: tel: fax: Referral ID Status Reason Start Date Expiration Date Visits Requested Visits Authorized [id number] Authorized Specialty Services Required 09/06/2025 09/06/2026 1 1 Encounter Details Date Type Department Care Team ([facility] st Contact Info) Description 09/02/2025 Results Follow-Up Internal Medicine - [place] [address] [phone] Arden Kerr NP [address] [address] Social History Tobacco Use Types Packs/Day Years [...] for your loved ones. For example, child day care teacher or elderly care for an older [...] Visit Internal Medicine [facility] [address] [phone] Alyson Mojica MD [address] [place] [address] 11/02/2025 10:00 AM EST Office Visit [facility] Hematology Oncology [address] [place] [phone] Ena Colunga PA [address] [place] [address] 11/16/2025 10:00 AM EST Appointment [facility] at [address] [phone] Scheduled Referrals Name Type Priority Associated Diagnoses [...] documented as of this encounter Care Teams Retirement Plan Specialist Relationship Specialty Start Date End Date Alyson Mojica MD [address] [phone] PCP - General 05/21/24 documented as of this encounter
[2025-10-21 12:11] LABS: Alanine Aminotransferase 12 U/L (0-31); Albumin Level 4.0 g/dL (3.5-5.0); Alkaline Phosphatase 60 U/L (39-117); Anion Gap 10 (12-20); Aspartate Amino Transferase 27 U/L (5-31); Blood Urea Nitrogen 27 mg/dL (9-16); Calcium 9.9 mg/dL (8.4-10.2); Carbon Dioxide 28 mmol/L (22-29); Chloride 107 mmol/L (96-108); Cholesterol 287 mg/dL (<200); Estimated Glomerular Filt Rate 49; Ferritin 135 ng/mL (10-250); HDL Cholesterol 57 mg/dL (>40); Iron 51 mcg/dL (30-160); Percent Iron Saturation 26 % (15-50); Potassium 3.4 mmol/L (3.3-5.1); Sodium 142 mmol/L (135-145); Total Iron Binding Capacity 199 mcg/dL (228-428); Total Protein 6.9 g/dL (6.5-8.0); Triglycerides 92 mg/dL (<150); Unsaturated Iron Binding 148 ug/dL
[2025-10-21 12:35] LABS: Folate 14.9 ng/mL (> or = 4.0); Vitamin B12 450 pg/mL (200-900)
== END 2025-10-21 09:52 | disposition home or self-care (01) ==
LOC: HO.LAB 09:51
PROVIDERS: Visit Provider Physician Assistant Surgical
DX: Z98.84 Bariatric surgery status (principal)
CPT/HCPCS: 36415; 80053; 80061; 82306; 82607; 82728; 82746; 83036; 83525; 83540; 84425; 84443; 84590; 84630; 85025; 86140